=== PATIENT | male | born 1985 | race Caucasian/White ===

== ENCOUNTER 2024-02-10 14:07 | Inpatient (IN) | payer OTHER, SELFPAY ==
[2024-02-10 14:32] VITALS: PULSE 103; RESP 18; TEMP 37.3; O2SAT 96; BMI 35.8
[2024-02-10 14:34] VITALS: BP 134/85; PULSE 103; RESP 18; TEMP 37.3; O2SAT 96
--- NOTE | 2024-02-10 14:37 | ED_ITS ---
HPI - General Adult General Chief complaint: Psychiatric Symptoms Stated complaint: crisis Time Seen by Provider: 02/10/24 14:36 Source: patient Mode of arrival: ambulatory Limitations: no limitations History of Present Illness ED Provider: Linda Easley PA-C HPI narrative: Patient is a 38 year old assigned male at with no reported medical history presenting to the emergency department today with suicidal ideation. Patient states that he has been feeling more depressed lately but does not have a plan. Patient denies any dizziness, lightheadedness, abdominal pain, nausea, vomiting, fever, chills, blurry vision, double vision, loss of vision, chest pain, difficulty breathing, shortness of breath, back pain, night sweats, pain with urination, increased urinary frequency, increased urinary urgency, blood in his urine or stool, syncope or a near syncopal episode, recent trauma or falls, bowel incontinence, bladder incontinence, or any other complaints at this time. Relieving factors: none Exacerbating factors: none Associated symptoms: denies other symptoms Treatments prior to arrival: none Related Data Home Medications ?Medication ?Instructions ?Recorded ?Confirmed aripiprazole 400 mg suspension, 400 mg IM QMONTH 02/10/24 02/10/24 extended rel.intramuscular syringe (Christen Merida) Allergies Allergy/AdvReac Type Severity Reaction Status Date / Time No Known Allergies Allergy Unverified 02/10/24 14:34 Review of Systems 2 Constitutional: Constitutional: Reports no additional constitutional complaints, Denies chills, Denies fever(s) and Denies night sweats Eyes: Eyes: Reports no additional eye complaints, Denies blurry vision, Denies change in vision, Denies diplopia, Denies eye discharge, Denies loss of vision and Denies eye pain ENT: Denies dizziness Cardiovascular: Cardiovascular: Reports no additional cardiovascular complaints, Denies chest pain, Denies lightheadedness, Denies Loss of Consciousness and Denies dyspnea Respiratory: Respiratory: Reports no additional respiratory complaints and Denies dyspnea Gastrointestinal: Gastrointestinal: Reports no additional gastrointestinal complaints, Denies abdominal pain, Denies melena, Denies hematochezia, Denies change in bowel habits and Denies change in stool character Genitourinary: Genitourinary: Reports no additional male genitourinary complaints, Denies hematuria, Denies oliguria, Denies difficulty urinating, Denies dysuria, Denies urinary frequency, Denies urinary hesitancy, Denies urinary incontinence and Denies urinary urgency Musculoskeletal: Musculoskeletal: Reports no additional musculoskeletal complaints, Denies numbness and Denies tingling Neurologic: Denies dizziness, Denies loss of vision, Denies numbness and Denies tingling Psychiatric: Psychiatric: Denies homicidal ideation and Reports suicidal ideation Endocrine: Endocrine: Reports no additional endocrine complaints Hematologic/Lymphatic: Hematologic/Lymphatic: Reports no additional hematologic/lymphatic complaints Allergic/Immunologic: Allergic/Immunologic: Reports no additional allergic/immunologic complaints [facility] Past Medical History Attestation statement: The following information was validated with the patient. Source: old records reviewed and nursing notes reviewed Social History Social History Alcohol intake: current Alcohol intake frequency: holidays/special occasions only Smoked in Last 30 Days: No Use of substances other than those prescribed or required for medical reasons: No Advance Directives: No Advance Directives Information Provided: No Do you have a plan to hurt others: No Plan Physical Exam ED Vital Signs: Vital Signs - 24 hr 02/10/24 14:32 02/10/24 14:34 02/10/24 21:27 Temperature 99.1 F 99.1 F 98.4 F Pulse Rate 103 H 103 H 85 Respiratory Rate 18 18 17 Blood Pressure 134/85 126/91 H Pulse Oximetry 96 96 97 Oxygen Delivery Method Room Air Room Air Room Air 02/11/24 02:17 Temperature 97.9 F Pulse Rate 81 Respiratory Rate 16 Blood Pressure 117/86 Pulse Oximetry 96 Oxygen Delivery Method Room Air BMI result Body Mass Index 35.8 Const General: cooperative, no acute distress, alert and awake Nutritional Appearance: well nourished Orientation/consciousness: patient oriented x3 Limitations: no limitations HENMT Head: Yes normal to inspection and Yes atraumatic Ears: hearing grossly normal bilaterally and external ears normal General nose exam: Normal external nose present, no nasal discharge noted and no epistaxis Face and sinus: Yes normal facial exam, No abrasion and No laceration Mouth: Normal oral and palatal mucosa present, no drooling and no muffled voice Eyes General: appearance normal, both eyes and all related structures Periorbital: periorbital findings normal Eyelids: Yes eyelids normal Conjunctivae: conjunctivae normal Pupils: Equal, round and reactive pupils present EOM: EOMs intact bilaterally Neck Neck: Yes normal visual inspection, Yes full ROM and Yes no lymphadenopathy Chest Chest palpation & inspection: normal inspection of the chest Resp Effort & Inspection: normal respiratory effort and able to speak in complete sentences GI Inspection: Yes normal to inspection Neuro General: patient oriented x3 and moves all extremities Cranial nerves: Yes Equal, round and reactive pupils present Cognition (Neuro): normal cognition Extrem General: Yes normal to inspection, Yes full ROM and Yes capillary refill normal Psych Appearance: grossly normal Mental Status: mental status grossly normal Affect: Sad affect present Attitude: Guarded attititude/behavior present Thought content: Suicidality present Course Reevaluation(s) Reevaluation #1: Physician observation continued. Uneventful night. Vital signs stable. No complaints from nursing overnight. Med reconciliation reviewed and done. Pending disposition. Will continue to monitor. Time: 07:29 Medical Decision Making Medical Decision Making MDM Narrative: Patient is a 38 year old assigned male at with no reported medical history presenting to the emergency department today with suicidal ideation. Patient's physical exam was as noted in the physical exam portion of this note. Patient's blood work was unremarkable. Patient's urine showed no acute process. I explained my physical exam findings as well as all test results to the patient. I answered all questions asked by the patient. Patient's disposition is pending CARE team evaluation. Differential Diagnosis Differential Diagnoses: The differential diagnosis associated with the presentation includes Depression Suicidal ideation Admission/Observation Consideration of admission/observation: Escalation of care including admission/observation considered Patient's disposition will be determined after CARE team evaluation. Lab Data [facility] Lab Attestation statement: I reviewed the patient's lab results. My interpretation of these results are in the MDM Rationale portion of this note. 02/10/24 15:30 02/10/24 15:30 Labs: Lab Results 02/10/24 02/10/24 Range/Units 14:50 15:30 WBC 6.1 (4.8-10.8) X10*3/uL RBC 5.12 (4.60-5.80) X10*6/uL Hgb 14.6 (14.0-18.0) g/dl Hct 43.0 (42.0-52.0) % MCV 84.0 (80.0-98.0) fL MCH 28.5 (27.0-33.0) pg MCHC 34.0 (31.0-36.0) g/dl RDW 12.4 (11.0-16.0) % Plt Count 278 (160-400) X10*3/uL MPV 8.7 L (9.4-12.4) fL Immature Gran % (Auto) 0.5 H (0.0-0.4) % Neut % (Auto) 55.4 (45-73) % Lymph % (Auto) 33.9 (20-40) % [place] % (Auto) 7.2 (2-11) % Eos % (Auto) 2.5 (0-4) % Baso % (Auto) 0.5 (0-2) % Lymph # (Auto) 2.1 (1.2-4.9) X10*3/uL [place] # (Auto) 0.4 (0.1-1.2) X10*3/uL Eos # (Auto) 0.2 (0.0-0.4) X10*3/uL Baso # (Auto) 0.0 (0.0-0.2) X10*3/uL Abs Immat Gran (auto) 0.03 (0.00-0.03) X10*3/uL Absolute Neuts (auto) 3.4 (2.0-8.3) x10*3/uL Absolute Nucleated RBC 0.000 (0.0-0.012) X10*3/uL Nucleated RBC % (auto) 0.0 (0.0-0.2) /100WBC Sodium 141 (135-145) mmol/L Potassium 4.0 (3.3-5.1) mmol/L Chloride 107 (96-108) mmol/L Carbon Dioxide 27 (22-29) mmol/L Anion Gap 11 L (12-20) BUN 7 L (9-16) mg/dL Creatinine 1.10 (0.5-1.4) mg/dL Estim Creat Clear Calc 118.2 Estimated GFR > 60 Random Glucose 79 (60-115) mg/dL Calcium 10.1 (8.4-10.2) mg/dL Total Bilirubin 0.4 (0.0-1.0) mg/dL AST 33 (5-37) U/L ALT 45 H (0-40) U/L Alkaline Phosphatase 76 (39-117) U/L Total Protein 7.7 (6.5-8.0) g/dL Albumin 4.3 (3.5-5.0) g/dL Urine Color Yellow Urine Appearance Clear Urine pH 6.5 (5.0-9.0) Ur Specific [place] 1.010 (1.005-1.025) Urine Protein Negative (Neg-Trace) mg/dL Urine Glucose (UA) 100 H (Negative) mg/dL Urine Ketones Negative (Negative) mg/dL Urine Blood Negative (Negative) Urine Nitrite Negative (Negative) Ur Leukocyte Esterase Negative (Negative) Salicylates < 5.0 L (15-30) mg/dL Urine Opiates Screen Not Detected (Not Detect) Ur Buprenorphine Scrn Not Detected (Not Detect) ng/mL Ur Oxycodone Screen Not Detected (Not Detect) ng/mL Urine Methadone Screen Not Detected (Not Detect) ng/mL Urine Fentanyl Screen Not Detected (Not Detect) Acetaminophen < 3 (<30) mcg/mL Ur Barbiturates Screen Not Detected (Not Detect) Ur Phencyclidine Scrn Not Detected (Not Detect) Ur Amphetamines Screen Not Detected (Not Detect) U Benzodiazepines Scrn Not Detected (Not Detect) Urine Cocaine Screen Not Detected (Not Detect) U Marijuana (THC) Screen Not Detected (Not Detect) Ethyl Alcohol < 10 mg/dL Discharge Plan Discharge Clinical Impression: Suicidal ideation, Depression Patient Disposition: Still a Patient Prescriptions: No Action Abilify Maintena 400 mg suspension,extended rel syring 400 mg IM QMONTH Interventions: [place]-Suicide Risk Severity Scale Last Done: 02/10/24 14:34 Print Language: Latvian
[2024-02-10 14:58] LABS: Appearance Urine Clear; Color Urine Yellow; Glucose Urine UA 100 mg/dL (Negative); Leukocyte Esterase Urine Negative (Negative); Nitrite Urine Negative (Negative); PH 6.5 (5.0-9.0); Urine Blood Negative (Negative); Urine Ketones Negative (Negative); Urine Protein Negative (Neg-Trace)
[2024-02-10 15:08] LABS: Amphetamine Screen Urine Not Detected (Not Detect); Barbiturates, Urine Not Detected (Not Detect); Benzodiazepines Screen Urine Not Detected (Not Detect); Buprenorphine Scr Not Detected (Not Detect); Cannabinoid Screen Urine Not Detected (Not Detect); Cocaine Screen Urine Not Detected (Not Detect); Fentanyl, urine Not Detected (Not Detect); Methadone Screen, Urine Not Detected (Not Detect); Opiate Screen Urine Not Detected (Not Detect); Oxycodone Screen Urine Not Detected (Not Detect); Phencyclidine Screen Urine Not Detected (Not Detect)
[2024-02-10 15:45] LABS: MANUAL DIFF FLAG NO
[2024-02-10 15:46] LABS: Basophils Percent Auto 0.5 % (0-2); Eosinophils Absolute Auto 0.2 X10*3/uL (0.0-0.4); Eosinophils Percent Auto 2.5 % (0-4); Hemoglobin 14.6 g/dl (14.0-18.0); Imm Gran Abs Auto 0.03 X10*3/uL (0.00-0.03); Imm Gran Pct Auto 0.5 % (0.0-0.4); Lymphocytes Absolute Auto 2.1 X10*3/uL (1.2-4.9); Lymphocytes Percent Auto 33.9 % (20-40); Mean Corpuscular Hemoglobin 28.5 pg (27.0-33.0); Mean Platelet Volume 8.7 fL (9.4-12.4); Monocytes Absolute Auto 0.4 X10*3/uL (0.1-1.2); Monocytes Percent Auto 7.2 % (2-11); Neutrophils Absolute Auto 3.4 x10*3/uL (2.0-8.3); Neutrophils Percent Auto 55.4 % (45-73); Platelet Count 278 X10*3/uL (160-400); Red Blood Count 5.12 X10*6/uL (4.60-5.80); Red Cell Distribution Width 12.4 % (11.0-16.0); White Blood Count 6.1 X10*3/uL (4.8-10.8)
[2024-02-10 16:07] LABS: Alanine Aminotransferase 45 U/L (0-40); Albumin Level 4.3 g/dL (3.5-5.0); Alkaline Phosphatase 76 U/L (39-117); Anion Gap 11 (12-20); Aspartate Amino Transferase 33 U/L (5-37); Bilirubin Total 0.4 mg/dL (0.0-1.0); Blood Urea Nitrogen 7 mg/dL (9-16); Calcium 10.1 mg/dL (8.4-10.2); Carbon Dioxide 27 mmol/L (22-29); Chloride 107 mmol/L (96-108); Creatinine Clr Calc Pharmacy 118.2; Estimated Glomerular Filt Rate > 60; Ethanol < 10 mg/dL; Glucose Random 79 mg/dL (60-115); Sodium 141 mmol/L (135-145); Total Protein 7.7 g/dL (6.5-8.0)
[2024-02-10 16:13] LABS: Acetaminophen LAB < 3 mcg/mL (<30); Salicylate < 5.0 mg/dL (15-30)
--- NOTE | 2024-02-10 16:43 | MHC.CARE ---
Patient appears to have a hx of many admissions noted in [facility].
--- NOTE | 2024-02-10 17:01 | MHC.CARE ---
It appears the last time patient was assessed at this ED was 2017, by N, per old hospital records. T/w reached out to his father, Patrick to ascertain how patient has been doing the past few years. He reports patient is living alone on [address], [address], alone in an apartment, with the lights turned off and windows closed for fear someone will break in. The father has not been up to see Juan in the apartment and describes it as ' damp musty and stinky because he wont ever open the windows. There is reportedly trash inside th eapartment and patinet's hygiene in general has been poor. His father reports that he has been living there alone since 11/2023 and prior to this was living with his uncle on [address] in [place]. Patient has not worked since he was age 20. Patrick, who goes by Mo, reports that Juan won't share much info with him about his treatment. He reports that patient does not let people get close to him. Is often dismissive when given advice. No reported legal issues. Patrick reports that that patient had [facility] involvement and jail but likely does not get any care currently. Isolates. Patrick shares that Juan reported hearing voices in the dark. He has a sister, and two nieces, per his father. Not suspected to have legal issues. Father shares that he used to take patient out to eat at [address] and patient would order a lot of food and not eat any of it. Father reports patient has a hx of attempts.
--- NOTE | 2024-02-10 19:54 | PC.NURSE ---
patient appears to remain at rest at present respirations are even and unlabored patient appears in no distress.
[2024-02-10 21:27] VITALS: BP 126/91; PULSE 85; RESP 17; TEMP 36.9; O2SAT 97
[2024-02-11 02:17] VITALS: BP 117/86; PULSE 81; RESP 16; TEMP 36.6; O2SAT 96
--- NOTE | 2024-02-11 08:19 | HE.PHANOTE ---
RE: chacho Spoke to Jo who confirmed patient had his last injection first week of last month
[2024-02-11] MEDS: ARIPiprazole ER 400 MG SUSER.SYR IM (09:24)
--- NOTE | 2024-02-11 12:32 | PC.NURSE ---
Assumed care of this patient at 1100, patient resting quietly on hospital bed, patient admitted w/ bed assignment waiting for transfer.
[2024-02-11 13:18] VITALS: BP 138/88; PULSE 80; RESP 14; TEMP 36.8; O2SAT 96
--- NOTE | 2024-02-11 13:18 | PC.NURSE ---
RN to RN phone report given to Rebeka, requested new set of vitals, new vitals obtained at at time, Rebeka messaged via [employer] w/ new vitals & documented in chart.
[2024-02-11 13:40] VITALS: BP 130/80; PULSE 97; RESP 16; TEMP 37.2; O2SAT 94
[2024-02-11 17:09] VITALS: BMI 31.1
[2024-02-11 20:00] VITALS: BP 127/89; PULSE 86; RESP 16; TEMP 36.5; O2SAT 96
--- NOTE | 2024-02-11 20:36 | PC.NURSE ---
Patient declined flu shot tonight, wants in the a.m.
--- NOTE | 2024-02-11 21:31 | PC.ADMIT ---
Addendum entered by Juana Mayo RN 02/11/24 21:40: Per pt father through crisis eval, pt is a poor historian and is guarded and evasive at baseline. Tox screen negative, non-smoker, requests flu shot. Original Note: Pt arrived to the unit at 1337 from the [facility]. Skin check performed, vitals obtained and pt oriented to the unit. He was placed on 15min checks for safety. Juan self presented to the ED for complaints of SI and worsening depression for over a week. During admission assessment Juan was quiet, guarded, and exhibited poor eye contact. He denied si/hi but did endorse VH and stated, in a soft tone you know when you're talking to someone and they just disappear and you're like whoa, what happened? That . He state this VH has happened twice in the past week. He reports worsening depression the week before his ability injection is due and currently rates it 8/10. He received 400mg Abilify Maintena IM today in the POD (02/11/24).
[2024-02-12 08:00] VITALS: BP 129/63; PULSE 85; RESP 16; TEMP 36.4; O2SAT 98
--- NOTE | 2024-02-12 09:03 | P.PNPSI_ITS ---
Subjective Subjective Date of Service: 02/12/24 Reason For Visit: depressed/SI Interim History: Met With patient; discussed with team Diagnostics Vital Signs (24Hr): Vital Signs - 24 hr 02/11/24 13:18 02/11/24 13:40 02/11/24 20:00 Temperature 98.2 F 98.9 F 97.7 F Pulse Rate 80 97 86 Respiratory Rate 14 16 16 Blood Pressure 138/88 130/80 127/89 Pulse Oximetry 96 94 96 Oxygen Delivery Method Room Air Room Air Room Air 02/12/24 08:00 Temperature 97.5 F Pulse Rate 85 Respiratory Rate 16 Blood Pressure 129/63 Pulse Oximetry 98 Oxygen Delivery Method Room Air BMI result Body Mass Index 31.1 Labs 02/10/24 15:30 02/10/24 15:30 Labs: Laboratory Results - last 48 hr 02/10/24 02/10/24 14:50 15:30 WBC 6.1 RBC 5.12 Hgb 14.6 Hct 43.0 MCV 84.0 MCH 28.5 MCHC 34.0 RDW 12.4 Plt Count 278 MPV 8.7 L Immature Gran % (Auto) 0.5 H Neut % (Auto) 55.4 Lymph % (Auto) 33.9 [place] % (Auto) 7.2 Eos % (Auto) 2.5 Baso % (Auto) 0.5 Lymph # (Auto) 2.1 [place] # (Auto) 0.4 Eos # (Auto) 0.2 Baso # (Auto) 0.0 Abs Immat Gran (auto) 0.03 Absolute Neuts (auto) 3.4 Absolute Nucleated RBC 0.000 Nucleated RBC % (auto) 0.0 Sodium 141 Potassium 4.0 Chloride 107 Carbon Dioxide 27 Anion Gap 11 L BUN 7 L Creatinine 1.10 Estim Creat Clear Calc 118.2 Estimated GFR > 60 Random Glucose 79 Calcium 10.1 Total Bilirubin 0.4 AST 33 ALT 45 H Alkaline Phosphatase 76 Total Protein 7.7 Albumin 4.3 Urine Color Yellow Urine Appearance Clear Urine pH 6.5 Ur Specific [place] 1.010 Urine Protein Negative Urine Glucose (UA) 100 H Urine Ketones Negative Urine Blood Negative Urine Nitrite Negative Ur Leukocyte Esterase Negative Salicylates < 5.0 L Urine Opiates Screen Not Detected Ur Buprenorphine Scrn Not Detected Ur Oxycodone Screen Not Detected Urine Methadone Screen Not Detected Urine Fentanyl Screen Not Detected Acetaminophen < 3 Ur Barbiturates Screen Not Detected Ur Phencyclidine Scrn Not Detected Ur Amphetamines Screen Not Detected U Benzodiazepines Scrn Not Detected Urine Cocaine Screen Not Detected U Marijuana (THC) Screen Not Detected Ethyl Alcohol < 10 Medications Medications Current Medications Acetaminophen (Acetaminophen 325 Mg Tablet) 650 mg PO Q6H PRN PRN Reason: Headache/Pain Mild Scale (1-3) Al Hydroxide/Mg Hydroxide (Magnesium Hydrox/Alum Hydrox 30 Ml Oral.Susp) 30 ml PO Q6H PRN PRN Reason: Heartburn/Nausea Aripiprazole (Aripiprazole Er 400 Mg Suser.Syr) 400 mg IM Q28D SERGIO Last Admin: 02/11/24 09:24 Dose: 400 mg Hydroxyzine HCl (Hydroxyzine Hcl 25 Mg Tablet) 25 mg PO Q6H PRN PRN Reason: Anxiety Magnesium Hydroxide (Milk Of Magnesia 30 Ml Oral.Susp) 30 ml PO DAILY PRN PRN Reason: Constipation Nicotine (Nicotine 21 Mg Patch.Td24) 21 mg TRANSDERMA DAILY PRN PRN Reason: smoking cessation Nicotine Polacrilex (Nicotine Polacrilex 2 Mg Gum) 4 mg BUCCAL Q2H PRN PRN Reason: Nicotine Cravings Olanzapine (Olanzapine 5 Mg Tablet) 5 mg PO TID PRN PRN Reason: agitation Trazodone HCl (Trazodone Hcl 50 Mg Tablet) 50 mg PO BEDTIME MRX1 PRN PRN Reason: Insomnia Allergies Allergies Allergy/AdvReac Type Severity Reaction Status Date / Time No Known Allergies Allergy Unverified 02/10/24 14:34 Assessment & Plan Time Spent With Patient Time: Total time managing care of this patient today ____ minutes.
--- NOTE | 2024-02-12 09:29 | P.HPPS_ITS ---
HPI Date of Service: 02/12/24 Chief Complaint: depressed/SI Sources of Information: patient interviewed, chart reviewed and crisis/core team assessment reviewed HPI Subjective Notes: Kwon Warning, Conditional Voluntary and 3 Day Narrative: Patient is a 38-year-old male with history of schizoaffective disorder, bipolar type who presents for worsening depression, SI and both AH and VH in the face of waning of Abilify Maintena. Patient reports that he takes Abilify Maintena 400 mg monthly and for the 1st 3 weeks it works well, he feels calm and able to live his life. However by the end of the 3rd weekend into the 4th week patient reports he starts to get confused and says I can not think straight... He starts to have auditory hallucinations and sees images of people that look very real however they end up fading into the wall and into the shadows. This past week was such a week and patient started to get depressed, have AVH, feel confused and started feeling suicidal. He was with his counselor who got him to the hospital after patient said that his life is over and expressed SI. Patient got Abilify Maintena in the ED on and says he starting to feel better. Patient endorses what sounds like intermittent manic episodes which time he is hyperactive, talking fast and needs little sleep; denies any drug or alcohol abuse. patient seen on 02/10 and again on 02/11 around 11am Past Psychiatric History: Past hospitalizations Abilify Maintena 400 mg Q monthly which he said he has been on for years Medical Evaluation Reviewed: Yes [facility] Medical History (Updated 02/12/24 @ 16:07 by John Dye MD) Schizoaffective disorder, bipolar type Family History: Defer Social History: Lives on his own Substance History: Deny Trauma History: Defer Diagnostics Vital Signs (24Hr): Vital Signs - 24 hr 02/11/24 13:18 02/11/24 13:40 02/11/24 20:00 Temperature 98.2 F 98.9 F 97.7 F Pulse Rate 80 97 86 Respiratory Rate 14 16 16 Blood Pressure 138/88 130/80 127/89 Pulse Oximetry 96 94 96 Oxygen Delivery Method Room Air Room Air Room Air 02/12/24 08:00 Temperature 97.5 F Pulse Rate 85 Respiratory Rate 16 Blood Pressure 129/63 Pulse Oximetry 98 Oxygen Delivery Method Room Air BMI result Body Mass Index 31.1 Labs 02/10/24 15:30 02/10/24 15:30 Labs: Laboratory Results - last 48 hr 02/10/24 02/10/24 14:50 15:30 WBC 6.1 RBC 5.12 Hgb 14.6 Hct 43.0 MCV 84.0 MCH 28.5 MCHC 34.0 RDW 12.4 Plt Count 278 MPV 8.7 L Immature Gran % (Auto) 0.5 H Neut % (Auto) 55.4 Lymph % (Auto) 33.9 [place] % (Auto) 7.2 Eos % (Auto) 2.5 Baso % (Auto) 0.5 Lymph # (Auto) 2.1 [place] # (Auto) 0.4 Eos # (Auto) 0.2 Baso # (Auto) 0.0 Abs Immat Gran (auto) 0.03 Absolute Neuts (auto) 3.4 Absolute Nucleated RBC 0.000 Nucleated RBC % (auto) 0.0 Sodium 141 Potassium 4.0 Chloride 107 Carbon Dioxide 27 Anion Gap 11 L BUN 7 L Creatinine 1.10 Estim Creat Clear Calc 118.2 Estimated GFR > 60 Random Glucose 79 Calcium 10.1 Total Bilirubin 0.4 AST 33 ALT 45 H Alkaline Phosphatase 76 Total Protein 7.7 Albumin 4.3 Urine Color Yellow Urine Appearance Clear Urine pH 6.5 Ur Specific [place] 1.010 Urine Protein Negative Urine Glucose (UA) 100 H Urine Ketones Negative Urine Blood Negative Urine Nitrite Negative Ur Leukocyte Esterase Negative Salicylates < 5.0 L Urine Opiates Screen Not Detected Ur Buprenorphine Scrn Not Detected Ur Oxycodone Screen Not Detected Urine Methadone Screen Not Detected Urine Fentanyl Screen Not Detected Acetaminophen < 3 Ur Barbiturates Screen Not Detected Ur Phencyclidine Scrn Not Detected Ur Amphetamines Screen Not Detected U Benzodiazepines Scrn Not Detected Urine Cocaine Screen Not Detected U Marijuana (THC) Screen Not Detected Ethyl Alcohol < 10 Meds/Allergies Meds Home Medications ?Medication ?Instructions ?Recorded ?Confirmed ?Type aripiprazole 400 mg suspension, 400 mg IM QMONTH 02/10/24 02/11/24 History extended rel.intramuscular syringe (Lorenalishay Maintena) Allergies Allergies Allergy/AdvReac Type Severity Reaction Status Date / Time No Known Allergies Allergy Unverified 02/10/24 14:34 Mental Status Exam Mental Status Exam Narrative: Pt is alert and oriented; behavior is cooperative, friendly and calm; patient is not in distress; dressed in casual attire, bald, adequate hygiene; mood is described as good and affect blunted; eye contact appropriate; Speech is a little slow, a little soft but normal prosody; some psychomotor retardation present; thought process is organized and goal directed; Thought content is on dealing with AH and VH, tx; otherwise pertinent to relevant topics and without any delusional content, paranoid ideations or grandiosity; denies any SI/HI. AH/VH intermittently present Patients insight and judgment impaired but improving Assessment & Plan Assessment & Plan (1) Schizoaffective disorder, bipolar type: Status: Acute Code(s): F25.0 - Schizoaffective disorder, bipolar type Assessment and Plan: Current episode depressed Plan Patient is a 38-year-old male with history of schizoaffective disorder, bipolar type who presents for worsening depression, SI and both AH and VH in the face of waning of Abilify Maintena. Patient reports that he takes Abilify Maintena 400 mg monthly and for the 1st 3 weeks it works well, he feels calm and able to live his life. However by the end of the 3rd weekend into the 4th week patient reports he starts to get confused and says I can not think straight... He starts to have auditory hallucinations and sees images of people that look very real however they end up fading into the wall and into the shadows. This past week was such a week and patient started to get depressed, have AVH, feel confused and started feeling suicidal. He was with his counselor who got him to the hospital after patient said that his life is over and expressed SI. Patient got Abilify Maintena in the ED on 02/10 and says he starting to feel better, with SI resolved, though he still is having intermittent AVH. Patient endorses what sounds like intermittent manic episodes which time he is hyperactive, talking fast and needs little sleep; denies any drug or alcohol abuse. Formulation/clinical reasoning: History of schizoaffective disorder moderately stable on Abilify Maintena weeks 1 through 3. Discussed plan and patient agrees to take home Abilify p.o. tablets that he can use daily while waiting for next shot Plan: CV; later signed 3 day notice Q 15 minutes Continue Abilify Maintena 400 mg Q 28 days, last received 02/10 Will discharge with Abilify 10 mg p.o. tablets for week 4, before he gets next Maintena dose Patient educated on: diagnosis and medication risk/benefits Informed Consent: understands Reason for continued inpatient stay Substantial Risk for: rapid decompensation Statement Statement: I have reviewed the history and physical and performed a pertinent examination on my patient. No changes have occurred unless specified. If the History and Physical was not performed prior to admission, the Hospitalist's service will be consulted for completing the admission physical. Time Spent With Patient Time: Total time managing care of this patient today ____ minutes.
[2024-02-12 20:00] VITALS: BP 161/83; PULSE 96; RESP 16; TEMP 36.5; O2SAT 97
--- NOTE | 2024-02-13 | ECG_ITS ---
Test Reason : CHEST PAIN Blood Pressure : / mmHG Vent. Rate : 081 BPM Atrial Rate : 081 BPM P-R Int : 160 ms QRS Dur : 090 ms QT Int : 362 ms P-R-T Axes : 044 028 032 degrees QTc Int : 420 ms Normal sinus rhythm Normal ECG When compared with ECG of 11-MAR-2016 02:54, No significant change was found Referred By: John Dye Electronically Signed By:JILLIAN PAK
[2024-02-13 07:38] VITALS: BP 133/77; PULSE 75; RESP 16; TEMP 36.4; O2SAT 96
--- NOTE | 2024-02-13 10:08 | HO.PSYCHPN ---
Subjective Subjective Date of Service: 02/13/24 Reason For Visit: depressed/SI Interim History: Met with patient; discussed with team Earlier today complain of chest pain however he then said he thinks it was just anxiety and it went away; EKG unremarkable Patient says that he is feeling better. Denies any AH and says mostly VH is gone; denies any SI. Would like to discuss possible discharge next week Mental Status Exam Mental Status Exam Narrative: Pt is alert and oriented; behavior is cooperative, friendly and calm; patient is not in distress; dressed in casual attire, bald, adequate hygiene; mood is described as good and affect blunted; eye contact appropriate; Speech is a little slow, a little soft but normal prosody; some psychomotor retardation present; thought process is organized and goal directed; Thought content is on feeling better; otherwise pertinent to relevant topics and without any delusional content, paranoid ideations or grandiosity; denies any SI/HI. Significantly diminished AH/VH Patients insight and judgment impaired but improving and possibly getting close to baseline Diagnostics Vital Signs (24Hr): Vital Signs - 24 hr 02/12/24 20:00 02/13/24 07:38 Temperature 97.7 F 97.6 F Pulse Rate 96 75 Respiratory Rate 16 16 Blood Pressure 161/83 H 133/77 Pulse Oximetry 97 96 Oxygen Delivery Method Room Air Room Air BMI result Body Mass Index 31.1 Labs 02/10/24 15:30 02/10/24 15:30 Medications Medications Current Medications Acetaminophen (Acetaminophen 325 Mg Tablet) 650 mg PO Q6H PRN PRN Reason: Headache/Pain Mild Scale (1-3) Al Hydroxide/Mg Hydroxide (Magnesium Hydrox/Alum Hydrox 30 Ml Oral.Susp) 30 ml PO Q6H PRN PRN Reason: Heartburn/Nausea Aripiprazole (Aripiprazole Er 400 Mg Suser.Syr) 400 mg IM Q28D SERGIO Last Admin: 02/11/24 09:24 Dose: 400 mg Hydroxyzine HCl (Hydroxyzine Hcl 25 Mg Tablet) 25 mg PO Q6H PRN PRN Reason: Anxiety Magnesium Hydroxide (Milk Of Magnesia 30 Ml Oral.Susp) 30 ml PO DAILY PRN PRN Reason: Constipation Nicotine (Nicotine 21 Mg Patch.Td24) 21 mg TRANSDERMA DAILY PRN PRN Reason: smoking cessation Nicotine Polacrilex (Nicotine Polacrilex 2 Mg Gum) 4 mg BUCCAL Q2H PRN PRN Reason: Nicotine Cravings Olanzapine (Olanzapine 5 Mg Tablet) 5 mg PO TID PRN PRN Reason: agitation Trazodone HCl (Trazodone Hcl 50 Mg Tablet) 50 mg PO BEDTIME MRX1 PRN PRN Reason: Insomnia Allergies Allergies Allergy/AdvReac Type Severity Reaction Status Date / Time No Known Allergies Allergy Unverified 02/10/24 14:34 Assessment & Plan Assessment & Plan (1) Schizoaffective disorder, bipolar type: Status: Acute Code(s): F25.0 - Schizoaffective disorder, bipolar type Assessment and Plan: Current episode depressed Plan Patient is a 38-year-old male with history of schizoaffective disorder, bipolar type who presents for worsening depression, SI and both AH and VH in the face of waning of Abilify Maintena. Patient reports that he takes Abilify Maintena 400 mg monthly and for the 1st 3 weeks it works well, he feels calm and able to live his life. However by the end of the 3rd weekend into the 4th week patient reports he starts to get confused and says I can not think straight... He starts to have auditory hallucinations and sees images of people that look very real however they end up fading into the wall and into the shadows. This past week was such a week and patient started to get depressed, have AVH, feel confused and started feeling suicidal. He was with his counselor who got him to the hospital after patient said that his life is over and expressed SI. Patient got Abilify Maintena in the ED on 02/10 and says he starting to feel better, with SI resolved, though he still is having intermittent AVH. Patient endorses what sounds like intermittent manic episodes which time he is hyperactive, talking fast and needs little sleep; denies any drug or alcohol abuse. Formulation/clinical reasoning: History of schizoaffective disorder moderately stable on Abilify Maintena weeks 1 through 3. Discussed plan and patient agrees to take home Abilify p.o. tablets that he can use daily while waiting for next shot Hospital course: 02/12 patient reports that he is feeling better; no AH and only little VH; no SI. Wants to discuss discharge next week Plan: 3 day notice Q 15 minutes Continue Abilify Maintena 400 mg Q 28 days, last received 02/10 Will discharge with Abilify 10 mg p.o. tablets for week 4, before he gets next Maintena dose Patient educated on: diagnosis and medication risk/benefits Informed Consent: understands Reason for continued inpatient stay Substantial Risk for: stable for discharge and rapid decompensation Time Spent With Patient Time: Total time managing care of this patient today ____ minutes.
[2024-02-13] MEDS: hydrOXYzine HCL 25 MG TABLET PO (12:24)
[2024-02-13 20:00] VITALS: BP 130/74; PULSE 95; TEMP 36.3; O2SAT 98
[2024-02-14 08:00] VITALS: BP 110/53; PULSE 67; RESP 16; TEMP 36.4; O2SAT 96
--- NOTE | 2024-02-14 09:44 | HO.PSYCHPN ---
Subjective Subjective Date of Service: 02/14/24 Reason For Visit: depressed/SI Interim History: Met with patient; discussed with team Patient reports that he is feeling better, and that his mood is all right and he would like to discuss discharge. He says he is feeling pretty much back to his regular self and denies any SI. Patient continues to have intermittent AH and VH and reports that last night he heard a swoosh and saw a luminescent floating figure go by that went into the shadows. On inquiry patient wondered if it is because of food ism, or that he was hungry. He consider that perhaps his mind was playing tricks on him in that it was a hallucination but said it seems to happen more often when he is feeling hungry. Patient was little anxious about in turn the lights on before he went back to sleep. Patient's father was visiting and patient said was okay to talk to him. His father meets with him regularly and goes on outings. He feels patient needs much more day structure as he spends a lot of time in his house, alone in the dark; describes what sounds like hoarding and that patient won't throw out trash. Diagnostics Vital Signs (24Hr): Vital Signs - 24 hr 02/13/24 20:00 02/14/24 08:00 Temperature 97.4 F 97.6 F Pulse Rate 95 67 Respiratory Rate 16 Blood Pressure 130/74 110/53 L Pulse Oximetry 98 96 Oxygen Delivery Method Room Air Room Air BMI result Body Mass Index 31.1 Labs 02/10/24 15:30 02/10/24 15:30 Medications Medications Current Medications Acetaminophen (Acetaminophen 325 Mg Tablet) 650 mg PO Q6H PRN PRN Reason: Headache/Pain Mild Scale (1-3) Al Hydroxide/Mg Hydroxide (Magnesium Hydrox/Alum Hydrox 30 Ml Oral.Susp) 30 ml PO Q6H PRN PRN Reason: Heartburn/Nausea Aripiprazole (Aripiprazole Er 400 Mg Suser.Syr) 400 mg IM Q28D SERGIO Last Admin: 02/11/24 09:24 Dose: 400 mg Hydroxyzine HCl (Hydroxyzine Hcl 25 Mg Tablet) 25 mg PO Q6H PRN PRN Reason: Anxiety Last Admin: 02/13/24 12:24 Dose: 25 mg Magnesium Hydroxide (Milk Of Magnesia 30 Ml Oral.Susp) 30 ml PO DAILY PRN PRN Reason: Constipation Nicotine (Nicotine 21 Mg Patch.Td24) 21 mg TRANSDERMA DAILY PRN PRN Reason: smoking cessation Nicotine Polacrilex (Nicotine Polacrilex 2 Mg Gum) 4 mg BUCCAL Q2H PRN PRN Reason: Nicotine Cravings Olanzapine (Olanzapine 5 Mg Tablet) 5 mg PO TID PRN PRN Reason: agitation Trazodone HCl (Trazodone Hcl 50 Mg Tablet) 50 mg PO BEDTIME MRX1 PRN PRN Reason: Insomnia Allergies Allergies Allergy/AdvReac Type Severity Reaction Status Date / Time No Known Allergies Allergy Unverified 02/10/24 14:34 Assessment & Plan Assessment & Plan (1) Schizoaffective disorder, bipolar type: Status: Acute Code(s): F25.0 - Schizoaffective disorder, bipolar type Assessment and Plan: Current episode depressed Plan Patient is a 38-year-old male with history of schizoaffective disorder, bipolar type who presents for worsening depression, SI and both AH and VH in the face of waning of Abilify Maintena. Patient reports that he takes Abilify Maintena 400 mg monthly and for the 1st 3 weeks it works well, he feels calm and able to live his life. However by the end of the 3rd weekend into the 4th week patient reports he starts to get confused and says I can not think straight... He starts to have auditory hallucinations and sees images of people that look very real however they end up fading into the wall and into the shadows. This past week was such a week and patient started to get depressed, have AVH, feel confused and started feeling suicidal. He was with his counselor who got him to the hospital after patient said that his life is over and expressed SI. Patient got Abilify Maintena in the ED on 02/10 and says he starting to feel better, with SI resolved, though he still is having intermittent AVH. Patient endorses what sounds like intermittent manic episodes which time he is hyperactive, talking fast and needs little sleep; denies any drug or alcohol abuse. Formulation/clinical reasoning: History of schizoaffective disorder moderately stable on Abilify Maintena weeks 1 through 3. Discussed plan and patient agrees to take home Abilify p.o. tablets that he can use daily while waiting for next shot Hospital course: 02/12 patient reports that he is feeling better; no AH and only little VH; no SI. Wants to discuss discharge next week 02/13 Patient reports that he is feeling better, and that his mood is all right and he would like to discuss discharge. He says he is feeling pretty much back to his regular self and denies any SI. Patient continues to have intermittent AH and VH and reports that last night he heard a swoosh and saw a luminescent floating figure go by that went into the shadows. On inquiry patient wondered if it is because of food ism, or that he was hungry. He consider that perhaps his mind was playing tricks on him in that it was a hallucination but said it seems to happen more often when he is feeling hungry. Patient was little anxious about in turn the lights on before he went back to sleep. Patient's father was visiting and patient said was okay to talk to him. His father meets with him regularly and goes on outings. He feels patient needs much more day structure as he spends a lot of time in his house, alone in the dark; describes what sounds like hoarding and that patient won't throw out trash. Also says patient is afraid of going to the dentist or to primary care doctor. Plan: 3 day notice Q 15 minutes Continue Abilify Maintena 400 mg Q 28 days, last received 02/10 Will discharge with Abilify 10 mg p.o. tablets for week 4, before he gets next Maintena dose Patient educated on: diagnosis and medication risk/benefits Informed Consent: understands, does not understand and further education needed Reason for continued inpatient stay Substantial Risk for: stable for discharge and rapid decompensation Time Spent With Patient Time: Total time managing care of this patient today ____ minutes.
[2024-02-14 20:00] VITALS: BP 151/80; PULSE 88; TEMP 36.6; O2SAT 97
[2024-02-15 09:07] VITALS: BP 113/72; PULSE 81; RESP 16; TEMP 36.7; O2SAT 96
--- NOTE | 2024-02-15 09:31 | P.PNPSI_ITS ---
Subjective Subjective Date of Service: 02/15/24 Reason For Visit: depressed/SI Interim History: Met with patient; discussed with team Patient feels ready to discharge and reports that his mood is better. However he does say I wish I would stop seeing stuff.. [employer] discussed medication management for this and patient wanted to try something, though not Haldol; discussed risks/side effects of Vraylar and he said he would try it. [employer] discussed patient's concern about going to the dentist and patient shared that his concern was that the dentist would find cavities and want to drill on. He says he wishes he could go to a day program any has in the past but that anxiety has made it hard for him. [employer]ic shared that perhaps Vraylar could help with this as well Mental Status Exam Mental Status Exam Narrative: Pt is alert and oriented; behavior is cooperative, friendly and calm; patient is not in distress; dressed in casual attire, bald, adequate hygiene; mood is described as good and affect blunted; eye contact appropriate; Speech is a little slow, a little soft but normal prosody; some psychomotor retardation present; thought process is organized and goal directed; Thought content is on feeling better; otherwise pertinent to relevant topics and without any delusional content, paranoid ideations or grandiosity; denies any SI/HI. Intermittent VH Patients insight and judgment impaired but improved, at baseline and adequate. Diagnostics Vital Signs (24Hr): Vital Signs - 24 hr 02/14/24 20:00 02/15/24 09:07 Temperature 97.8 F 98.0 F Pulse Rate 88 81 Respiratory Rate 16 Blood Pressure 151/80 H 113/72 Pulse Oximetry 97 96 Oxygen Delivery Method Room Air Room Air BMI result Body Mass Index 31.1 Labs 02/10/24 15:30 02/10/24 15:30 Medications Medications Current Medications Acetaminophen (Acetaminophen 325 Mg Tablet) 650 mg PO Q6H PRN PRN Reason: Headache/Pain Mild Scale (1-3) Al Hydroxide/Mg Hydroxide (Magnesium Hydrox/Alum Hydrox 30 Ml Oral.Susp) 30 ml PO Q6H PRN PRN Reason: Heartburn/Nausea Aripiprazole (Aripiprazole Er 400 Mg Suser.Syr) 400 mg IM Q28D SERGIO Last Admin: 02/11/24 09:24 Dose: 400 mg Hydroxyzine HCl (Hydroxyzine Hcl 25 Mg Tablet) 25 mg PO Q6H PRN PRN Reason: Anxiety Last Admin: 02/13/24 12:24 Dose: 25 mg Magnesium Hydroxide (Milk Of Magnesia 30 Ml Oral.Susp) 30 ml PO DAILY PRN PRN Reason: Constipation Nicotine (Nicotine 21 Mg Patch.Td24) 21 mg TRANSDERMA DAILY PRN PRN Reason: smoking cessation Nicotine Polacrilex (Nicotine Polacrilex 2 Mg Gum) 4 mg BUCCAL Q2H PRN PRN Reason: Nicotine Cravings Olanzapine (Olanzapine 5 Mg Tablet) 5 mg PO TID PRN PRN Reason: agitation Trazodone HCl (Trazodone Hcl 50 Mg Tablet) 50 mg PO BEDTIME MRX1 PRN PRN Reason: Insomnia Allergies Allergies Allergy/AdvReac Type Severity Reaction Status Date / Time No Known Allergies Allergy Unverified 02/10/24 14:34 Assessment & Plan Assessment & Plan (1) Schizoaffective disorder, bipolar type: Status: Acute Code(s): F25.0 - Schizoaffective disorder, bipolar type Assessment and Plan: Current episode depressed Plan Patient is a 38-year-old male with history of schizoaffective disorder, bipolar type who presents for worsening depression, SI and both AH and VH in the face of waning of Abilify Maintena. Patient reports that he takes Abilify Maintena 400 mg monthly and for the 1st 3 weeks it works well, he feels calm and able to live his life. However by the end of the 3rd weekend into the 4th week patient reports he starts to get confused and says I can not think straight... He starts to have auditory hallucinations and sees images of people that look very real however they end up fading into the wall and into the shadows. This past week was such a week and patient started to get depressed, have AVH, feel confused and started feeling suicidal. He was with his counselor who got him to the hospital after patient said that his life is over and expressed SI. Patient got Abilify Maintena in the ED on 02/10 and says he starting to feel better, with SI resolved, though he still is having intermittent AVH. Patient endorses what sounds like intermittent manic episodes which time he is hyperactive, talking fast and needs little sleep; denies any drug or alcohol abuse. Formulation/clinical reasoning: History of schizoaffective disorder moderately stable on Abilify Maintena weeks 1 through 3. Discussed plan and patient agrees to take home Abilify p.o. tablets that he can use daily while waiting for next shot Hospital course: 02/12 patient reports that he is feeling better; no AH and only little VH; no SI. Wants to discuss discharge next week 02/13 Patient reports that he is feeling better, and that his mood is all right and he would like to discuss discharge. He says he is feeling pretty much back to his regular self and denies any SI. Patient continues to have intermittent AH and VH and reports that last night he heard a swoosh and saw a luminescent floating figure go by that went into the shadows. On inquiry patient wondered if it is because of food ism, or that he was hungry. He consider that perhaps his mind was playing tricks on him in that it was a hallucination but said it seems to happen more often when he is feeling hungry. Patient was little anxious about in turn the lights on before he went back to sleep. Patient's father was visiting and patient said was okay to talk to him. His father meets with him regularly and goes on outings. He feels patient needs much more day structure as he spends a lot of time in his house, alone in the dark; describes what sounds like hoarding and that patient won't throw out trash. Also says patient is afraid of going to the dentist or to primary care doctor. 02/15 something, though not Haldol; discussed risks/side effects of Vraylar and he said he would try it. [employer] discussed patient's concern about going to the dentist and patient shared that his concern was that the dentist would find cavities and want to drill on. He says he wishes he could go to a day program any has in the past but that anxiety has made it hard for him. [employer]ic shared that perhaps Vraylar could help with this as well Plan: 3 day notice Q 15 minutes Start Vraylar 1.5 mg 1 time dose and then daily Continue Abilify Maintena 400 mg Q 28 days, last received 02/10 Will discharge with Abilify 10 mg p.o. tablets for week 4, before he gets next Maintena dose Patient educated on: diagnosis, medication risk/benefits and therapeutic strategies Informed Consent: understands and further education needed Reason for continued inpatient stay Substantial Risk for: stable for discharge Time Spent With Patient Time: Total time managing care of this patient today ____ minutes.
[2024-02-15 10:48] LABS: Cholesterol 168 mg/dL (<200); HDL Cholesterol 50 mg/dL (>40); LDL Cholesterol Calculated 78 mg/dL (<100); Triglycerides 204 mg/dL (<150)
[2024-02-15 10:49] LABS: Estimated Average Glucose 100 mg/dL; Hemoglobin A1C 129.0731 umol/L; Hemoglobin A1c % 5.1 % (<6.0); Total Hemoglobin (HGBA1C) 3984.2176 umol/L
[2024-02-15 11:04] LABS: TSH reflex Free T4 1.26 uIU/mL (0.32-4.0)
[2024-02-15] MEDS: Cariprazine HCl 1.5 MG CAPSULE PO (11:39)
[2024-02-15 20:00] VITALS: BP 122/77; PULSE 93; RESP 16; TEMP 36.4; O2SAT 98
[2024-02-16 08:00] VITALS: BP 126/77; PULSE 66; RESP 16; TEMP 36.4; O2SAT 98
--- NOTE | 2024-02-16 08:37 | PM.PSYDC ---
DS: Providers Provider Date of Service: 02/16/24 Date of admission: 02/11/24 11:32 Date of discharge: 02/16/24 Primary care physician: None Physician Attending physician on admission: John Dye Attending physician on discharge: John Dye DS: Diagnosis Discharge Diagnosis (1) Schizoaffective disorder, bipolar type: Status: Acute DS: Medications Discharge Medications Home Medications: Previous Rx's ?Medication ?Instructions ?Recorded aripiprazole 10 mg tablet (Abilify) 10 mg PO DAILY PRN breakthrough 02/16/24 symptoms 7 days #7 tabs aripiprazole 400 mg suspension, 400 mg IM Q28D 24 days #1 ea 02/16/24 extended rel.intramuscular syringe (Abilify Maintena) cariprazine 1.5 mg capsule 1.5 mg PO DAILY 30 days #30 caps 02/16/24 (Vraylar) Mental Status Exam Mental Status Exam Narrative: Pt is alert and oriented; behavior is cooperative, friendly and calm; patient is not in distress; dressed in casual attire, bald, adequate hygiene; mood is described as good and affect blunted; eye contact appropriate; Speech is a little slow, a little soft but normal prosody; some psychomotor retardation present; thought process is organized and goal directed; Thought content is on feeling better; otherwise pertinent to relevant topics and without any delusional content, paranoid ideations or grandiosity; denies any SI/HI. Intermittent VH Patients insight and judgment impaired but improved, at baseline and adequate. Data Data Completed and Pending Completed studies during hospitalization [Text1]: 02/10/24 02/10/24 02/15/24 14:50 15:30 09:50 WBC 6.1 RBC 5.12 Hgb 14.6 Hct 43.0 MCV 84.0 MCH 28.5 MCHC 34.0 RDW 12.4 Plt Count 278 MPV 8.7 L Immature Gran % (Auto) 0.5 H Neut % (Auto) 55.4 Lymph % (Auto) 33.9 [place] % (Auto) 7.2 Eos % (Auto) 2.5 Baso % (Auto) 0.5 Lymph # (Auto) 2.1 [place] # (Auto) 0.4 Eos # (Auto) 0.2 Baso # (Auto) 0.0 Abs Immat Gran (auto) 0.03 Absolute Neuts (auto) 3.4 Absolute Nucleated RBC 0.000 Nucleated RBC % (auto) 0.0 Sodium 141 Potassium 4.0 Chloride 107 Carbon Dioxide 27 Anion Gap 11 L BUN 7 L Creatinine 1.10 Estim Creat Clear Calc 118.2 Estimated GFR > 60 Random Glucose 79 Estimat Average Glucose 100 Hemoglobin A1c % 5.1 Calcium 10.1 Total Bilirubin 0.4 AST 33 ALT 45 H Alkaline Phosphatase 76 Total Protein 7.7 Albumin 4.3 Triglycerides 204 H Cholesterol 168 LDL Cholesterol, Calc 78 HDL Cholesterol 50 TSH 1.26 Urine Color Yellow Urine Appearance Clear Urine pH 6.5 Ur Specific [place] 1.010 Urine Protein Negative Urine Glucose (UA) 100 H Urine Ketones Negative Urine Blood Negative Urine Nitrite Negative Ur Leukocyte Esterase Negative Salicylates < 5.0 L Urine Opiates Screen Not Detected Ur Buprenorphine Scrn Not Detected Ur Oxycodone Screen Not Detected Urine Methadone Screen Not Detected Urine Fentanyl Screen Not Detected Acetaminophen < 3 Ur Barbiturates Screen Not Detected Ur Phencyclidine Scrn Not Detected Ur Amphetamines Screen Not Detected U Benzodiazepines Scrn Not Detected Urine Cocaine Screen Not Detected U Marijuana (THC) Screen Not Detected Ethyl Alcohol < 10 DS: Summary Hospital Course Hospital Course: Patient is a 38-year-old male with history of schizoaffective disorder, bipolar type who presents for worsening depression, SI and both AH and VH in the face of waning of Abilify Maintena. Patient reports that he takes Abilify Maintena 400 mg monthly and for the 1st 3 weeks it works well, he feels calm and able to live his life. However by the end of the 3rd weekend into the 4th week patient reports he starts to get confused and says I can not think straight... He starts to have auditory hallucinations and sees images of people that look very real however they end up fading into the wall and into the shadows. This past week was such a week and patient started to get depressed, have AVH, feel confused and started feeling suicidal. He was with his counselor who got him to the hospital after patient said that his life is over and expressed SI. Patient got Abilify Maintena in the ED on 02/10 and says he starting to feel better, with SI resolved, though he still is having intermittent AVH. Patient endorses what sounds like intermittent manic episodes which time he is hyperactive, talking fast and needs little sleep; denies any drug or alcohol abuse. Formulation/clinical reasoning: History of schizoaffective disorder moderately stable on Abilify Maintena weeks 1 through 3. Discussed plan and patient agrees to take home Abilify p.o. tablets that he can use daily while waiting for next shot Hospital course: 02/12 patient reports that he is feeling better; no AH and only little VH; no SI. Wants to discuss discharge next week 02/13 Patient reports that he is feeling better, and that his mood is all right and he would like to discuss discharge. He says he is feeling pretty much back to his regular self and denies any SI. Patient continues to have intermittent AH and VH and reports that last night he heard a swoosh and saw a luminescent floating figure go by that went into the shadows. On inquiry patient wondered if it is because of food ism, or that he was hungry. He consider that perhaps his mind was playing tricks on him in that it was a hallucination but said it seems to happen more often when he is feeling hungry. Patient was little anxious about in turn the lights on before he went back to sleep. Patient's father was visiting and patient said was okay to talk to him. His father meets with him regularly and goes on outings. He feels patient needs much more day structure as he spends a lot of time in his house, alone in the dark; describes what sounds like hoarding and that patient won't throw out trash. Also says patient is afraid of going to the dentist or to primary care doctor. 02/15 patient plans to discharge tomorrow overall says he is feeling better. However he adds I wish I would stop seeing stuff.. Vehicle Insurance Agent discussed medication management for this and patient wanted to try something, though not Haldol; discussed risks/side effects of Vraylar and he said he would try it as it may also help him with anxiety that has made it difficult for him to interact with others. -patient did try Vraylar however felt it caused him nausea and did not want to continue with it. On day of discharge, patient remained stable and said that his mood was good. SI remained fully resolved. Although he did not want to continue with Vraylar, Patient agreed to getting Abilify Maintena a little sooner and the cycle, every 24-25 days and would use Abilify tablets is p.r.n. for breakthrough symptoms. He has remained in good behavioral and impulse control throughout his time in the unit and though mostly keeping to himself, been appropriate with peers and staff. Patient is at baseline and his 3 day notice is due. Patient is not in imminent risk for harm to self and request for discharge honored. Time spent discussing smoking cessation with patient: 3 to 10 minutes Status at Discharge Functional status at discharge: independent ambulation Overall status at discharge: patient is back to baseline Time Spent with Patient Time attestation: Total time managing care of this patient today _40___ minutes. Time spent: Greater than 30 minutes Specific discharge activities: Met With patient; discussed with team; sent prescriptions, charting Discharge Plan Discharge Anticipated Discharge Date/Time: 02/16/24 11:00 Patient Disposition: Home, Self-Care Discharge Diagnosis: schizoaffective disorder, bipolar type Referrals: [facility] [employer] ([facility]): Karol James [Other] - 03/20/24 11:00 am (Hospital Discharge Appointment Appointment is in person at [facility]) Physician,None [Primary Care Provider] - 1 Week (Pt refused to sign release for PCP. Pt will follow up with PCP and schedule appointment after discharge. ) Discharge Medications: New aripiprazole [Abilify] 10 mg tablet 10 mg PO DAILY PRN (Reason: breakthrough symptoms) 7 Days Qty: 7 0RF Rx Instructions: take 1 tab daily as needed during week prior to getting KAPOOR Maintenna Changed Abilify Maintena 400 mg suspension,extended rel syring 400 mg IM Q28D 24 Days Qty: 1 0RF Rx Instructions: last received 02/11/24 Discharge Orders: Discharge Order (Routine); Ordered 02/16/24 Ordered By: John Dye Diet: Regular diet Activity on Discharge: As tolerated Stand Alone Forms: Patient Portal Discharge page, Community Support Print Language: Amharic Care Plan Goals: Maintain mood and safe behaviors Take medications as prescribed Practice coping skills Continue with outpatient providers and reach out to them as needed Health Concerns: Mood stability and behaviors Plan of Treatment: Follow up with your PCP, psychiatric provider and other outpatient providers regarding above concerns Take medications as prescribed Assessment: Risk assessment at time of discharge:? Patient was interviewed prior to discharge and found to be fully oriented and without any SI or HI. Patient has improved insight and judgment and wants to continue treatment. Patient is not in imminent risk of harm to self or others and has a safety plan that includes presenting to the closest ER or calling 911 if feeling unsafe.? Patient has been observed closely by nursing and unit staff throughout admission; patient has not engaged in any behaviors that suggest dangerousness to self or others and has demonstrated appropriate behaviors and impulse control Discharge Date/Time: 02/16/24 10:55
--- NOTE | 2024-02-18 08:02 | MHC.CARE ---
T/W spoke with Mario from [facility] who reported that she was in the community in the streets of [place] assessing Pt. Pt is reporting he was discharhed from [facility] at [facility] 2 days ago and is endorsing SI with no plan, A/V/H and does not feel safe going back into his own home. [facility] reported that her disposition was [facility] and she would be sending the assessment over once it is typed. Pt will be transporting to the [facility] ED via ambulance and will not be coming on a Section 12a.
== END 2024-02-16 10:55 | disposition home or self-care (01) | DRG 885 ==
LOC: HO.ED 16:56 → HO.PM5 02-11 12:02
PROVIDERS: Admitting Provider Psychiatry & Neurology Psychiatry; Emergency Provider Student in an Organized Health Care Education/Training Program; Visit Provider Psychiatry & Neurology Psychiatry
DX: F25.0 Schizoaffective disorder, bipolar type (principal); R45.851 Suicidal ideations; Z79.899 Other long term (current) drug therapy
CPT/HCPCS: 36415; 80053; 80061; 80143; 80179; 80307; 81003; 83036; 84443; 85025; 93005; 99285; J0401; S9485

== ENCOUNTER → 2024-02-11 11:32 | Outpatient (BNV) | payer OTHER, SELFPAY | PROVIDERS: Admitting Provider Psychiatry & Neurology Psychiatry; Emergency Provider Student in an Organized Health Care Education/Training Program; Visit Provider Psychiatry & Neurology Psychiatry | DX: F25.0 Schizoaffective disorder, bipolar type (principal) | CPT/HCPCS: 90792; 99232; 99239 ==

== ENCOUNTER 2024-02-18 08:28 | Emergency (ER) | payer OTHER, SELFPAY ==
--- NOTE | 2024-02-18 | ECG_ITS ---
Test Reason : psych patient Blood Pressure : / mmHG Vent. Rate : 062 BPM Atrial Rate : 062 BPM P-R Int : 174 ms QRS Dur : 094 ms QT Int : 416 ms P-R-T Axes : 008 019 022 degrees QTc Int : 422 ms Normal sinus rhythm Early repolarization Normal ECG When compared with ECG of 13-FEB-2024 12:48, No significant change was found Referred By: Marie Mckeon Electronically Signed By:OUSMANE DOTSON MD
--- NOTE | 2024-02-18 08:33 | ED.GENADULT ---
HPI - General Adult General Chief complaint: Psychiatric Symptoms Stated complaint: SI Source: patient Mode of arrival: ambulatory Limitations: no limitations History of Present Illness ED Provider: Willy HOWARD HPI narrative: 30-year-old male with pertinent history of schizoaffective disorder, bipolar type, depression, suicidal ideation with hopes of suicide, his plan is to jump off a bridge. He was seen in the community by [facility] who determined he would be an inpatient level of care. He reports he has no medical complaints today. Denies drugs, alcohol, tobacco. No visual, auditory or tactile hallucinations. Was recently admitted to this facility. Related Data Previous Rx's ?Medication ?Instructions ?Recorded aripiprazole 10 mg tablet (Abilify) 10 mg PO DAILY PRN breakthrough 02/16/24 symptoms 7 days #7 tabs aripiprazole 400 mg suspension, 400 mg IM Q28D 24 days #1 ea 02/16/24 extended rel.intramuscular syringe (Abilify Maintena) Allergies Allergy/AdvReac Type Severity Reaction Status Date / Time No Known Allergies Allergy Unverified 02/18/24 08:50 Review of Systems Review of Systems: Yes all other systems are reviewed and are negative [facility] Past Medical History Attestation statement: The following information was validated with the patient. Source: old records reviewed and nursing notes reviewed Medical History Schizoaffective disorder, bipolar type Social History Social History Household Members: None Housing: Apartment Do you presently have visiting nurse or other home services: No Alcohol intake: former Patient Tobacco Use Status: Never used Tobacco Smoked in Last 30 Days: No Use of substances other than those prescribed or required for medical reasons: No Advance Directives: No Advance Directives Information Provided: No service: No Sexual orientation: Don't Know Physical Exam ED Vital Signs: Vital Signs - 24 hr 02/18/24 08:49 Temperature 98 F Pulse Rate 74 Respiratory Rate 18 Blood Pressure 117/73 Pulse Oximetry 95 Oxygen Delivery Method Room Air BMI result Body Mass Index 32.3 vss Appearance: Alert.? Oriented X3.? No acute distress.? Head: Normocephalic, atraumatic, no step-offs or deformities Eyes: Pupils equal, round and reactive to light.? ENT: Pharynx normal.? Neck: Normal inspection.? Neck supple.? CVS: Normal heart rate and rhythm.? Pulses normal.? Respiratory: No respiratory distress.? Breath sounds normal.? Abdomen: Soft and nontender.? Skin: Skin warm and dry.? Normal skin color.? Normal skin turgor.? Extremities: No lower extremity edema.? No calf ttp. 5/5 strength to bilateral upper and lower extremities Neuro: Oriented X 3.? No motor deficit.? No sensory deficit. CN 2-12 intact Course Reevaluation(s) Reevaluation #1: CBC unremarkable. Chemistry no acute findings needing intervention. UA unremarkable. Urine toxicology negative. Ethanol negative. At this time patient to be placed into observation to allow more time to be evaluated by behavioral health team. Likely inpatient admission. Time: 11:15 Reevaluation #2: end of physician observation at this time as patient is being admitted to [place] for psychiatric admission, at this time the patient is calm Time: 16:24 Medications Administered Discontinued Medications Generic Name Dose Route Start Last Admin Trade Name Freq PRN Reason Stop Dose Admin Non-Formulary Medication 400 mg 02/18/24 11:15 02/18/24 11:24 Aripiprazole [Abilifmeryl Maintena] IM Not Given Q28D [facility] Medical Decision Making Medical Decision Making [facility] Narrative: 30-year-old male presents with suicidal ideation with plan to jump off bridge. Physical exam benign History and physical exam concerning for schizoaffective disorder, bipolar type, suicidal ideation. Unlikely metabolic derangements. Plan evaluation by care team and medical clearance. Differential Diagnosis Differential Diagnoses: The differential diagnosis associated with the presentation includes (History and physical exam concerning for schizoaffective disorder, bipolar type, suicidal ideation. Unlikely metabolic derangements.) Admission/Observation Consideration of admission/observation: Escalation of care including admission/observation considered Consult Healthcare Provider Management of the patient was discussed with: Behavioral Health Provider Lab Data [facility] Lab Attestation statement: I reviewed the patient's lab results. 02/18/24 09:14 02/18/24 09:14 Labs: Lab Results 02/18/24 Range/Units 09:14 WBC 7.1 (4.8-10.8) X10*3/uL RBC 5.19 (4.60-5.80) X10*6/uL Hgb 14.8 (14.0-18.0) g/dl Hct 44.1 (42.0-52.0) % MCV 85.0 (80.0-98.0) fL MCH 28.5 (27.0-33.0) pg MCHC 33.6 (31.0-36.0) g/dl RDW 13.1 (11.0-16.0) % Plt Count 251 (160-400) X10*3/uL MPV 8.6 L (9.4-12.4) fL Immature Gran % (Auto) 0.1 (0.0-0.4) % Neut % (Auto) 65.6 (45-73) % Lymph % (Auto) 24.6 (20-40) % [place] % (Auto) 7.9 (2-11) % Eos % (Auto) 1.4 (0-4) % Baso % (Auto) 0.4 (0-2) % Lymph # (Auto) 1.8 (1.2-4.9) X10*3/uL [place] # (Auto) 0.6 (0.1-1.2) X10*3/uL Eos # (Auto) 0.1 (0.0-0.4) X10*3/uL Baso # (Auto) 0.0 (0.0-0.2) X10*3/uL Abs Immat Gran (auto) 0.01 (0.00-0.03) X10*3/uL Absolute Neuts (auto) 4.7 (2.0-8.3) x10*3/uL Absolute Nucleated RBC 0.000 (0.0-0.012) X10*3/uL Nucleated RBC % (auto) 0.0 (0.0-0.2) /100WBC Sodium 141 (135-145) mmol/L Potassium 4.0 (3.3-5.1) mmol/L Chloride 106 (96-108) mmol/L Carbon Dioxide 26 (22-29) mmol/L Anion Gap 13 (12-20) BUN 13 (9-16) mg/dL Creatinine 1.19 (0.5-1.4) mg/dL Estim Creat Clear Calc 103.8 Estimated GFR > 60 Random Glucose 98 (60-115) mg/dL Calcium 9.5 (8.4-10.2) mg/dL Magnesium 2.2 (1.6-2.6) mg/dL Total Bilirubin 0.9 (0.0-1.0) mg/dL AST 32 (5-37) U/L ALT 61 H (0-40) U/L Alkaline Phosphatase 78 (39-117) U/L Total Protein 7.3 (6.5-8.0) g/dL Albumin 4.2 (3.5-5.0) g/dL Urine Color Dark Yellow Urine Appearance Clear Urine pH 5.5 (5.0-9.0) Ur Specific [place] >= 1.030 H (1.005-1.025) Urine Protein 30 (1+) H (Neg-Trace) mg/dL Urine Glucose (UA) Negative (Negative) mg/dL Urine Ketones Trace (Negative) mg/dL Urine Blood Negative (Negative) Urine Nitrite Negative (Negative) Ur Leukocyte Esterase Trace H (Negative) Urine RBC 0-2 (0-2) /HPF Urine WBC 0-5 (0-5) /HPF Ur Squamous Epith Cells 0-2 (0-2) /HPF Urine Bacteria None Seen (None Seen) Hyaline Casts 0-2 (0-2) /LPF Urine Opiates Screen Not Detected (Not Detect) Ur Buprenorphine Scrn Not Detected (Not Detect) ng/mL Ur Oxycodone Screen Not Detected (Not Detect) ng/mL Urine Methadone Screen Not Detected (Not Detect) ng/mL Urine Fentanyl Screen Not Detected (Not Detect) Ur Barbiturates Screen Not Detected (Not Detect) Ur Phencyclidine Scrn Not Detected (Not Detect) Ur Amphetamines Screen Not Detected (Not Detect) U Benzodiazepines Scrn Not Detected (Not Detect) Urine Cocaine Screen Not Detected (Not Detect) U Marijuana (THC) Screen Not Detected (Not Detect) Ethyl Alcohol < 10 mg/dL External Record Review External record reviewed: Inpatient record, Office record, Outpatient record, Prior outpatient labs, Prior outpatient radiology, Primary care record and Outside ED record Critical Care Time Critical Care Time Critical Care Time: No Discharge Plan Discharge Clinical Impression: Schizoaffective disorder, bipolar type, Suicidal ideation Patient Disposition: Still a Patient Prescriptions: No Action aripiprazole [Abilify] 10 mg tablet 10 mg PO DAILY PRN (Reason: breakthrough symptoms) 7 Days Qty: 7 0RF Rx Instructions: take 1 tab daily as needed during week prior to getting KAPOOR Maintenna Abilify Maintena 400 mg suspension,extended rel syring 400 mg IM Q28D 24 Days Qty: 1 0RF Rx Instructions: last received 02/11/24 Interventions: [place]-Suicide Risk Severity Scale Last Done: 02/18/24 09:05 Print Language: Mohawk
[2024-02-18 08:39] VITALS: BP 120/86; PULSE 83; O2SAT 96
[2024-02-18 08:49] VITALS: BP 117/73; PULSE 74; RESP 18; TEMP 36.6; O2SAT 95; BMI 32.3
--- NOTE | 2024-02-18 09:03 | PC.NURSE ---
changed over by emma- belongings placed in C7
[2024-02-18 09:20] LABS: MANUAL DIFF FLAG NO
[2024-02-18 09:22] LABS: Basophils Percent Auto 0.4 % (0-2); Eosinophils Absolute Auto 0.1 X10*3/uL (0.0-0.4); Eosinophils Percent Auto 1.4 % (0-4); Hematocrit 44.1 % (42.0-52.0); Hemoglobin 14.8 g/dl (14.0-18.0); Imm Gran Abs Auto 0.01 X10*3/uL (0.00-0.03); Imm Gran Pct Auto 0.1 % (0.0-0.4); Lymphocytes Absolute Auto 1.8 X10*3/uL (1.2-4.9); Lymphocytes Percent Auto 24.6 % (20-40); Mean Corpuscular HGB Conc 33.6 g/dl (31.0-36.0); Mean Corpuscular Hemoglobin 28.5 pg (27.0-33.0); Mean Platelet Volume 8.6 fL (9.4-12.4); Monocytes Absolute Auto 0.6 X10*3/uL (0.1-1.2); Monocytes Percent Auto 7.9 % (2-11); Neutrophils Absolute Auto 4.7 x10*3/uL (2.0-8.3); Neutrophils Percent Auto 65.6 % (45-73); Platelet Count 251 X10*3/uL (160-400); Red Blood Count 5.19 X10*6/uL (4.60-5.80); Red Cell Distribution Width 13.1 % (11.0-16.0); White Blood Count 7.1 X10*3/uL (4.8-10.8)
[2024-02-18 09:24] LABS: Appearance Urine Clear; Color Urine Dark Yellow; Glucose Urine UA Negative (Negative); Leukocyte Esterase Urine Trace (Negative); Nitrite Urine Negative (Negative); PH 5.5 (5.0-9.0); Specific Gravity - Urine >= 1.030 (1.005-1.025); UMIC TRIGGER UACC YES; Urine Blood Negative (Negative); Urine Ketones Trace mg/dL (Negative); Urine Protein 30 (1+) mg/dL (Neg-Trace)
[2024-02-18 09:29] LABS: Bacteria Urine None Seen (None Seen); Hyaline Casts Urine 0-2 /LPF (0-2); RBC Urine 0-2 /HPF (0-2); Squamous Epithelial Cell Urine 0-2 /HPF (0-2); WBC Urine 0-5 /HPF (0-5)
[2024-02-18 09:36] LABS: Amphetamine Screen Urine Not Detected (Not Detect); Barbiturates, Urine Not Detected (Not Detect); Benzodiazepines Screen Urine Not Detected (Not Detect); Buprenorphine Scr Not Detected (Not Detect); Cannabinoid Screen Urine Not Detected (Not Detect); Cocaine Screen Urine Not Detected (Not Detect); Fentanyl, urine Not Detected (Not Detect); Methadone Screen, Urine Not Detected (Not Detect); Opiate Screen Urine Not Detected (Not Detect); Oxycodone Screen Urine Not Detected (Not Detect); Phencyclidine Screen Urine Not Detected (Not Detect)
[2024-02-18 09:45] LABS: Alanine Aminotransferase 61 U/L (0-40); Albumin Level 4.2 g/dL (3.5-5.0); Alkaline Phosphatase 78 U/L (39-117); Anion Gap 13 (12-20); Aspartate Amino Transferase 32 U/L (5-37); Bilirubin Total 0.9 mg/dL (0.0-1.0); Blood Urea Nitrogen 13 mg/dL (9-16); Calcium 9.5 mg/dL (8.4-10.2); Carbon Dioxide 26 mmol/L (22-29); Chloride 106 mmol/L (96-108); Creatinine Clr Calc Pharmacy 103.8; Estimated Glomerular Filt Rate > 60; Ethanol < 10 mg/dL; Glucose Random 98 mg/dL (60-115); Magnesium 2.2 mg/dL (1.6-2.6); Sodium 141 mmol/L (135-145); Total Protein 7.3 g/dL (6.5-8.0)
--- NOTE | 2024-02-18 11:24 | PC.NURSE ---
IM abilify given last 02/11/24
--- NOTE | 2024-02-18 11:59 | PHA.MEDREC ---
Pharmacy Consult ? Medication Reconciliation Pharmacy reviewed med rec done by nursing. Claims matched what nurse had on Med Rec only thing I noticed was Vraylar 1.5mg caps were filled 02/16/24 1 tab daily for 30 days was left off of it. I messaged the nurse who confirmed it and she stated He told me he only took two meds but I?ll ask him again now and then stated He said he took one dose here but didn?t like it and it was stopped . Leaving off Med Rec.
--- NOTE | 2024-02-18 13:39 | MHC.CARE ---
Patient accepted to [address] [place] [address] ETA 330pm. Accepting doc is Jovany Wooten, CARE Team and RN aware, transport is being booked now.
--- NOTE | 2024-02-18 14:31 | PC.NURSE ---
RN to RN with Antoni at [place].
[2024-02-18 17:17] VITALS: BP 112/80; PULSE 82; RESP 16; TEMP 36.7; O2SAT 96
== END 2024-02-18 17:20 ==
PROVIDERS: Physician Assistant; Emergency Provider Emergency Medicine
DX: F25.0 Schizoaffective disorder, bipolar type (principal); R45.851 Suicidal ideations; Z79.899 Other long term (current) drug therapy
CPT/HCPCS: 36415; 80053; 80307; 81001; 83735; 85025; 93005; 99285

== ENCOUNTER → 2024-02-18 10:24 | Outpatient (BNV) | payer OTHER, SELFPAY | PROVIDERS: Emergency Provider Emergency Medicine; Visit Provider Internal Medicine Cardiovascular Disease | DX: Z51.81 Encounter for therapeutic drug level monitoring (principal) | CPT/HCPCS: 93010 ==

== ENCOUNTER 2024-08-11 10:52 | Inpatient (IN) | payer OTHER, SELFPAY ==
--- NOTE | 2024-08-11 11:00 | ED_ITS ---
HPI - General Adult General Chief complaint: Psychiatric Symptoms Stated complaint: Crisis Time Seen by Provider: 08/11/24 11:20 Source: patient Mode of arrival: ambulatory Limitations: no limitations History of Present Illness ED Provider: Linda Easley PA-C HPI narrative: Patient is a 39 year old assigned male at with a history of schizoaffective disorder and depression presenting to the emergency department today with suicidal ideation. Patient states that he was hoping to speak with the doctor who helps with committing suicide . Patient states that he no longer wants to live and if this hospital doesn't have a doctor to help him kill himself he'd like to go somewhere that does. Patient denies any dizziness, lightheadedness, abdominal pain, nausea, vomiting, fever, chills, blurry vision, double vision, loss of vision, chest pain, difficulty breathing, shortness of breath, back pain, night sweats, pain with urination, increased urinary frequency, increased urinary urgency, blood in his urine or stool, syncope or a near syncopal episode, recent trauma or falls, bowel incontinence, bladder incontinence, or any other complaints at this time. Relieving factors: none Exacerbating factors: none Associated symptoms: denies other symptoms Treatments prior to arrival: none Related Data Previous Rx's ?Medication ?Instructions ?Recorded aripiprazole 10 mg tablet (Abilify) 10 mg PO DAILY PRN breakthrough 02/16/24 symptoms 7 days #7 tabs aripiprazole 400 mg suspension, 400 mg IM Q28D 24 days #1 ea 02/16/24 extended rel.intramuscular syringe (Abilify Maintena) Allergies Allergy/AdvReac Type Severity Reaction Status Date / Time No Known Allergies Allergy Verified 08/11/24 11:04 Review of Systems 2 Constitutional: Constitutional: Reports no additional constitutional complaints, Denies chills, Denies fever(s) and Denies night sweats Eyes: Eyes: Reports no additional eye complaints, Denies blurry vision, Denies change in vision, Denies diplopia, Denies eye discharge, Denies loss of vision and Denies eye pain ENT: Denies dizziness Cardiovascular: Cardiovascular: Reports no additional cardiovascular complaints, Denies chest pain, Denies lightheadedness, Denies Loss of Consciousness and Denies dyspnea Respiratory: Respiratory: Reports no additional respiratory complaints and Denies dyspnea Gastrointestinal: Gastrointestinal: Reports no additional gastrointestinal complaints, Denies abdominal pain, Denies melena, Denies hematochezia, Denies change in bowel habits and Denies change in stool character Genitourinary: Genitourinary: Reports no additional male genitourinary complaints, Denies hematuria, Denies oliguria, Denies difficulty urinating, Denies dysuria, Denies urinary frequency, Denies urinary hesitancy, Denies urinary incontinence and Denies urinary urgency Musculoskeletal: Musculoskeletal: Reports no additional musculoskeletal complaints, Denies numbness and Denies tingling Neurologic: Denies dizziness, Denies loss of vision, Denies numbness and Denies tingling Psychiatric: Psychiatric: Denies homicidal ideation and Reports suicidal ideation Endocrine: Endocrine: Reports no additional endocrine complaints Hematologic/Lymphatic: Hematologic/Lymphatic: Reports no additional hematologic/lymphatic complaints Allergic/Immunologic: Allergic/Immunologic: Reports no additional allergic/immunologic complaints PMFSH Past Medical History Attestation statement: The following information was validated with the patient. Source: old records reviewed and nursing notes reviewed Medical History Schizoaffective disorder, bipolar type Social History Social History Household Members: None Housing: Apartment Do you presently have visiting nurse or other home services: No Alcohol intake: former Patient Tobacco Use Status: Never used Tobacco Use of substances other than those prescribed or required for medical reasons: No Advance Directives: No Advance Directives Information Provided: Yes Nutrition Risks: No Nutritional Risk service: No Sexual orientation: Don't Know Physical Exam ED Vital Signs: Vital Signs - 24 hr 08/11/24 11:02 Temperature 98.1 F Pulse Rate 102 H Respiratory Rate 18 Blood Pressure 136/91 H Pulse Oximetry 95 Oxygen Delivery Method Room Air BMI result Body Mass Index 34.0 Const General: cooperative, no acute distress, alert and awake Nutritional Appearance: well nourished Orientation/consciousness: patient oriented x3 Limitations: no limitations HENMT Head: Yes normal to inspection and Yes atraumatic Ears: hearing grossly normal bilaterally and external ears normal General nose exam: Normal external nose present, no nasal discharge noted and no epistaxis Face and sinus: Yes normal facial exam, No abrasion and No laceration Mouth: Normal oral and palatal mucosa present, no drooling and no muffled voice Eyes General: appearance normal, both eyes and all related structures Periorbital: periorbital findings normal Eyelids: Yes eyelids normal Conjunctivae: conjunctivae normal Pupils: Equal, round and reactive pupils present EOM: EOMs intact bilaterally Neck Neck: Yes normal visual inspection, Yes full ROM and Yes no lymphadenopathy Chest Chest palpation & inspection: normal inspection of the chest Resp Effort & Inspection: normal respiratory effort and able to speak in complete sentences GI Inspection: Yes normal to inspection Neuro General: patient oriented x3, moves all extremities and CN's II-XI intact bilaterally Cranial nerves: Yes Equal, round and reactive pupils present Cognition (Neuro): normal cognition Extrem General: Yes normal to inspection, Yes full ROM and Yes capillary refill normal Psych Appearance: grossly normal Mental Status: mental status grossly normal Affect: Sad affect present Attitude: Guarded attititude/behavior present Thought process: Illogical thought process present Thought content: Suicidality present Insight: Poor insight present (Psych) Course Course Course Narrative: RME performed by Linda Easley PA-C. Patient is a 39 year old assigned male at presenting to the emergency department with thoughts of hurting himself. Patient is requesting to see a doctor for assisted suicide. Detailed physical exam and review of systems are deferred to the coremaker apprentice. Labs ordered. porcelain enamel repairer aware. Patient brought back. Medical Decision Making Medical Decision Making MDM Narrative: Patient is a 39 year old assigned male at with a history of schizoaffective disorder and depression presenting to the emergency department today with suicidal ideation. Patient's physical exam was as noted in the physical exam portion of this note. Patient's blood work was unremarkable. Patient's urine showed no acute process. Patient's EKG was unremarkable. Patient was seen by the CARE team who recommended inpatient level of psychiatric care. I explained my physical exam findings as well as all test results to the patient. I answered all questions asked by the patient. Patient admitted to the psychiatric inpatient service. Differential Diagnosis Differential Diagnoses: The differential diagnosis associated with the presentation includes Suicidal ideation Depression Admission/Observation Consideration of admission/observation: Escalation of care including admission/observation considered Admitted to the psychiatric service. Consult Healthcare Provider Management of the patient was discussed with: Behavioral Health Provider (spoke with the CARE team as noted in the MDM Rationale portion of this note.) Lab Data [facility] Lab Attestation statement: I reviewed the patient's lab results. My interpretation of these results are in the MDM Rationale portion of this note. 08/11/24 12:01 08/11/24 12:01 Labs: Lab Results 08/11/24 Range/Units 12:01 WBC 7.8 (4.8-10.8) X10*3/uL RBC 5.36 (4.60-5.80) X10*6/uL Hgb 15.6 (14.0-18.0) g/dl Hct 45.1 (42.0-52.0) % MCV 84.1 (80.0-98.0) fL MCH 29.1 (27.0-33.0) pg MCHC 34.6 (31.0-36.0) g/dl RDW 12.4 (11.0-16.0) % Plt Count 312 (160-400) X10*3/uL MPV 8.4 L (9.4-12.4) fL Immature Gran % (Auto) 0.1 (0.0-0.4) % Neut % (Auto) 64.8 (45-73) % Lymph % (Auto) 26.3 (20-40) % [place] % (Auto) 6.8 (2-11) % Eos % (Auto) 1.5 (0-4) % Baso % (Auto) 0.5 (0-2) % Lymph # (Auto) 2.1 (1.2-4.9) X10*3/uL [place] # (Auto) 0.5 (0.1-1.2) X10*3/uL Eos # (Auto) 0.1 (0.0-0.4) X10*3/uL Baso # (Auto) 0.0 (0.0-0.2) X10*3/uL Abs Immat Gran (auto) 0.01 (0.00-0.03) X10*3/uL Absolute Neuts (auto) 5.1 (2.0-8.3) x10*3/uL Absolute Nucleated RBC 0.000 (0.0-0.012) X10*3/uL Nucleated RBC % (auto) 0.0 (0.0-0.2) /100WBC Sodium 139 (135-145) mmol/L Potassium 3.9 (3.3-5.1) mmol/L Chloride 104 (96-108) mmol/L Carbon Dioxide 25 (22-29) mmol/L Anion Gap 14 (12-20) BUN 14 (9-16) mg/dL Creatinine 1.08 (0.5-1.4) mg/dL Estim Creat Clear Calc 112.6 Estimated GFR > 60 Random Glucose 95 (60-115) mg/dL Calcium 9.7 (8.4-10.2) mg/dL Total Bilirubin 0.4 (0.0-1.0) mg/dL AST 44 H (5-37) U/L ALT 61 H (0-40) U/L Alkaline Phosphatase 79 (39-117) U/L Total Protein 7.7 (6.5-8.0) g/dL Albumin 4.5 (3.5-5.0) g/dL Urine Color Yellow Urine Appearance Clear Urine pH 8.0 (5.0-9.0) Ur Specific [place] 1.020 (1.005-1.025) Urine Protein 30 (1+) H (Neg-Trace) mg/dL Urine Glucose (UA) Negative (Negative) mg/dL Urine Ketones Negative (Negative) mg/dL Urine Blood Negative (Negative) Urine Nitrite Negative (Negative) Ur Leukocyte Esterase Negative (Negative) Urine RBC 0-2 (0-2) /HPF Urine WBC 0-5 (0-5) /HPF Ur Squamous Epith Cells 0-2 (0-2) /HPF Urine Bacteria None Seen (None Seen) Hyaline Casts 0-2 (0-2) /LPF Salicylates < 5.0 L (15-30) mg/dL Urine Opiates Screen Not Detected (Not Detect) Ur Buprenorphine Scrn Not Detected (Not Detect) ng/mL Ur Oxycodone Screen Not Detected (Not Detect) ng/mL Urine Methadone Screen Not Detected (Not Detect) ng/mL Urine Fentanyl Screen Not Detected (Not Detect) Acetaminophen < 3 (<30) mcg/mL Ur Barbiturates Screen Not Detected (Not Detect) Ur Phencyclidine Scrn Not Detected (Not Detect) Ur Amphetamines Screen Not Detected (Not Detect) U Benzodiazepines Scrn Not Detected (Not Detect) Urine Cocaine Screen Not Detected (Not Detect) U Marijuana (THC) Screen Not Detected (Not Detect) Ethyl Alcohol < 10 mg/dL COVID-19 (MARIMAR) Negative (Negative) COVID-19 Clin Com See Note Independent Interpretation I performed an independent interpretation of an: EKG Interpretation: I independently interpreted this EKG and am in agreement with the below findings: Vent. Rate: 108 BPM Atrial Rate: 108 BPM P-R Int: 158 ms QRS Dur: 96 ms QT Int: 332 ms P-R-T Axes: 39 19 36 degrees QTcB Int: 444 ms Sinus tachycardia When compared with ECG of 18-Feb-2024 10:24, Vent. rate has increased by 46 bpm DD/ 1500 Critical Care Time Critical Care Time Critical Care Time: Yes Total Critical Care Time: 32 Attestation: I spent 32 minutes of Critical Care Time with this patient. This does not include time spent on separately reported billable procedures. Discharge Plan Discharge Clinical Impression: Suicidal ideation Patient Disposition: Admitted As Inpatient Interventions: [place]-Suicide Risk Severity Scale Last Done: 08/11/24 11:05 Admission Worksheet (ED) Last Done: 08/11/24 16:17 Discharge Date/Time: 08/11/24 16:18
[2024-08-11 11:02] VITALS: BP 136/91; PULSE 102; RESP 18; TEMP 36.7; O2SAT 95; BMI 34.0
--- NOTE | 2024-08-11 11:13 | PC.NURSE ---
walked to family room for changeover.
--- NOTE | 2024-08-11 11:33 | MHC.EDTECH ---
Patient changed over following new procedures with foreign exchange dealer team . Belongings list provided to this tech by MICHAEL electroencephalographic technician. This tech entered items into system and printed record. Large amount of fuentes written down on list $398 - per tech money counted with security present and all items located in [facility] port shelf 1
[2024-08-11 12:30] LABS: MANUAL DIFF FLAG NO
[2024-08-11 12:32] LABS: Basophils Percent Auto 0.5 % (0-2); Eosinophils Absolute Auto 0.1 X10*3/uL (0.0-0.4); Eosinophils Percent Auto 1.5 % (0-4); Hematocrit 45.1 % (42.0-52.0); Hemoglobin 15.6 g/dl (14.0-18.0); Imm Gran Abs Auto 0.01 X10*3/uL (0.00-0.03); Imm Gran Pct Auto 0.1 % (0.0-0.4); Lymphocytes Absolute Auto 2.1 X10*3/uL (1.2-4.9); Lymphocytes Percent Auto 26.3 % (20-40); Mean Corpuscular HGB Conc 34.6 g/dl (31.0-36.0); Mean Corpuscular Hemoglobin 29.1 pg (27.0-33.0); Mean Corpuscular Volume 84.1 fL (80.0-98.0); Mean Platelet Volume 8.4 fL (9.4-12.4); Monocytes Absolute Auto 0.5 X10*3/uL (0.1-1.2); Monocytes Percent Auto 6.8 % (2-11); Neutrophils Absolute Auto 5.1 x10*3/uL (2.0-8.3); Neutrophils Percent Auto 64.8 % (45-73); Platelet Count 312 X10*3/uL (160-400); Red Blood Count 5.36 X10*6/uL (4.60-5.80); Red Cell Distribution Width 12.4 % (11.0-16.0); White Blood Count 7.8 X10*3/uL (4.8-10.8)
--- NOTE | 2024-08-11 12:46 | PC.NURSE ---
Pt arrived from triage for SI- requesting physician assisted suicide. A/ox3, calm/cooperative with staff, follows commands/directions appropriately, respirations even and unlabored, no increased wob/sob noted. Pt up pacing in room- steady gait. Offered beverages/snacks. Denies HI/AH/VH. Care team at bedside for assessment. All needs met at this time.
[2024-08-11 12:48] LABS: COVID-19 Test Negative (Negative); IDNOW Serial# 58CA691E
[2024-08-11 12:55] LABS: Acetaminophen LAB < 3 mcg/mL (<30); Alanine Aminotransferase 61 U/L (0-40); Albumin Level 4.5 g/dL (3.5-5.0); Alkaline Phosphatase 79 U/L (39-117); Amphetamine Screen Urine Not Detected (Not Detect); Anion Gap 14 (12-20); Aspartate Amino Transferase 44 U/L (5-37); Barbiturates, Urine Not Detected (Not Detect); Benzodiazepines Screen Urine Not Detected (Not Detect); Bilirubin Total 0.4 mg/dL (0.0-1.0); Blood Urea Nitrogen 14 mg/dL (9-16); Buprenorphine Scr Not Detected (Not Detect); Calcium 9.7 mg/dL (8.4-10.2); Cannabinoid Screen Urine Not Detected (Not Detect); Carbon Dioxide 25 mmol/L (22-29); Chloride 104 mmol/L (96-108); Cocaine Screen Urine Not Detected (Not Detect); Creatinine Clr Calc Pharmacy 112.6; Estimated Glomerular Filt Rate > 60; Ethanol < 10 mg/dL; Fentanyl, urine Not Detected (Not Detect); Glucose Random 95 mg/dL (60-115); Methadone Screen, Urine Not Detected (Not Detect); Opiate Screen Urine Not Detected (Not Detect); Oxycodone Screen Urine Not Detected (Not Detect); Phencyclidine Screen Urine Not Detected (Not Detect); Potassium 3.9 mmol/L (3.3-5.1); Salicylate < 5.0 mg/dL (15-30); Sodium 139 mmol/L (135-145); Total Protein 7.7 g/dL (6.5-8.0)
--- NOTE | 2024-08-11 13:50 | ECG_ITS ---
Test Reason : r/o prolonge qt Blood Pressure : */* mmHG Vent. Rate : 108 BPM Atrial Rate : 108 BPM P-R Int : 158 ms QRS Dur : 96 ms QT Int : 332 ms P-R-T Axes : 39 19 36 degrees QTcB Int : 444 ms Sinus tachycardia Otherwise normal ECG When compared with ECG of 18-Feb-2024 10:24, Vent. rate has increased by 46 bpm Referred By: Linda Easley Electronically Signed By: AILEEN PAREDES
[2024-08-11 14:02] LABS: Appearance Urine Clear; Color Urine Yellow; Glucose Urine UA Negative (Negative); Leukocyte Esterase Urine Negative (Negative); Nitrite Urine Negative (Negative); UMIC TRIGGER UA YES; Urine Blood Negative (Negative); Urine Ketones Negative (Negative); Urine Protein 30 (1+) mg/dL (Neg-Trace)
[2024-08-11 14:09] LABS: Bacteria Urine None Seen (None Seen); Hyaline Casts Urine 0-2 /LPF (0-2); RBC Urine 0-2 /HPF (0-2); Squamous Epithelial Cell Urine 0-2 /HPF (0-2); WBC Urine 0-5 /HPF (0-5)
[2024-08-11 16:15] VITALS: BP 133/88; PULSE 95; RESP 16; TEMP 36.9; O2SAT 98
[2024-08-11 17:09] VITALS: BMI 33.4
--- NOTE | 2024-08-11 17:17 | PC.ADMIT ---
Juan arrived to the unit at 1615 via wheelchair. Pt has a signed and accepted CV and then entered a 3-day notice. VSS obtained and wnl, pt oriented to the unit and all paperwork completed. Pt was cooperative with admission process. Pts affect is flat, guarded, with poor eye contact. Pt kept asking when he would see the suicide doctor . Crisis eval reports pt self presented to the ED requesting assisted suicide at the hospital . When pt was picked up from the POD he asked, Do I see the suicide doctor now ? Pt states boredom is the reason for requesting physician assisted suicide and was surprised that this was not an option and replied, but I saw it on the news . Pt would answer questions but difficult to engage. Tox screen negetive, non-smoker, and declined flu shot. Pt is on 15min checks for safety.
[2024-08-11 20:00] VITALS: BP 125/74; PULSE 123; RESP 16; TEMP 36.8; O2SAT 97
[2024-08-11 20:21] LABS: Alanine Aminotransferase 58 U/L (0-40); Albumin Level 4.5 g/dL (3.5-5.0); Alkaline Phosphatase 80 U/L (39-117); Anion Gap 13 (12-20); Aspartate Amino Transferase 44 U/L (5-37); Bilirubin Total 0.4 mg/dL (0.0-1.0); Blood Urea Nitrogen 15 mg/dL (9-16); Calcium 9.6 mg/dL (8.4-10.2); Carbon Dioxide 24 mmol/L (22-29); Chloride 104 mmol/L (96-108); Estimated Glomerular Filt Rate > 60; Glucose Random 125 mg/dL (60-115); Potassium 3.8 mmol/L (3.3-5.1); Sodium 137 mmol/L (135-145); Total Protein 7.5 g/dL (6.5-8.0)
[2024-08-12 07:53] VITALS: BP 132/79; PULSE 103; RESP 18; TEMP 36.4; O2SAT 96
--- NOTE | 2024-08-12 11:50 | HO.PSYADMNOT ---
HPI Date of Service: 08/12/24 Chief Complaint: depression/SI Sources of Information: patient interviewed, chart reviewed and crisis/core team assessment reviewed HPI Subjective Notes: Kwon Warning, Conditional Voluntary and 3 Day Narrative: Patient is a 39-year-old male with history of schizoaffective disorder bipolar type, who presents for depressive episode and suicidal thinking. Patient reports that who was overall doing okay since last winter but at some point started getting depressed. Initially he said it was just for a few days but then said it has been for a few weeks; he has no idea why or what the trigger was and has remained on his medication, getting Abilify Maintenna 400mg on 07/25/24. Patient says that over the last week he started having suicidal thoughts and wanted to come to the hospital to participate in physician assisted suicide. He told this to his out patient bilingual patient support caseworker who took him to the hospital. Patient said he was a little surprised that he came to the unit thinking that he would be already via physician assisted suicide and is currently disappointed about this. He says he would never actually go out and hurt himself however. Patient is amenable to trying Wellbutrin which he said he was on in the past though his memory of its affect seems cloudy. Also discussed lithium however he is not interested in that right now. Patient denies any recent manic episodes or manic type behaviors; his report of insomnia for the past week seems due to depression. Patient denies any AVH; denies any drug or alcohol use. pt seen at 1:30pm on 08/12/24 Past Psychiatric History: Past hospitalizations; last admission February 2024 Abilify Maintena 400 mg Q monthly which he said he has been on for years one near attempt at 18yo, planning to jump off bridge Med trials: lithium; a long time ago, helped mood wellbutrin: maybe helpful, maybe a numbing effect? Vraylar: nausea? ECT in past Medical Evaluation Reviewed: Yes [facility] Medical History Schizoaffective disorder, bipolar type Family History: Defer Social History: Lives on his own Substance History: Denies Trauma History: Defer Diagnostics Vital Signs (24Hr): Vital Signs - 24 hr 08/11/24 16:15 08/11/24 20:00 08/12/24 07:53 Temperature 98.5 F 98.2 F 97.5 F Pulse Rate 95 123 H 103 H Respiratory Rate 16 16 18 Blood Pressure 133/88 125/74 132/79 Pulse Oximetry 98 97 96 Oxygen Delivery Method Room Air Room Air Room Air BMI result Body Mass Index 33.4 Labs 08/11/24 12:01 08/11/24 19:52 Labs: Laboratory Results - last 48 hr 08/11/24 08/11/24 12:01 19:52 WBC 7.8 RBC 5.36 Hgb 15.6 Hct 45.1 MCV 84.1 MCH 29.1 MCHC 34.6 RDW 12.4 Plt Count 312 MPV 8.4 L Immature Gran % (Auto) 0.1 Neut % (Auto) 64.8 Lymph % (Auto) 26.3 [place] % (Auto) 6.8 Eos % (Auto) 1.5 Baso % (Auto) 0.5 Lymph # (Auto) 2.1 [place] # (Auto) 0.5 Eos # (Auto) 0.1 Baso # (Auto) 0.0 Abs Immat Gran (auto) 0.01 Absolute Neuts (auto) 5.1 Absolute Nucleated RBC 0.000 Nucleated RBC % (auto) 0.0 Sodium 139 137 Potassium 3.9 3.8 Chloride 104 104 Carbon Dioxide 25 24 Anion Gap 14 13 BUN 14 15 Creatinine 1.08 1.16 Estim Creat Clear Calc 112.6 104.0 Estimated GFR > 60 > 60 Random Glucose 95 125 H Calcium 9.7 9.6 Total Bilirubin 0.4 0.4 AST 44 H 44 H ALT 61 H 58 H Alkaline Phosphatase 79 80 Total Protein 7.7 7.5 Albumin 4.5 4.5 Urine Color Yellow Urine Appearance Clear Urine pH 8.0 Ur Specific [place] 1.020 Urine Protein 30 (1+) H Urine Glucose (UA) Negative Urine Ketones Negative Urine Blood Negative Urine Nitrite Negative Ur Leukocyte Esterase Negative Urine RBC 0-2 Urine WBC 0-5 Ur Squamous Epith Cells 0-2 Urine Bacteria None Seen Hyaline Casts 0-2 Salicylates < 5.0 L Urine Opiates Screen Not Detected Ur Buprenorphine Scrn Not Detected Ur Oxycodone Screen Not Detected Urine Methadone Screen Not Detected Urine Fentanyl Screen Not Detected Acetaminophen < 3 Ur Barbiturates Screen Not Detected Ur Phencyclidine Scrn Not Detected Ur Amphetamines Screen Not Detected U Benzodiazepines Scrn Not Detected Urine Cocaine Screen Not Detected U Marijuana (THC) Screen Not Detected Ethyl Alcohol < 10 COVID-19 (MARIMAR) Negative COVID-19 Clin Com See Note Meds/Allergies Allergies Allergies Allergy/AdvReac Type Severity Reaction Status Date / Time No Known Allergies Allergy Verified 08/11/24 11:04 Mental Status Exam Mental Status Exam Narrative: Pt is alert and oriented; behavior is cooperative, isolative, quiet; patient is not in distress; dressed in casual attire, balding, glasses, adequate hygiene; mood is described as depressed and affect congruent, quite downcast; eye contact avoidant; Speech is slowed and soft; significant psychomotor retardation present; thought process is goal directed but also distracted and incomplete; Thought content is on physician assisted suicide; otherwise pertinent to relevant topics; no delusional content expressed; wants physician assisted suicide; no HI; Denies AVH; patient is internally preoccupied though this could be from depression. Patients insight and judgment impaired Assessment & Plan Assessment & Plan (1) Schizoaffective disorder, bipolar type: Status: Acute Code(s): F25.0 - Schizoaffective disorder, bipolar type Plan Patient is a 39-year-old male with history of schizoaffective disorder bipolar type, who presents for depressive episode and suicidal thinking. Patient reports that who was overall doing okay since last winter but at some point started getting depressed. Initially he said it was just for a few days but then said it has been for a few weeks; he has no idea why or what the trigger was and has remained on his medication, getting Abilify Maintenna 400mg on 07/25/24. Patient says that over the last week he started having suicidal thoughts and wanted to come to the hospital to participate in physician assisted suicide. He told this to his out patient bilingual patient support caseworker who took him to the hospital. Patient said he was a little surprised that he came to the unit thinking that he would be already via physician assisted suicide and is currently disappointed about this. He says he would never actually go out and hurt himself however. Patient is amenable to trying Wellbutrin which he said he was on in the past though his memory of its affect seems cloudy. Also discussed lithium however he is not interested in that right now. Patient denies any recent manic episodes or manic type behaviors; his report of insomnia for the past week seems due to depression. Patient denies any AVH; denies any drug or alcohol use. Formulation/clinical reasoning: Patient presents with significant depressive episode and wanting physician assisted suicide. He denies he would ever attempt suicide himself and has had only 1 near attempt over 20 years ago. Discussed medications including Wellbutrin, lithium as well as ECT; patient willing to try Wellbutrin Plan: CV; patient later signed 3 day notice Patient received Abilify Maintena 400 mg on 07/25/24 Start Wellbutrin XL 150 mg Gather collateral Patient educated on: diagnosis and medication risk/benefits Informed Consent: understands, does not understand and further education needed Reason for continued inpatient stay Substantial Risk for: inability to function and rapid decompensation Statement Statement: I have reviewed the history and physical and performed a pertinent examination on my patient. No changes have occurred unless specified. If the History and Physical was not performed prior to admission, the Hospitalist's service will be consulted for completing the admission physical. Time Spent With Patient Time: Total time managing care of this patient today ____ minutes.
[2024-08-12] MEDS: buPROPion HCl XL 150 MG TAB.ER.24H PO (14:02)
[2024-08-12 20:00] VITALS: RESP 16; TEMP 36.9; O2SAT 98
[2024-08-13 07:58] VITALS: BP 122/79; PULSE 84; RESP 18; TEMP 37.1; O2SAT 96
[2024-08-13] MEDS: buPROPion HCl XL 150 MG TAB.ER.24H PO (08:03)
--- NOTE | 2024-08-13 13:24 | HO.PSYCHPN ---
Subjective Subjective Date of Service: 08/13/24 Reason For Visit: depression/SI Interim History: Met with patient; discussed with team Though he remains quite downcast, he is out in the milieu. Patient says he remains depressed but is feeling a little better. SI remains however he says it is not as much and right now he is not thinking of physician inventory control assistant suicide. Patient tolerating Wellbutrin and agrees to increase dose Mental Status Exam Mental Status Exam Narrative: Pt is alert and oriented; behavior is cooperative, isolative, quiet; patient is not in distress; dressed in casual attire, balding, glasses, adequate hygiene; mood is described as little better though affect remains downcast; eye contact avoidant; Speech remains slowed and soft; psychomotor retardation present; thought process is goal directed; more linear; Thought content is still with depression; still with SI but less; otherwise pertinent to relevant topics; no delusional content expressed; still with SI but less; no HI; Denies AVH; patient is internally preoccupied though this could be from depression. Patients insight and judgment impaired Diagnostics Vital Signs (24Hr): Vital Signs - 24 hr 08/12/24 20:00 08/13/24 07:58 Temperature 98.4 F 98.7 F Pulse Rate 84 Respiratory Rate 16 18 Blood Pressure 122/79 Pulse Oximetry 98 96 Oxygen Delivery Method Room Air Room Air BMI result Body Mass Index 33.4 Labs 08/11/24 12:01 08/11/24 19:52 Labs: Laboratory Results - last 48 hr 08/11/24 08/11/24 12:01 19:52 Sodium 137 Potassium 3.8 Chloride 104 Carbon Dioxide 24 Anion Gap 13 BUN 15 Creatinine 1.16 Estim Creat Clear Calc 104.0 Estimated GFR > 60 Random Glucose 125 H Calcium 9.6 Total Bilirubin 0.4 AST 44 H ALT 58 H Alkaline Phosphatase 80 Total Protein 7.5 Albumin 4.5 Urine Color Yellow Urine Appearance Clear Urine pH 8.0 Ur Specific [place] 1.020 Urine Protein 30 (1+) H Urine Glucose (UA) Negative Urine Ketones Negative Urine Blood Negative Urine Nitrite Negative Ur Leukocyte Esterase Negative Urine RBC 0-2 Urine WBC 0-5 Ur Squamous Epith Cells 0-2 Urine Bacteria None Seen Hyaline Casts 0-2 Medications Medications Current Medications Acetaminophen (Acetaminophen 325 Mg Tablet) 650 mg PO Q6H PRN PRN Reason: Headache/Pain, Scale 1-10 Al Hydroxide/Mg Hydroxide (Magnesium Hydrox/Alum Hydrox 30 Ml Oral.Susp) 30 ml PO Q6H PRN PRN Reason: Heartburn/Nausea Aripiprazole (Aripiprazole 10 Mg Tablet) 10 mg PO DAILY PRN PRN Reason: breakthrough symptoms Aripiprazole (Aripiprazole Er 400 Mg Suser.Syr) 400 mg IM Q28D [facility] Last Admin: 08/11/24 20:49 Dose: Not Given Bupropion HCl (Bupropion Hcl Xl 300 Mg Tab.Er.24h) 300 mg PO DAILY [facility] Hydroxyzine HCl (Hydroxyzine Hcl 25 Mg Tablet) 25 mg PO Q6H PRN PRN Reason: mild anxiety Magnesium Hydroxide (Milk Of Magnesia 30 Ml Oral.Susp) 30 ml PO DAILY PRN PRN Reason: Constipation Nicotine (Nicotine 21 Mg Patch.Td24) 21 mg TRANSDERMA DAILY PRN PRN Reason: smoking cessation Nicotine Polacrilex (Nicotine Polacrilex 2 Mg Gum) 4 mg BUCCAL Q2H PRN PRN Reason: Nicotine Cravings Trazodone HCl (Trazodone Hcl 50 Mg Tablet) 50 mg PO BEDTIME MRX1 PRN PRN Reason: Insomnia Allergies Allergies Allergy/AdvReac Type Severity Reaction Status Date / Time No Known Allergies Allergy Verified 08/11/24 11:04 Assessment & Plan Assessment & Plan (1) Schizoaffective disorder, bipolar type: Status: Acute Code(s): F25.0 - Schizoaffective disorder, bipolar type Plan Patient is a 39-year-old male with history of schizoaffective disorder bipolar type, who presents for depressive episode and suicidal thinking. Patient reports that who was overall doing okay since last winter but at some point started getting depressed. Initially he said it was just for a few days but then said it has been for a few weeks; he has no idea why or what the trigger was and has remained on his medication, getting Abilify Maintenna 400mg on 07/25/24. Patient says that over the last week he started having suicidal thoughts and wanted to come to the hospital to participate in physician assisted suicide. He told this to his out patient human services case manager who took him to the hospital. Patient said he was a little surprised that he came to the unit thinking that he would be already via physician assisted suicide and is currently disappointed about this. He says he would never actually go out and hurt himself however. Patient is amenable to trying Wellbutrin which he said he was on in the past though his memory of its affect seems cloudy. Also discussed lithium however he is not interested in that right now. Patient denies any recent manic episodes or manic type behaviors; his report of insomnia for the past week seems due to depression. Patient denies any AVH; denies any drug or alcohol use. Formulation/clinical reasoning: Patient presents with significant depressive episode and wanting physician assisted suicide. He denies he would ever attempt suicide himself and has had only 1 near attempt over 20 years ago. Discussed medications including Wellbutrin, lithium as well as ECT; patient willing to try Wellbutrin Hospital course: 08/13 Though he remains quite downcast, he is out in the milieu. Patient says he remains depressed but is feeling a little better. SI remains however he says it is not as much and right now he is not thinking of physician inventory control assistant suicide. Patient tolerating Wellbutrin and agrees to increase dose Plan: CV; patient later signed 3 day notice Patient received Abilify Maintena 400 mg on 07/25/24 Increase to Wellbutrin XL 300 mg Gather collateral Patient educated on: diagnosis and medication risk/benefits Informed Consent: understands and further education needed Reason for continued inpatient stay Substantial Risk for: rapid decompensation Time Spent With Patient Time: Total time managing care of this patient today ____ minutes.
[2024-08-13 19:49] VITALS: BP 151/87; PULSE 101; RESP 15; TEMP 36.6; O2SAT 96
[2024-08-14 07:53] VITALS: BP 135/61; PULSE 81; RESP 18; TEMP 36.9; O2SAT 96
[2024-08-14] MEDS: buPROPion HCl XL 300 MG TAB.ER.24H PO (08:12)
--- NOTE | 2024-08-14 12:04 | HO.PSYCHPN ---
Subjective Subjective Date of Service: 08/14/24 Reason For Visit: depression/SI Interim History: Met with patient; discussed with team Patient reports he is feeling a little better, at least better than yesterday and says depression seems to be lessening; no SI. Patient tolerated Wellbutrin.. Patient denies any AVH as well. Given that this improvement is still very new, he is willing to and did retract his 3 day notice to make sure continues to progress. Mental Status Exam Mental Status Exam Narrative: Pt is alert and oriented; behavior is cooperative, isolative, quiet; patient is not in distress; dressed in casual attire, balding, glasses, adequate hygiene; mood is described as better than yesterday affect remains downcast but less so; eye contact avoidant; Speech still somewhat slowed and soft but less; less psychomotor retardation; thought process is goal directed; more linear; Thought content is still with depression but more hopeful; otherwise pertinent to relevant topics; no delusional content expressed; no SI; no HI; Denies AVH; does not seem particularly internally preoccupied. Patients insight and judgment impaired but improving Diagnostics Vital Signs (24Hr): Vital Signs - 24 hr 08/13/24 19:49 08/14/24 07:53 Temperature 98 F 98.4 F Pulse Rate 101 H 81 Respiratory Rate 15 18 Blood Pressure 151/87 H 135/61 Pulse Oximetry 96 96 Oxygen Delivery Method Room Air BMI result Body Mass Index 33.4 Labs 08/11/24 12:01 08/11/24 19:52 Medications Medications Current Medications Acetaminophen (Acetaminophen 325 Mg Tablet) 650 mg PO Q6H PRN PRN Reason: Headache/Pain, Scale 1-10 Al Hydroxide/Mg Hydroxide (Magnesium Hydrox/Alum Hydrox 30 Ml Oral.Susp) 30 ml PO Q6H PRN PRN Reason: Heartburn/Nausea Aripiprazole (Aripiprazole 10 Mg Tablet) 10 mg PO DAILY PRN PRN Reason: breakthrough symptoms Aripiprazole (Aripiprazole Er 400 Mg Suser.Syr) 400 mg IM Q28D [facility] Last Admin: 08/11/24 20:49 Dose: Not Given Bupropion HCl (Bupropion Hcl Xl 300 Mg Tab.Er.24h) 300 mg PO DAILY [facility] Last Admin: 08/14/24 08:12 Dose: 300 mg Hydroxyzine HCl (Hydroxyzine Hcl 25 Mg Tablet) 25 mg PO Q6H PRN PRN Reason: mild anxiety Magnesium Hydroxide (Milk Of Magnesia 30 Ml Oral.Susp) 30 ml PO DAILY PRN PRN Reason: Constipation Nicotine (Nicotine 21 Mg Patch.Td24) 21 mg TRANSDERMA DAILY PRN PRN Reason: smoking cessation Nicotine Polacrilex (Nicotine Polacrilex 2 Mg Gum) 4 mg BUCCAL Q2H PRN PRN Reason: Nicotine Cravings Trazodone HCl (Trazodone Hcl 50 Mg Tablet) 50 mg PO BEDTIME MRX1 PRN PRN Reason: Insomnia Allergies Allergies Allergy/AdvReac Type Severity Reaction Status Date / Time No Known Allergies Allergy Verified 08/11/24 11:04 Assessment & Plan Assessment & Plan (1) Schizoaffective disorder, bipolar type: Status: Acute Code(s): F25.0 - Schizoaffective disorder, bipolar type Plan HPI Patient is a 39-year-old male with history of schizoaffective disorder bipolar type, who presents for depressive episode and suicidal thinking. Patient reports that who was overall doing okay since last winter but at some point started getting depressed. Initially he said it was just for a few days but then said it has been for a few weeks; he has no idea why or what the trigger was and has remained on his medication, getting Abilify Maintenna 400mg on 07/25/24. Patient says that over the last week he started having suicidal thoughts and wanted to come to the hospital to participate in physician assisted suicide. He told this to his out patient window caser who took him to the hospital. Patient said he was a little surprised that he came to the unit thinking that he would be already via physician assisted suicide and is currently disappointed about this. He says he would never actually go out and hurt himself however. Patient is amenable to trying Wellbutrin which he said he was on in the past though his memory of its affect seems cloudy. Also discussed lithium however he is not interested in that right now. Patient denies any recent manic episodes or manic type behaviors; his report of insomnia for the past week seems due to depression. Patient denies any AVH; denies any drug or alcohol use. Formulation/clinical reasoning: Patient presents with significant depressive episode and wanting physician assisted suicide. He denies he would ever attempt suicide himself and has had only 1 near attempt over 20 years ago. Discussed medications including Wellbutrin, lithium as well as ECT; patient willing to try Wellbutrin Hospital course: 08/13 Though he remains quite downcast, he is out in the milieu. Patient says he remains depressed but is feeling a little better. SI remains however he says it is not as much and right now he is not thinking of physician sales service assistant suicide. Patient tolerating Wellbutrin and agrees to increase dose 08/14 Patient reports he is feeling a little better, at least better than yesterday and says depression seems to be lessening; no SI. Patient tolerated Wellbutrin.. Patient denies any AVH as well. Given that this improvement is still very new, he is willing to and did retract his 3 day notice to make sure continues to progress. -social work talked with patient's father who recommended a assisted; will discuss with patient further Plan: CV; patient later signed 3 day notice Patient received Abilify Maintena 400 mg on 07/25/24 Continue Wellbutrin XL 300 mg Gather collateral Patient educated on: diagnosis and medication risk/benefits Informed Consent: understands and further education needed Reason for continued inpatient stay Substantial Risk for: rapid decompensation Time Spent With Patient Time: Total time managing care of this patient today ____ minutes.
[2024-08-14] MEDS: hydrOXYzine HCL 25 MG TABLET PO ×2 (12:34→19:58)
[2024-08-14 20:00] VITALS: BP 130/86; PULSE 92; TEMP 36.4; O2SAT 96
[2024-08-15 08:00] VITALS: BP 124/73; PULSE 90; RESP 16; TEMP 36.4; O2SAT 96
[2024-08-15] MEDS: buPROPion HCl XL 300 MG TAB.ER.24H PO (08:05)
--- NOTE | 2024-08-15 09:36 | HO.PSYCHPN ---
Subjective Subjective Date of Service: 08/15/24 Reason For Visit: depression/SI Interim History: met with patient; discussed with team Patient reports that he remains better and denies any SI at all. However he still has downcast affect and mostly keeps to himself. Need more collateral regarding baseline and social work reaching out to outpatient team Mental Status Exam Mental Status Exam Narrative: Pt is alert and oriented; behavior is cooperative, isolative, quiet; patient is not in distress; dressed in casual attire, balding, glasses, adequate hygiene; mood is described as better affect remains downcast; eye contact avoidant; Speech still somewhat slowed and soft but less; less psychomotor retardation; thought process is goal directed; more linear; Thought content is still with depression but more hopeful; otherwise pertinent to relevant topics; no delusional content expressed; no SI; no HI; Denies AVH; does not seem particularly internally preoccupied. Patients insight and judgment impaired but improved; baseline? Diagnostics Vital Signs (24Hr): Vital Signs - 24 hr 08/14/24 20:00 08/15/24 08:00 Temperature 97.6 F 97.5 F Pulse Rate 92 90 Respiratory Rate 16 Blood Pressure 130/86 124/73 Pulse Oximetry 96 96 Oxygen Delivery Method Room Air Room Air BMI result Body Mass Index 33.4 Labs 08/11/24 12:01 08/11/24 19:52 Medications Medications Current Medications Acetaminophen (Acetaminophen 325 Mg Tablet) 650 mg PO Q6H PRN PRN Reason: Headache/Pain, Scale 1-10 Al Hydroxide/Mg Hydroxide (Magnesium Hydrox/Alum Hydrox 30 Ml Oral.Susp) 30 ml PO Q6H PRN PRN Reason: Heartburn/Nausea Aripiprazole (Aripiprazole 10 Mg Tablet) 10 mg PO DAILY PRN PRN Reason: breakthrough symptoms Aripiprazole (Aripiprazole Er 400 Mg Suser.Syr) 400 mg IM Q28D [facility] Last Admin: 08/11/24 20:49 Dose: Not Given Bupropion HCl (Bupropion Hcl Xl 300 Mg Tab.Er.24h) 300 mg PO DAILY [facility] Last Admin: 08/15/24 08:05 Dose: 300 mg Hydroxyzine HCl (Hydroxyzine Hcl 25 Mg Tablet) 25 mg PO Q6H PRN PRN Reason: mild anxiety Last Admin: 08/14/24 19:58 Dose: 25 mg Magnesium Hydroxide (Milk Of Magnesia 30 Ml Oral.Susp) 30 ml PO DAILY PRN PRN Reason: Constipation Nicotine (Nicotine 21 Mg Patch.Td24) 21 mg TRANSDERMA DAILY PRN PRN Reason: smoking cessation Nicotine Polacrilex (Nicotine Polacrilex 2 Mg Gum) 4 mg BUCCAL Q2H PRN PRN Reason: Nicotine Cravings Trazodone HCl (Trazodone Hcl 50 Mg Tablet) 50 mg PO BEDTIME MRX1 PRN PRN Reason: Insomnia Allergies Allergies Allergy/AdvReac Type Severity Reaction Status Date / Time No Known Allergies Allergy Verified 08/11/24 11:04 Assessment & Plan Assessment & Plan (1) Schizoaffective disorder, bipolar type: Status: Acute Code(s): F25.0 - Schizoaffective disorder, bipolar type Plan HPI Patient is a 39-year-old male with history of schizoaffective disorder bipolar type, who presents for depressive episode and suicidal thinking. Patient reports that who was overall doing okay since last winter but at some point started getting depressed. Initially he said it was just for a few days but then said it has been for a few weeks; he has no idea why or what the trigger was and has remained on his medication, getting Abilify Maintenna 400mg on 07/25/24. Patient says that over the last week he started having suicidal thoughts and wanted to come to the hospital to participate in physician assisted suicide. He told this to his out patient telephonic nurse case manager who took him to the hospital. Patient said he was a little surprised that he came to the unit thinking that he would be already via physician assisted suicide and is currently disappointed about this. He says he would never actually go out and hurt himself however. Patient is amenable to trying Wellbutrin which he said he was on in the past though his memory of its affect seems cloudy. Also discussed lithium however he is not interested in that right now. Patient denies any recent manic episodes or manic type behaviors; his report of insomnia for the past week seems due to depression. Patient denies any AVH; denies any drug or alcohol use. Formulation/clinical reasoning: Patient presents with significant depressive episode and wanting physician assisted suicide. He denies he would ever attempt suicide himself and has had only 1 near attempt over 20 years ago. Discussed medications including Wellbutrin, lithium as well as ECT; patient willing to try Wellbutrin Hospital course: 08/13 Though he remains quite downcast, he is out in the milieu. Patient says he remains depressed but is feeling a little better. SI remains however he says it is not as much and right now he is not thinking of physician assistant men's lacrosse coach suicide. Patient tolerating Wellbutrin and agrees to increase dose 08/14 Patient reports he is feeling a little better, at least better than yesterday and says depression seems to be lessening; no SI. Patient tolerated Wellbutrin.. Patient denies any AVH as well. Given that this improvement is still very new, he is willing to and did retract his 3 day notice to make sure continues to progress. -social work talked with patient's father who recommended a usp; will discuss with patient further 08/15 Patient reports that he remains better and denies any SI at all. However he still has downcast affect and mostly keeps to himself. [employer] asked about patient isolating, keeping to himself and he said he has been out and about earlier in the day which is true. Need more collateral regarding baseline and social work reaching out to outpatient team -also, patient's presentation has ASD features which can be further explored Plan: CV; e Patient received Abilify Maintena 400 mg on 07/25/24 (next due 08/22/24) Continue Wellbutrin XL 300 mg Gather collateral Patient educated on: diagnosis, medication risk/benefits and therapeutic strategies Informed Consent: understands and further education needed Reason for continued inpatient stay Substantial Risk for: rapid decompensation Time Spent With Patient Time: Total time managing care of this patient today ____ minutes.
[2024-08-15 20:00] VITALS: BP 140/90; PULSE 86; TEMP 37.1; O2SAT 98
[2024-08-16] MEDS: buPROPion HCl XL 300 MG TAB.ER.24H PO (08:29)
[2024-08-16 09:09] VITALS: BP 146/85; PULSE 85; RESP 16; TEMP 36.4; O2SAT 96
[2024-08-16] MEDS: hydrOXYzine HCL 25 MG TABLET PO ×2 (12:55→20:51)
--- NOTE | 2024-08-16 14:40 | P.PNPSI_ITS ---
Subjective Subjective Date of Service: 08/16/24 Reason For Visit: depression/SI Interim History: met with patient; discussed with team says mood remains better and he feels calmer; feels Hydrozyzine helps with hs anxiety trouble sleeping and agrees to adding scheduled trazodone discussed outpt plans and pt agrees would benefit from day program Mental Status Exam Mental Status Exam Narrative: Pt is alert and oriented; behavior is cooperative, isolative, quiet; patient is not in distress; dressed in casual attire, balding, glasses, adequate hygiene; mood is described as good affect remains downcast; eye contact avoidant; Speech still somewhat slowed and soft but less; some psychomotor retardation (but may be baseline); thought process is goal directed; more linear; Thought content is on aftercare plans, bills ; otherwise pertinent to relevant topics; no delusional content expressed; no SI; no HI; Denies AVH; does not seem particularly internally preoccupied. Patients insight and judgment impaired but improved and adequate. Diagnostics Vital Signs (24Hr): Vital Signs - 24 hr 08/15/24 20:00 08/16/24 09:09 Temperature 98.7 F 97.5 F Pulse Rate 86 85 Respiratory Rate 16 Blood Pressure 140/90 H 146/85 H Pulse Oximetry 98 96 Oxygen Delivery Method Room Air Room Air BMI result Body Mass Index 33.4 Labs 08/11/24 12:01 08/11/24 19:52 Medications Medications Current Medications Acetaminophen (Acetaminophen 325 Mg Tablet) 650 mg PO Q6H PRN PRN Reason: Headache/Pain, Scale 1-10 Al Hydroxide/Mg Hydroxide (Magnesium Hydrox/Alum Hydrox 30 Ml Oral.Susp) 30 ml PO Q6H PRN PRN Reason: Heartburn/Nausea Aripiprazole (Aripiprazole 10 Mg Tablet) 10 mg PO DAILY PRN PRN Reason: breakthrough symptoms Aripiprazole (Aripiprazole Er 400 Mg Suser.Syr) 400 mg IM Q28D [facility] Last Admin: 08/11/24 20:49 Dose: Not Given Bupropion HCl (Bupropion Hcl Xl 300 Mg Tab.Er.24h) 300 mg PO DAILY [facility] Last Admin: 08/16/24 08:29 Dose: 300 mg Hydroxyzine HCl (Hydroxyzine Hcl 25 Mg Tablet) 25 mg PO Q6H PRN PRN Reason: mild anxiety Last Admin: 08/16/24 12:55 Dose: 25 mg Magnesium Hydroxide (Milk Of Magnesia 30 Ml Oral.Susp) 30 ml PO DAILY PRN PRN Reason: Constipation Nicotine (Nicotine 21 Mg Patch.Td24) 21 mg TRANSDERMA DAILY PRN PRN Reason: smoking cessation Nicotine Polacrilex (Nicotine Polacrilex 2 Mg Gum) 4 mg BUCCAL Q2H PRN PRN Reason: Nicotine Cravings Trazodone HCl (Trazodone Hcl 50 Mg Tablet) 50 mg PO BEDTIME MRX1 PRN PRN Reason: Insomnia Allergies Allergies Allergy/AdvReac Type Severity Reaction Status Date / Time No Known Allergies Allergy Verified 08/11/24 11:04 Assessment & Plan Assessment & Plan (1) Schizoaffective disorder, bipolar type: Status: Acute Code(s): F25.0 - Schizoaffective disorder, bipolar type Plan HPI Patient is a 39-year-old male with history of schizoaffective disorder bipolar type, who presents for depressive episode and suicidal thinking. Patient reports that who was overall doing okay since last winter but at some point started getting depressed. Initially he said it was just for a few days but then said it has been for a few weeks; he has no idea why or what the trigger was and has remained on his medication, getting Abilify Maintenna 400mg on 07/25/24. Patient says that over the last week he started having suicidal thoughts and wanted to come to the hospital to participate in physician assisted suicide. He told this to his out patient case briefer who took him to the hospital. Patient said he was a little surprised that he came to the unit thinking that he would be already via physician assisted suicide and is currently disappointed about this. He says he would never actually go out and hurt himself however. Patient is amenable to trying Wellbutrin which he said he was on in the past though his memory of its affect seems cloudy. Also discussed lithium however he is not interested in that right now. Patient denies any recent manic episodes or manic type behaviors; his report of insomnia for the past week seems due to depression. Patient denies any AVH; denies any drug or alcohol use. Formulation/clinical reasoning: Patient presents with significant depressive episode and wanting physician assisted suicide. He denies he would ever attempt suicide himself and has had only 1 near attempt over 20 years ago. Discussed medications including Wellbutrin, lithium as well as ECT; patient willing to try Wellbutrin Hospital course: 08/13 Though he remains quite downcast, he is out in the milieu. Patient says he remains depressed but is feeling a little better. SI remains however he says it is not as much and right now he is not thinking of physician publisher assistant suicide. Patient tolerating Wellbutrin and agrees to increase dose 08/14 Patient reports he is feeling a little better, at least better than yesterday and says depression seems to be lessening; no SI. Patient tolerated Wellbutrin.. Patient denies any AVH as well. Given that this improvement is still very new, he is willing to and did retract his 3 day notice to make sure continues to progress. -social work talked with patient's father who recommended a usp; will discuss with patient further 08/15 Patient reports that he remains better and denies any SI at all. However he still has downcast affect and mostly keeps to himself. Entrance Guard asked about patient isolating, keeping to himself and he said he has been out and about earlier in the day which is true. Need more collateral regarding baseline and social work reaching out to outpatient team -also, patient's presentation has ASD features which can be further explored 08/16 stable Plan: CV; e Patient received Abilify Maintena 400 mg on 07/25/24 (next due 08/22/24) Continue Wellbutrin XL 300 mg Gather collateral Patient educated on: diagnosis, medication risk/benefits and therapeutic strategies Informed Consent: understands Reason for continued inpatient stay Substantial Risk for: stable for discharge Time Spent With Patient Time: Total time managing care of this patient today ____ minutes.
[2024-08-16 19:34] VITALS: BP 130/78; PULSE 108; RESP 18; TEMP 36.9; O2SAT 96
[2024-08-16] MEDS: traZODone HCL 50 MG TABLET PO (20:51)
[2024-08-17 07:00] VITALS: BMI 33.6
[2024-08-17 07:46] VITALS: BP 126/84; PULSE 82; TEMP 36.7; O2SAT 97
[2024-08-17] MEDS: buPROPion HCl XL 300 MG TAB.ER.24H PO (08:12)
--- NOTE | 2024-08-17 09:31 | P.PNPSI_ITS ---
Subjective Subjective Date of Service: 08/17/24 Reason For Visit: depression/SI Interim History: met with patient; discussed with team pt did not sleep much last night; he's not sure why. Otherwise, he continues to say he's better and no SI. Due to lack of sleep, typewriter ribbon winder discussed and pt agreed with starting PO Abilify until he gets his next Abilify Maintenna next wednesday. SW discussed case with outpt worker who will come see him today; they agree pt needs daytime structure Mental Status Exam Mental Status Exam Narrative: Pt is alert and oriented; behavior is cooperative, isolative, quiet; patient is not in distress; dressed in casual attire, balding, glasses, adequate hygiene; mood is described as better affect remains downcast; eye contact avoidant; Speech still somewhat slowed and soft but less; some psychomotor retardation (but may be baseline); thought process is goal directed; more linear; Thought content is on aftercare plan; otherwise pertinent to relevant topics; no delusional content expressed; no SI; no HI; Denies AVH; does not seem particularly internally preoccupied. Patients insight and judgment impaired but improved and adequate. Diagnostics Vital Signs (24Hr): Vital Signs - 24 hr 08/16/24 19:34 08/17/24 07:46 Temperature 98.4 F 98.0 F Pulse Rate 108 H 82 Respiratory Rate 18 Blood Pressure 130/78 126/84 Pulse Oximetry 96 97 Oxygen Delivery Method Room Air Room Air BMI result Body Mass Index 33.4 Labs 08/11/24 12:01 08/11/24 19:52 Medications Medications Current Medications Acetaminophen (Acetaminophen 325 Mg Tablet) 650 mg PO Q6H PRN PRN Reason: Headache/Pain, Scale 1-10 Al Hydroxide/Mg Hydroxide (Magnesium Hydrox/Alum Hydrox 30 Ml Oral.Susp) 30 ml PO Q6H PRN PRN Reason: Heartburn/Nausea Aripiprazole (Aripiprazole 10 Mg Tablet) 10 mg PO DAILY PRN PRN Reason: breakthrough symptoms Aripiprazole (Aripiprazole Er 400 Mg Suser.Syr) 400 mg IM Q28D [facility] Last Admin: 08/11/24 20:49 Dose: Not Given Bupropion HCl (Bupropion Hcl Xl 300 Mg Tab.Er.24h) 300 mg PO DAILY [facility] Last Admin: 08/17/24 08:12 Dose: 300 mg Hydroxyzine HCl (Hydroxyzine Hcl 25 Mg Tablet) 25 mg PO Q6H PRN PRN Reason: mild anxiety Last Admin: 08/16/24 20:51 Dose: 25 mg Magnesium Hydroxide (Milk Of Magnesia 30 Ml Oral.Susp) 30 ml PO DAILY PRN PRN Reason: Constipation Nicotine (Nicotine 21 Mg Patch.Td24) 21 mg TRANSDERMA DAILY PRN PRN Reason: smoking cessation Nicotine Polacrilex (Nicotine Polacrilex 2 Mg Gum) 4 mg BUCCAL Q2H PRN PRN Reason: Nicotine Cravings Trazodone HCl (Trazodone Hcl 50 Mg Tablet) 50 mg PO BEDTIME MRX1 PRN PRN Reason: Insomnia Trazodone HCl (Trazodone Hcl 50 Mg Tablet) 50 mg PO BEDTIME SERGIO Last Admin: 08/16/24 20:51 Dose: 50 mg Allergies Allergies Allergy/AdvReac Type Severity Reaction Status Date / Time No Known Allergies Allergy Verified 08/11/24 11:04 Assessment & Plan Assessment & Plan (1) Schizoaffective disorder, bipolar type: Status: Acute Code(s): F25.0 - Schizoaffective disorder, bipolar type Plan HPI Patient is a 39-year-old male with history of schizoaffective disorder bipolar type, who presents for depressive episode and suicidal thinking. Patient reports that who was overall doing okay since last winter but at some point started getting depressed. Initially he said it was just for a few days but then said it has been for a few weeks; he has no idea why or what the trigger was and has remained on his medication, getting Abilify Maintenna 400mg on 07/25/24. Patient says that over the last week he started having suicidal thoughts and wanted to come to the hospital to participate in physician assisted suicide. He told this to his out patient director of casework department who took him to the hospital. Patient said he was a little surprised that he came to the unit thinking that he would be already via physician assisted suicide and is currently disappointed about this. He says he would never actually go out and hurt himself however. Patient is amenable to trying Wellbutrin which he said he was on in the past though his memory of its affect seems cloudy. Also discussed lithium however he is not interested in that right now. Patient denies any recent manic episodes or manic type behaviors; his report of insomnia for the past week seems due to depression. Patient denies any AVH; denies any drug or alcohol use. Formulation/clinical reasoning: Patient presents with significant depressive episode and wanting physician assisted suicide. He denies he would ever attempt suicide himself and has had only 1 near attempt over 20 years ago. Discussed medications including Wellbutrin, lithium as well as ECT; patient willing to try Wellbutrin Hospital course: 08/13 Though he remains quite downcast, he is out in the milieu. Patient says he remains depressed but is feeling a little better. SI remains however he says it is not as much and right now he is not thinking of physician assistant bookkeeper suicide. Patient tolerating Wellbutrin and agrees to increase dose 08/14 Patient reports he is feeling a little better, at least better than yesterday and says depression seems to be lessening; no SI. Patient tolerated Wellbutrin.. Patient denies any AVH as well. Given that this improvement is still very new, he is willing to and did retract his 3 day notice to make sure continues to progress. -social work talked with patient's father who recommended a snf; will discuss with patient further 08/15 Patient reports that he remains better and denies any SI at all. However he still has downcast affect and mostly keeps to himself. Operator [employer] asked about patient isolating, keeping to himself and he said he has been out and about earlier in the day which is true. Need more collateral regarding baseline and social work reaching out to outpatient team -also, patient's presentation has ASD features which can be further explored 08/17 pt did not sleep much last night; he's not sure why. Otherwise, he continues to say he's better and no SI. Due to lack of sleep, typewriter ribbon winder discussed and pt agreed with starting PO Abilify until he gets his next Abilify Maintenna next wednesday. SW discussed case with outpt worker who will come see him today; they agree pt needs daytime structure Plan: CV; START abilfy 10 PO for 5 days until gets Next Abilfy maintenna (hx of it wearing out too soon) Patient received Abilify Maintena 400 mg on 07/25/24 (next due 08/22/24) Continue Wellbutrin XL 300 mg trazodone 100mg qhs Gather collateral Patient educated on: diagnosis and medication risk/benefits Informed Consent: understands Reason for continued inpatient stay Substantial Risk for: stable for discharge, rapid decompensation and med/psych decompensation Time Spent With Patient Time: Total time managing care of this patient today ____ minutes.
[2024-08-17] MEDS: ARIPiprazole 5 MG TABLET PO (10:58)
[2024-08-17 20:00] VITALS: BP 131/87; PULSE 116; RESP 18; TEMP 36.8; O2SAT 98
[2024-08-17] MEDS: traZODone HCL 100 MG TABLET PO (20:48)
[2024-08-17] MEDS: hydrOXYzine HCL 25 MG TABLET PO (20:49)
[2024-08-18 08:00] VITALS: BP 120/76; PULSE 83; TEMP 36.3; O2SAT 97
--- NOTE | 2024-08-18 08:06 | P.DS_ITS ---
DS: Providers Provider Date of Service: 08/18/24 Date of admission: 08/11/24 15:13 Date of discharge: 08/18/24 Primary care physician: Unknown Physician Attending physician on admission: John Dye Attending physician on discharge: John Dye DS: Diagnosis Discharge Diagnosis (1) Schizoaffective disorder, bipolar type: Status: Acute DS: Medications Discharge Medications Home Medications: Previous Rx's ?Medication ?Instructions ?Recorded aripiprazole 400 mg suspension, 400 mg IM Q28D 24 days #1 ea 02/16/24 extended rel.intramuscular syringe (Abilify Maintena) aripiprazole 10 mg tablet (Abilify) 10 mg PO DAILY 7 days #7 tabs 08/17/24 bupropion HCl 300 mg 24 hr tablet, 300 mg PO DAILY 30 days #30 tabs 08/17/24 extended release trazodone 100 mg tablet 100 mg PO BEDTIME 30 days #30 tabs 08/18/24 Mental Status Exam Mental Status Exam Narrative: Pt is alert and oriented; behavior is cooperative, isolative, quiet; patient is not in distress; dressed in casual attire, balding, glasses, adequate hygiene; mood is baseline improved; affect remains downcast; eye contact avoidant; Speech still somewhat slowed and soft but less; some psychomotor retardation (but may be baseline); thought process is goal directed; more linear; Thought content is on aftercare plan; otherwise pertinent to relevant topics; no delusional content expressed; no SI; no HI; Denies AVH; does not seem particularly internally preoccupied. Patients insight and judgment fair, at baseline and adequate. Data Data Completed and Pending Completed studies during hospitalization [Text1]: 08/11/24 08/11/24 12:01 19:52 WBC 7.8 RBC 5.36 Hgb 15.6 Hct 45.1 MCV 84.1 MCH 29.1 MCHC 34.6 RDW 12.4 Plt Count 312 MPV 8.4 L Immature Gran % (Auto) 0.1 Neut % (Auto) 64.8 Lymph % (Auto) 26.3 Pierce % (Auto) 6.8 Eos % (Auto) 1.5 Baso % (Auto) 0.5 Lymph # (Auto) 2.1 Pierce # (Auto) 0.5 Eos # (Auto) 0.1 Baso # (Auto) 0.0 Abs Immat Gran (auto) 0.01 Absolute Neuts (auto) 5.1 Absolute Nucleated RBC 0.000 Nucleated RBC % (auto) 0.0 Sodium 139 137 Potassium 3.9 3.8 Chloride 104 104 Carbon Dioxide 25 24 Anion Gap 14 13 BUN 14 15 Creatinine 1.08 1.16 Estim Creat Clear Calc 112.6 104.0 Estimated GFR > 60 > 60 Random Glucose 95 125 H Calcium 9.7 9.6 Total Bilirubin 0.4 0.4 AST 44 H 44 H ALT 61 H 58 H Alkaline Phosphatase 79 80 Total Protein 7.7 7.5 Albumin 4.5 4.5 Urine Color Yellow Urine Appearance Clear Urine pH 8.0 Ur Specific Calvin 1.020 Urine Protein 30 (1+) H Urine Glucose (UA) Negative Urine Ketones Negative Urine Blood Negative Urine Nitrite Negative Ur Leukocyte Esterase Negative Urine RBC 0-2 Urine WBC 0-5 Ur Squamous Epith Cells 0-2 Urine Bacteria None Seen Hyaline Casts 0-2 Salicylates < 5.0 L Urine Opiates Screen Not Detected Ur Buprenorphine Scrn Not Detected Ur Oxycodone Screen Not Detected Urine Methadone Screen Not Detected Urine Fentanyl Screen Not Detected Acetaminophen < 3 Ur Barbiturates Screen Not Detected Ur Phencyclidine Scrn Not Detected Ur Amphetamines Screen Not Detected U Benzodiazepines Scrn Not Detected Urine Cocaine Screen Not Detected U Marijuana (THC) Screen Not Detected Ethyl Alcohol < 10 COVID-19 (MARIMAR) Negative COVID-19 Clin Com See Note DS: Summary Hospital Course Hospital Course: HPI Patient is a 39-year-old male with history of schizoaffective disorder bipolar type, who presents for depressive episode and suicidal thinking. Patient reports that who was overall doing okay since last winter but at some point started getting depressed. Initially he said it was just for a few days but then said it has been for a few weeks; he has no idea why or what the trigger was and has remained on his medication, getting Abilify Maintenna 400mg on 07/25/24. Patient says that over the last week he started having suicidal thoughts and wanted to come to the hospital to participate in physician assisted suicide. He told this to his out patient supervisor case loading who took him to the hospital. Patient said he was a little surprised that he came to the unit thinking that he would be already via physician assisted suicide and is currently disappointed about this. He says he would never actually go out and hurt himself however. Patient is amenable to trying Wellbutrin which he said he was on in the past though his memory of its affect seems cloudy. Also discussed lithium however he is not interested in that right now. Patient denies any recent manic episodes or manic type behaviors; his report of insomnia for the past week seems due to depression. Patient denies any AVH; denies any drug or alcohol use. Formulation/clinical reasoning: Patient presents with significant depressive episode and wanting physician assisted suicide. He denies he would ever attempt suicide himself and has had only 1 near attempt over 20 years ago. Discussed medications and patient agreed to Wellbutrin. Sheldon or ECT remain considerations. Hospital course: Depressed, affect downcast and with SI on admission. Pt was started on Wellbutrin which was well tolerated and partially helpful. SI resolved and over next several days pt continued to say he was better, that depression was mostly resolved and he was feeling back to his regular self. Pt had a sleepless night and so Abilify 10 mg PO was started for a week to bridge time until he gets next KAPOOR (as pt has hx of finding that Maintenna wears off too soon). Pt felt ready for discharge home. Although reporting he felt better, he remained with somewhat of a downcast and blunted affect. During the admission patient alluded to being chronically lonely; this was discussed with his outpt's teams who concurs but says he's been this way for years and despite their efforts, he resists changing his routine. Patient agreed but remained ambivalent about making changes, though said he's more open to it. Patients outpt team visited and agreed he was at his baseline. Pt remained reporting he was feeling better and w/out any SI at all. Pt remained in good behavioral and impulse control. He continues to have community support. He is not in imminent risk of harm to self or others and appropriate to return to the community for treatment. Medications: Continue Abilify Maintenna 400mg IM Continue Abilfy 10 PO for 7 days as overlap as Abilfy Maintenna wears out too soon Started Wellbutrin XL 300 mg Started trazodone 100mg qhs Sheldon or ECT remain considerations Time Spent with Patient Time attestation: Total time managing care of this patient today ____ minutes. Discharge Plan Discharge Anticipated Discharge Date/Time: 08/18/24 11:00 Patient Disposition: Home, Self-Care Discharge Diagnosis: schizoaffective disorder, bipolar type Referrals: Physician,Unknown J [Primary Care Provider] - 1 Week Discharge Medications: New bupropion HCl 300 mg Tablet Extended Release 24 Hr 300 mg PO DAILY 30 Days Qty: 30 0RF trazodone 100 mg Tablet 100 mg PO BEDTIME 30 Days Qty: 30 0RF Continued Abilify Maintena 400 mg suspension,extended rel syring 400 mg IM Q28D 24 Days Qty: 1 0RF Rx Instructions: last received 02/11/24 Changed aripiprazole [Abilify] 10 mg tablet 10 mg PO DAILY 7 Days Qty: 7 0RF Rx Instructions: take 1 tab daily during week prior to getting KAPOOR Maintenna Discharge Orders: Discharge Order (Routine); Ordered 08/18/24 Ordered By: John Dye Diet: Regular diet Activity on Discharge: As tolerated Stand Alone Forms: Patient Portal Discharge page Print Language: Yakut Care Plan Goals: Maintain mood and safe behaviors Take medications as prescribed Practice coping skills Continue with outpatient providers and reach out to them as needed Health Concerns: Mood stability and behaviors Plan of Treatment: Follow up with your PCP, psychiatric provider and other outpatient providers regarding above concerns Take medications as prescribed Assessment: Risk assessment at time of discharge:? Patient was interviewed prior to discharge and found to be fully oriented and without any SI or HI. Patient has improved insight and judgment and wants to continue treatment. Patient is not in imminent risk of harm to self or others and has a safety plan that includes presenting to the closest ER or calling 911 if feeling unsafe.? Patient has been observed closely by nursing and unit staff throughout admission; patient has not engaged in any behaviors that suggest dangerousness to self or others and has demonstrated appropriate behaviors and impulse control
[2024-08-18] MEDS: buPROPion HCl XL 300 MG TAB.ER.24H PO (08:26)
[2024-08-18] MEDS: ARIPiprazole 10 MG TABLET PO (08:27)
== END 2024-08-18 11:40 | disposition home or self-care (01) | DRG 885 ==
LOC: HO.ED 16:17 → HO.PM5 16:20
PROVIDERS: Physician Assistant Medical; Admitting Provider Psychiatry & Neurology Psychiatry; Emergency Provider Emergency Medicine; Visit Provider Psychiatry & Neurology Psychiatry
DX: F25.0 Schizoaffective disorder, bipolar type (principal); R45.851 Suicidal ideations; Z20.822 Contact with and (suspected) exposure to COVID-19; Z79.899 Other long term (current) drug therapy
CPT/HCPCS: 36415; 80053; 80143; 80179; 80307; 81001; 85025; 87635; 93005; 99285; S9485

== ENCOUNTER → 2024-08-11 13:50 | Outpatient (BNV) | payer OTHER, SELFPAY | PROVIDERS: Admitting Provider Psychiatry & Neurology Psychiatry; Emergency Provider Emergency Medicine; Visit Provider Internal Medicine | DX: R00.0 Tachycardia, unspecified (principal) | CPT/HCPCS: 93010 ==

== ENCOUNTER → 2024-08-11 15:13 | Outpatient (BNV) | payer OTHER, SELFPAY | PROVIDERS: Admitting Provider Psychiatry & Neurology Psychiatry; Emergency Provider Emergency Medicine; Visit Provider Psychiatry & Neurology Psychiatry | DX: F25.0 Schizoaffective disorder, bipolar type (principal) | CPT/HCPCS: 90792; 99231; 99232; 99238 ==

== ENCOUNTER 2025-01-03 14:48 | Inpatient (IN) | payer OTHER, SELFPAY ==
--- NOTE | ~2025-01-03 | CT_ITS ---
EXAMINATION: CT SOFT TISSUE NECK WITH CONTRAST CLINICAL INFORMATION: Left mandibular tooth pain, rule out odontogenic abscess. COMPARISON: None available. TECHNIQUE: Following the intravenous administration of 60 mL of Omnipaque 350 intravenous contrast, helical imaging was performed in the axial plane with generation of coronal and sagittal reformatted images. This CT examination was performed using dose optimization techniques as appropriate, variously including the following: *Automated exposure control *Adjustment of mA and/or kV according to patient size (this includes techniques or standardized protocols for targeted exams where dose is matched to indication/reason for exam; i.e. extremities or head) *Use of iterative reconstruction technique DLP: mGy-cm FINDINGS: Alveolus: -There are both mandibular and maxillary carious lesions bilaterally. There are no periapical lucencies or regions of cortical erosion. There is no evidence of periosteal abscess or significant soft tissue swelling. Lymph Nodes: -Normal. No abnormal lymphadenopathy present. Carotid Sheath Structures: -Normal. Salivary Glands: -Normal. Tongue Base/Floor of Mouth: -Normal Mucosal Space: -Normal. -Normal aryepiglottic folds and epiglottis. Visceral Space: -Thyroid gland: Normal. -The larynx is normal. -Subglottic trachea is normal. -Cervical esophagus is normal. Retropharangeal Space: - Normal. Parapharyngeal Fat Planes: -Normal. [employer] Processing Equipment Mechanic Spaces: -Normal. Anterior Cervical Space: -Normal. Imaged Intracranial Contents: -No mass effect, edema, or abnormal enhancement. Cortical and dural venous sinuses are patent. The skull base is normal. Globes and Orbits: -Normal. Paranasal Sinuses/Mastoids/Tympanic Spaces: -Mucous retention cysts present in the left maxillary antrum. Otherwise Normally aerated bilaterally. Lung Apices and Superior Mediastinal Structures: -Imaged lung apices are clear and superior mediastinal structures are normal. Bony Structures: -No suspicious bone lesions. No fractures. -Normal TM joints. CT/CT soft tissue neck w IV con IMPRESSION: 1. Maxillary and mandibular carious lesions without periapical lucencies. There are no cortical erosions. There is no evidence of odontogenic abscess or soft tissue swelling. 2. Remainder of the neck is normal in appearance. There is no mass or lymphadenopathy present. Electronically signed by: Shane Connolly MD 01/12/2025 09:38 AM EDT RP
--- NOTE | 2025-01-03 14:58 | ED_ITS ---
HPI - Psych General Chief Complaint: Psychiatric Symptoms Stated Complaint: SI WITH JAW PAIN Time Seen by Provider: 01/03/25 14:53 Source: patient and EMS Mode of arrival: EMS Limitations: no limitations History of Present Illness ED Provider: HPI Narrative: 39-year-old male history of schizoaffective disorder and depression presenting to the emergency department today with suicidal ideation we would like to slit his neck, he is also having right dental pain for the past few days, no fevers or chills reported. Has not taken any antibiotics or medications for that. Related Data Previous Rx's ?Medication ?Instructions ?Recorded aripiprazole 400 mg suspension, 400 mg IM Q28D 24 days #1 ea 02/16/24 extended rel.intramuscular syringe (Abilify Maintena) aripiprazole 10 mg tablet (Abilify) 10 mg PO DAILY 7 d ays #7 tabs 08/17/24 bupropion HCl 300 mg 24 hr tablet, 300 mg PO DAILY 30 days #30 tabs 08/17/24 extended release trazodone 100 mg tablet 100 mg PO BEDTIME 30 days #3 0 tabs 08/18/24 Allergies Allergy/AdvReac Type Severity Reaction Status Date / Time No Known Allergies Allergy Verified 01/03/25 15:02 Review of Systems Constitutional: Constitutional: Reports as per HPI [facility] Past Medical History Medical History Schizoaffective disorder, bipolar type Social History Social History Household Members: None Housing: Apartment Do you presently have visiting nurse or other home services: No Alcohol intake: former Patient Tobacco Use Status: Never used Tobacco e-Cigarette/Vaping Use: Never Used service: No Sexual orientation: Straight/Heterosexual Physical Exam Vital Signs: Vital Signs: Last Vital Signs Temp 98.3 F 01/03/25 14:59 Pulse 100 01/03/25 14:59 Resp 16 01/03/25 14:59 BP 140/9 H 01/03/25 14:59 Pulse Ox 99 01/03/25 14:59 O2 Del Method Room Air 01/03/25 14:59 BMI result Body Mass Index 31.6 Const: Other: * Gen: ?Overall well-appearing patient * HEENT: Tender over right premolar, there is a filling in that tooth, uvula midline, no trismus, slight right facial swelling * Neck: Supple, no LAD * CV: RRR, no obvious murmurs appreciated * Resp: ?No wheezing rales rhonchi no stridor moving air well * Abd: ?Bowel sounds are present, no tenderness no rebound no rigidity * MSK: FROM, strength 5/5 all extremities * Skin: Warm, dry, intact, * Neuro: ?Alert and oriented x3, moving upper and lower extremities symmetrically, no obvious facial asymmetry noted Medical Decision Making Medical Decision Making [facility] Narrative: Presenting with a suicidal plan in the setting of schizoaffective disorder, also likely periapical abscess right lower premolar, no evidence for deep space infection, we will start her on antibiotics we will continue for the next 5 days Differential Diagnosis Differential Diagnoses: The differential diagnosis associated with the presentation includes (Dental abscess, TMJ, mandible fracture, SI, overdose, deep space infection of the oropharynx) Lab Data [facility] Lab Attestation statement: I reviewed the patient's lab results. Discharge Plan Discharge Clinical Impression: Suicidal ideation, Schizoaffective disorder, bipolar type, Pain, dental Prescriptions: No Action Abilify Maintena 400 mg suspension,extended rel syring 400 mg IM Q28D 24 Days Qty: 1 0RF Rx Instructions: last received 02/11/24 bupropion HCl 300 mg Tablet Extended Release 24 Hr 300 mg PO DAILY 30 Days Qty: 30 0RF aripiprazole [Abilify] 10 mg tablet 10 mg PO DAILY 7 Days Qty: 7 0RF Rx Instructions: take 1 tab daily during week prior to getting KAPOOR Maintenna trazodone 100 mg Tablet 100 mg PO BEDTIME 30 Days Qty: 30 0RF Print Language: Nicaraguan
[2025-01-03 14:59] VITALS: BP 140/9; BP 158/82; PULSE 100; PULSE 74; RESP 16; TEMP 36.8; O2SAT 99; BMI 31.6
[2025-01-03 15:35] LABS: MANUAL DIFF FLAG NO
[2025-01-03 15:36] LABS: Hematocrit 43.6 % (42.0-52.0); Hemoglobin 14.7 g/dl (14.0-18.0); Imm Gran Abs Auto 0.03 X10*3/uL (0.00-0.03); Imm Gran Pct Auto 0.4 % (0.0-0.4); Lymphocytes Absolute Auto 2.1 X10*3/uL (1.2-4.9); Mean Corpuscular HGB Conc 33.7 g/dl (31.0-36.0); Mean Corpuscular Hemoglobin 28.8 pg (27.0-33.0); Mean Corpuscular Volume 85.3 fL (80.0-98.0); NRBC Abs Auto 0.000 X10*3/uL (0.0-0.012); NRBC Pct Auto 0.0 /100WBC (0.0-0.2); Platelet Count 279 X10*3/uL (160-400); Red Blood Count 5.11 X10*6/uL (4.60-5.80); White Blood Count 8.2 X10*3/uL (4.8-10.8)
[2025-01-03 15:55] LABS: Acetaminophen LAB < 3 mcg/mL (<30); Salicylate < 5.0 mg/dL (15-30)
[2025-01-03 15:56] LABS: Alanine Aminotransferase 70 U/L (0-40); Albumin Level 4.2 g/dL (3.5-5.0); Alkaline Phosphatase 71 U/L (39-117); Anion Gap 10 (12-20); Aspartate Amino Transferase 37 U/L (5-37); Blood Urea Nitrogen 12 mg/dL (9-16); Calcium 9.0 mg/dL (8.4-10.2); Carbon Dioxide 28 mmol/L (22-29); Chloride 104 mmol/L (96-108); Creatinine Clr Calc Pharmacy 108.7; Estimated Glomerular Filt Rate > 60; Potassium 4.1 mmol/L (3.3-5.1); Sodium 138 mmol/L (135-145); Total Protein 6.9 g/dL (6.5-8.0)
--- NOTE | 2025-01-03 17:30 | MHC.CARE ---
Pt will be adult IPLOC. Section 12a in chart for safety.
[2025-01-03 19:18] VITALS: RESP 16
--- NOTE | 2025-01-03 19:21 | PC.NURSE ---
Assumed care of patient at 1845, patient is calm and cooperative at this time, respirations are even and unlabored, pt is resting in bed at this time. Continue plan of care for IPLOC
[2025-01-03 19:56] LABS: Appearance Urine Clear; Glucose Urine UA Negative (Negative); PH 6.0 (5.0-9.0); Specific Gravity - Urine 1.015 (1.005-1.025)
[2025-01-03 20:05] LABS: Cannabinoid Screen Urine Not Detected (Not Detect)
--- NOTE | 2025-01-04 03:16 | PC.NURSE ---
Resumed care of pt at 0300, he is currently sleeping at this time, pt remains on Q15 minute checks, IPLOC at this time.
[2025-01-04 03:57] VITALS: BP 137/74; PULSE 86; RESP 18; TEMP 37; O2SAT 97
--- NOTE | 2025-01-04 05:37 | PC.NURSE ---
Pt found to be wondering in room and standing by door, this RN went and talked with patient. This RN asked if he was doing okay, pt replied yes I just want to watch the TV pt noted to be watching the common area TV, this RN offered to turn on pts TV so he could watch TV in his room but he declined. This RN assessed if he was having any hallucinations at this time but he denied. Pt reporting pain in his jaw, PRN APAP given at this time, along with PO intake of gingerale and pudding. Pt returned to room at this time and is currently sitting on the edge of his bed.
--- NOTE | 2025-01-04 07:57 | ECG_ITS ---
Test Reason : check qtc interval Blood Pressure : */* mmHG Vent. Rate : 84 BPM Atrial Rate : 84 BPM P-R Int : 168 ms QRS Dur : 98 ms QT Int : 382 ms P-R-T Axes : 43 24 38 degrees QTcB Int : 451 ms Normal sinus rhythm Normal ECG When compared with ECG of 11-Aug-2024 15:00, No significant change was found Referred By: Kayden Sumner Electronically Signed By: AILEEN PAREDES
[2025-01-04 14:24] VITALS: BP 122/86; PULSE 84; RESP 16; TEMP 36.7; O2SAT 97; BMI 32.7
--- NOTE | 2025-01-04 16:26 | PC.ADMIT ---
Juan is a 39y/o japanese speaking male admitted from the [facility] pod on a CV with a dx of Schizoaffective d/o with SI. Pt was in the community and reported he wanted to ?slit his throat.? Pt reports, ?my toothache got so bad I couldn?t take it anymore and just wanted to end it.? Pt has community support through [facility] and [facility]. Mood is depressed with a flat affect. Pt reported depression 5/10. Pt says he is safe now and the tooth pain has decreased. Pt reports occasional AH (hissing and growling) and VH of ? tall shadow figure with red eyes). Pt did not appear to be responding during assessment. Thoughts were linear and focused. Pt reports a recent weight loss of ?about 20lbs ?over the past couple of months. Pt reports sleep disturbances and only sleeping a couple of hours at a time. Pt relates this to nightmares. Pts tox screen was negative for all substances and he denies any substance use. Pts only medical concern is an infected tooth in the upper right molars. Pts tooth is being treated with antibiotics, Clindamycin ( stop date 01/08). Pt was on Abilify Maintena, last injection 02/2024. Pt currently taking Abilify po and reports compliance with medications.Pt is placed on 15 minute safety checks.
[2025-01-04 19:26] VITALS: BP 148/80; PULSE 99; RESP 16; TEMP 37.4; O2SAT 96
[2025-01-05 07:20] VITALS: BP 123/76; PULSE 95; RESP 16; TEMP 36.2; O2SAT 95
[2025-01-05 08:07] LABS: Alanine Aminotransferase 70 U/L (0-40); Albumin Level 4.2 g/dL (3.5-5.0); Alkaline Phosphatase 71 U/L (39-117); Anion Gap 14 (12-20); Aspartate Amino Transferase 41 U/L (5-37); Blood Urea Nitrogen 11 mg/dL (9-16); Calcium 9.1 mg/dL (8.4-10.2); Carbon Dioxide 23 mmol/L (22-29); Chloride 104 mmol/L (96-108); Cholesterol 176 mg/dL (<200); Creatinine Clr Calc Pharmacy 100.3; Estimated Glomerular Filt Rate > 60; HDL Cholesterol 43 mg/dL (>40); Potassium 4.0 mmol/L (3.3-5.1); Sodium 137 mmol/L (135-145); Total Protein 7.1 g/dL (6.5-8.0); Triglycerides 159 mg/dL (<150)
[2025-01-05 08:14] LABS: Hemoglobin A1C 135.8654 umol/L; Total Hemoglobin (HGBA1C) 4002.2404 umol/L
[2025-01-05] MEDS: buPROPion HCl XL 300 MG TAB.ER.24H PO (08:25)
--- NOTE | 2025-01-05 08:47 | HO.PSYADMNOT ---
HPI Date of Service: 01/05/25 Chief Complaint: SI Sources of Information: patient interviewed, chart reviewed and crisis/core team assessment reviewed HPI Subjective Notes: Kwon Warning and Conditional Voluntary Narrative: Patient is a 39-year-old male with history of schizoaffective disorder who presented to ER via ambulance due to suicide ideation with a plan to slit his throat secondary to increased dental pain. Per crisis report, patient reported this has been going on for the past several days. Patient reported worsening depression, hopelessness and suicidal ideation with plan. Patient reported the dental pain is what has reportedly caused these emotions. Patient's ax survey worker reported patient has been responding to internal stimuli and reported it increases when patient is unwell. Patient reported increased depression due to jaw pain; patient was given medication and does not have pain currently. Patient reported experiencing auditory and visual hallucinations between the hours of 10pm and 2am . He denies HI. He reports poor sleep and appetite. Did not appear to be responding to internal stimuli during assessment. During admission assessment, patient presents alert and oriented x3. Calm and cooperative. Patient reports feeling okay today; patient stated, the tooth ache made me suicidal. The pain is still there but it's a 1 or 2 now, before it was a 10. The antibiotic and Tylenol are helping . Patient reports being medication compliant at home; He reports having a VNA who visits him daily. Patient denies SI/HI/VH/AH. Patient reports he wants to be in the hospital so he can learn how to cope with pain . Patient reports his sleep and appetite are decent. Patient reports having a prescriber through [facility] but he does not have a therapist and states that he is interested in having one. Past Psychiatric History: History of multiple inpatient psychiatric hospitalization. Outpatient prescriber: Kirsten Shankar ([facility]) Does not have outpatient therapist at this time. Abilify Maintena 400 mg Q monthly which he said he has been on for years SA: one near attempt at 18yo, planning to jump off bridge Denies history of SIB. Med trials: lithium; a long time ago, helped mood wellbutrin: maybe helpful, maybe a numbing effect? Vraylar: nausea? ECT in past Medical Evaluation Reviewed: Yes [facility] Medical History Schizoaffective disorder, bipolar type Family History: Denies Social History: Lives on his own. Single. No kids. Disability. Some college. Substance History: Denies Trauma History: Denies Diagnostics Vital Signs (24Hr): Vital Signs - 24 hr 01/04/25 14:24 01/04/25 19:26 01/05/25 07:20 Temperature 98.0 F 99.4 F 97.2 F Pulse Rate 84 99 95 Respiratory Rate 16 16 16 Blood Pressure 122/86 148/80 H 123/76 Pulse Oximetry 97 96 95 Oxygen Delivery Method Room Air Room Air Room Air BMI result Body Mass Index 32.7 Labs 01/03/25 15:32 01/05/25 07:43 Labs: Laboratory Results - last 48 hr 01/03/25 01/03/25 01/05/25 15:32 19:37 07:43 WBC 8.2 RBC 5.11 Hgb 14.7 Hct 43.6 MCV 85.3 MCH 28.8 MCHC 33.7 RDW 12.9 Plt Count 279 MPV 8.3 L Immature Gran % (Auto) 0.4 Neut % (Auto) 63.7 Lymph % (Auto) 25.5 [place] % (Auto) 8.4 Eos % (Auto) 1.8 Baso % (Auto) 0.2 Lymph # (Auto) 2.1 [place] # (Auto) 0.7 Eos # (Auto) 0.2 Baso # (Auto) 0.0 Abs Immat Gran (auto) 0.03 Absolute Neuts (auto) 5.2 Absolute Nucleated RBC 0.000 Nucleated RBC % (auto) 0.0 Sodium 138 137 Potassium 4.1 4.0 Chloride 104 104 Carbon Dioxide 28 23 Anion Gap 10 L 14 BUN 12 11 Creatinine 1.08 1.19 Estim Creat Clear Calc 108.7 100.3 Estimated GFR > 60 > 60 Random Glucose 87 130 H Estimat Average Glucose 105 Hemoglobin A1c % 5.3 Calcium 9.0 D 9.1 Total Bilirubin 0.3 0.5 AST 37 41 H ALT 70 H 70 H Alkaline Phosphatase 71 71 Total Protein 6.9 7.1 Albumin 4.2 4.2 Triglycerides 159 H Cholesterol 176 LDL Cholesterol, Calc 102 H HDL Cholesterol 43 Urine Color Yellow Urine Appearance Clear Urine pH 6.0 Ur Specific [place] 1.015 Urine Protein Negative Urine Glucose (UA) Negative Urine Ketones Negative Urine Blood Negative Urine Nitrite Negative Ur Leukocyte Esterase Negative Salicylates < 5.0 L Urine Opiates Screen Not Detected Ur Buprenorphine Scrn Not Detected Ur Oxycodone Screen Not Detected Urine Methadone Screen Not Detected Urine Fentanyl Screen Not Detected Acetaminophen < 3 Ur Barbiturates Screen Not Detected Ur Phencyclidine Scrn Not Detected Ur Amphetamines Screen Not Detected U Benzodiazepines Scrn Not Detected Urine Cocaine Screen Not Detected U Marijuana (THC) Screen Not Detected Ethyl Alcohol < 10 Meds/Allergies Allergies Allergies Allergy/AdvReac Type Severity Reaction Status Date / Time No Known Allergies Allergy Verified 01/03/25 15:02 Mental Status Exam Mental Status Exam Narrative: Pt is alert and oriented; behavior is cooperative and calm; dressed in casual attire; mood is described as fine ; eye contact appropriate; Speech is normal rate, volume and not pressured; thought process is organized; Thought content is on tx; denies SI/HI/VH/AH. Assessment & Plan Assessment & Plan (1) Schizoaffective disorder, bipolar type: Status: Acute Code(s): F25.0 - Schizoaffective disorder, bipolar type Plan Patient is a 39-year-old male with history of schizoaffective disorder who presented to ER via ambulance due to suicide ideation with a plan to slit his throat secondary to increased dental pain. Plan: CV 15 minute safety checks obtain collateral Started on antibiotic in ER continue home medications Add: Ibuprophen and Anbesol oral gel encourage groups discharge planning Patient educated on: diagnosis, medication risk/benefits and therapeutic strategies Reason for continued inpatient stay Substantial Risk for: med/psych decompensation Statement Statement: I have reviewed the history and physical and performed a pertinent examination on my patient. No changes have occurred unless specified. If the History and Physical was not performed prior to admission, the Hospitalist's service will be consulted for completing the admission physical. Time Spent With Patient Time: Total time managing care of this patient today _60___ minutes.
[2025-01-05] MEDS: Benzocaine 20 % Oral Gel 9 GM TUBE 1 APPL MUCOUS MEM ×2 (15:13→21:20)
[2025-01-05 19:53] VITALS: BP 115/66; PULSE 91; RESP 18; TEMP 36.7; O2SAT 95
[2025-01-06 07:42] VITALS: BP 117/64; PULSE 87; RESP 16; TEMP 36.9; O2SAT 95
[2025-01-06] MEDS: buPROPion HCl XL 300 MG TAB.ER.24H PO (08:28)
[2025-01-06] MEDS: Benzocaine 20 % Oral Gel 9 GM TUBE 1 APPL MUCOUS MEM ×2 (08:30→16:22)
--- NOTE | 2025-01-06 14:24 | HO.PSYCHPN ---
Subjective Subjective Date of Service: 01/06/25 Reason For Visit: SI Subjective Notes: Conditional Voluntary Interim History: Active on unit, keeping to self. medication compliant. patient reports feeling better today; pt stated, I'm not in much pain today from my tooth . He reports sleeping well last night. denies SI/HI/VH/AH. Continue current tx plan. Medication Compliance: Yes Side effects from medications: No Attending Groups: Yes Mental Status Exam Mental Status Exam Narrative: Pt is alert and oriented; behavior is cooperative and calm; dressed in casual attire; mood is described as better ; eye contact appropriate; Speech is normal rate, volume and not pressured; thought process is organized; Thought content is on tx; denies SI/HI/VH/AH. Diagnostics Vital Signs (24Hr): Vital Signs - 24 hr 01/05/25 19:53 01/06/25 07:42 Temperature 98.0 F 98.4 F Pulse Rate 91 87 Respiratory Rate 18 16 Blood Pressure 115/66 117/64 Pulse Oximetry 95 95 Oxygen Delivery Method Room Air Room Air BMI result Body Mass Index 32.7 Labs 01/03/25 15:32 01/05/25 07:43 Labs: Laboratory Results - last 48 hr 01/05/25 07:43 Sodium 137 Potassium 4.0 Chloride 104 Carbon Dioxide 23 Anion Gap 14 BUN 11 Creatinine 1.19 Estim Creat Clear Calc 100.3 Estimated GFR > 60 Random Glucose 130 H Estimat Average Glucose 105 Hemoglobin A1c % 5.3 Calcium 9.1 Total Bilirubin 0.5 AST 41 H ALT 70 H Alkaline Phosphatase 71 Total Protein 7.1 Albumin 4.2 Triglycerides 159 H Cholesterol 176 LDL Cholesterol, Calc 102 H HDL Cholesterol 43 Medications Medications Current Medications Acetaminophen (Acetaminophen 325 Mg Tablet) 650 mg PO Q6H PRN PRN Reason: Headache/Pain, Scale 1-10 Last Admin: 01/06/25 08:30 Dose: 650 mg Al Hydroxide/Mg Hydroxide (Magnesium Hydrox/Alum Hydrox 30 Ml Oral.Susp) 30 ml PO Q6H PRN PRN Reason: Heartburn/Nausea Aripiprazole (Aripiprazole 10 Mg Tablet) 10 mg PO DAILY [facility] Last Admin: 01/06/25 08:28 Dose: 10 mg Aripiprazole (Aripiprazole Er 400 Mg Suser.Syr) 400 mg IM Q30D [facility] Benzocaine (Benzocaine 20 % Oral Gel 9 Gm Tube) 1 appl MUCOUS MEM QID PRN; Protocol PRN Reason: tooth pain Last Admin: 01/06/25 08:30 Dose: 1 appl Bupropion HCl (Bupropion Hcl Xl 300 Mg Tab.Er.24h) 300 mg PO DAILY [facility] Last Admin: 01/06/25 08:28 Dose: 300 mg Clindamycin HCl (Clindamycin Hcl 150 Mg Capsule) 450 mg PO TID [facility] Stop: 01/08/25 15:01 Last Admin: 01/06/25 14:00 Dose: 450 mg Hydroxyzine HCl (Hydroxyzine Hcl 25 Mg Tablet) 25 mg PO Q6H PRN PRN Reason: mild anxiety Ibuprofen (Ibuprofen 800 Mg Tablet) 800 mg PO Q8H PRN PRN Reason: Pain, Severe (Pain Scale 7-10) Last Admin: 01/06/25 11:27 Dose: 800 mg Magnesium Hydroxide (Milk Of Magnesia 30 Ml Oral.Susp) 30 ml PO DAILY PRN PRN Reason: Constipation Nicotine Polacrilex (Nicotine Polacrilex 2 Mg Gum) 4 mg BUCCAL Q2H PRN PRN Reason: Nicotine Cravings Trazodone HCl (Trazodone Hcl 100 Mg Tablet) 100 mg PO BEDTIME [facility] Last Admin: 01/05/25 21:16 Dose: 100 mg Allergies Allergies Allergy/AdvReac Type Severity Reaction Status Date / Time No Known Allergies Allergy Verified 01/03/25 15:02 Assessment & Plan Assessment & Plan (1) Schizoaffective disorder, bipolar type: Status: Acute Code(s): F25.0 - Schizoaffective disorder, bipolar type Plan Patient is a 39-year-old male with history of schizoaffective disorder who presented to ER via ambulance due to suicide ideation with a plan to slit his throat secondary to increased dental pain. Plan: CV 15 minute safety checks obtain collateral Started on antibiotic in ER continue home medications Add: Ibuprophen and Anbesol oral gel encourage groups discharge planning 01/06: Active on unit, keeping to self. medication compliant. patient reports feeling better today; pt stated, I'm not in much pain today from my tooth . He reports sleeping well last night. denies SI/HI/VH/AH. Continue current tx plan. Patient educated on: diagnosis, medication risk/benefits and therapeutic strategies Reason for continued inpatient stay Substantial Risk for: med/psych decompensation Time Spent With Patient Time: Total time managing care of this patient today 20____ minutes.
[2025-01-06] MEDS: Milk of Magnesia 30 ML ORAL.SUSP PO (15:08)
[2025-01-06 19:25] VITALS: BP 120/73; PULSE 99; RESP 16; TEMP 37.2; O2SAT 99
[2025-01-07] MEDS: Benzocaine 20 % Oral Gel 9 GM TUBE 1 APPL MUCOUS MEM ×4 (03:06→17:58)
[2025-01-07 07:37] VITALS: BP 108/62; PULSE 77; RESP 16; TEMP 36.7; O2SAT 97
[2025-01-07] MEDS: buPROPion HCl XL 300 MG TAB.ER.24H PO (08:23)
--- NOTE | 2025-01-07 08:29 | HO.PSYCHPN ---
Subjective Subjective Date of Service: 01/07/25 Reason For Visit: SI Subjective Notes: Conditional Voluntary Interim History: Active on unit, keeping to self. attending groups. patient reports feeling better ; he reports some anxiety, plans on going to dentist after discharge. denies SI/HI/VH/AH. per nursing, slept 7 hours. Continue current tx plan. Medication Compliance: Yes Side effects from medications: No Attending Groups: Yes Mental Status Exam Mental Status Exam Narrative: Pt is alert and oriented; behavior is cooperative and calm; dressed in casual attire; mood is described as good ; eye contact appropriate; Speech is normal rate, volume and not pressured; thought process is organized; Thought content is on tx; denies SI/HI/VH/AH. Diagnostics Vital Signs (24Hr): Vital Signs - 24 hr 01/06/25 19:25 01/07/25 07:37 Temperature 99.0 F 98.1 F Pulse Rate 99 77 Respiratory Rate 16 16 Blood Pressure 120/73 108/62 Pulse Oximetry 99 97 Oxygen Delivery Method Room Air Room Air BMI result Body Mass Index 32.7 Labs 01/03/25 15:32 01/05/25 07:43 Medications Medications Current Medications Acetaminophen (Acetaminophen 325 Mg Tablet) 650 mg PO Q6H PRN PRN Reason: Headache/Pain, Scale 1-10 Last Admin: 01/07/25 03:10 Dose: 650 mg Al Hydroxide/Mg Hydroxide (Magnesium Hydrox/Alum Hydrox 30 Ml Oral.Susp) 30 ml PO Q6H PRN PRN Reason: Heartburn/Nausea Aripiprazole (Aripiprazole 10 Mg Tablet) 10 mg PO DAILY [facility] Last Admin: 01/07/25 08:23 Dose: 10 mg Aripiprazole (Aripiprazole Er 400 Mg Suser.Syr) 400 mg IM Q30D [facility] Benzocaine (Benzocaine 20 % Oral Gel 9 Gm Tube) 1 appl MUCOUS MEM QID PRN; Protocol PRN Reason: tooth pain Last Admin: 01/07/25 03:06 Dose: 1 appl Bupropion HCl (Bupropion Hcl Xl 300 Mg Tab.Er.24h) 300 mg PO DAILY [facility] Last Admin: 01/07/25 08:23 Dose: 300 mg Clindamycin HCl (Clindamycin Hcl 150 Mg Capsule) 450 mg PO TID [facility] Stop: 01/08/25 15:01 Last Admin: 01/07/25 08:23 Dose: 450 mg Hydroxyzine HCl (Hydroxyzine Hcl 25 Mg Tablet) 25 mg PO Q6H PRN PRN Reason: mild anxiety Ibuprofen (Ibuprofen 800 Mg Tablet) 800 mg PO Q8H PRN PRN Reason: Pain, Severe (Pain Scale 7-10) Last Admin: 01/07/25 08:26 Dose: 800 mg Magnesium Hydroxide (Milk Of Magnesia 30 Ml Oral.Susp) 30 ml PO DAILY PRN PRN Reason: Constipation Last Admin: 01/06/25 15:08 Dose: 30 ml Nicotine Polacrilex (Nicotine Polacrilex 2 Mg Gum) 4 mg BUCCAL Q2H PRN PRN Reason: Nicotine Cravings Trazodone HCl (Trazodone Hcl 100 Mg Tablet) 100 mg PO BEDTIME [facility] Last Admin: 01/06/25 21:08 Dose: 100 mg Allergies Allergies Allergy/AdvReac Type Severity Reaction Status Date / Time No Known Allergies Allergy Verified 01/03/25 15:02 Assessment & Plan Assessment & Plan (1) Schizoaffective disorder, bipolar type: Status: Acute Code(s): F25.0 - Schizoaffective disorder, bipolar type Plan Patient is a 39-year-old male with history of schizoaffective disorder who presented to ER via ambulance due to suicide ideation with a plan to slit his throat secondary to increased dental pain. Plan: CV 15 minute safety checks obtain collateral Started on antibiotic in ER continue home medications Add: Ibuprophen and Anbesol oral gel encourage groups discharge planning 01/06: Active on unit, keeping to self. medication compliant. patient reports feeling better today; pt stated, I'm not in much pain today from my tooth . He reports sleeping well last night. denies SI/HI/VH/AH. Continue current tx plan. 01/07: Active on unit, keeping to self. attending groups. patient reports feeling better ; he reports some anxiety, plans on going to dentist after discharge. denies SI/HI/VH/AH. per nursing, slept 7 hours. Continue current tx plan. Patient educated on: diagnosis, medication risk/benefits and therapeutic strategies Reason for continued inpatient stay Substantial Risk for: med/psych decompensation Time Spent With Patient Time: Total time managing care of this patient today _20___ minutes.
[2025-01-07] MEDS: Magnesium Hydrox/Alum Hydrox 30 ML ORAL.SUSP PO ×2 (15:53→21:57)
[2025-01-07 20:00] VITALS: BP 120/68; PULSE 88; RESP 16; TEMP 36.8; O2SAT 96
[2025-01-08 07:05] VITALS: BP 116/63; PULSE 81; RESP 16; TEMP 36.7; O2SAT 96
[2025-01-08] MEDS: buPROPion HCl XL 300 MG TAB.ER.24H PO (08:14)
[2025-01-08] MEDS: Benzocaine 20 % Oral Gel 9 GM TUBE 1 APPL MUCOUS MEM ×3 (11:01→17:39)
--- NOTE | 2025-01-08 13:21 | P.PNPSI_ITS ---
Subjective Subjective Date of Service: 01/08/25 Reason For Visit: SI Subjective Notes: Conditional Voluntary Interim History: Active on unit, keeping to self. attending groups. patient reports he was unable to sleep last night but is not clear to reason; pt stated, I wasn't in pain and I wasn't anxious. I just couldn't sleep . Per nursing, pt slept 2 hours last night. He reports feeling sad d/t being in the hospital and being a holiday weekend. Pt stated, It's a holiday and I'm not out and about . denies SI/HI/VH/AH. Continue current tx plan. Medication Compliance: Yes Side effects from medications: No Attending Groups: Yes Mental Status Exam Mental Status Exam Narrative: Pt is alert and oriented; behavior is cooperative and calm; dressed in casual attire; mood is described as good ; eye contact appropriate; Speech is normal rate, volume and not pressured; thought process is organized; Thought content is on tx; denies SI/HI/VH/AH. Diagnostics Vital Signs (24Hr): Vital Signs - 24 hr 01/07/25 20:00 01/08/25 07:05 Temperature 98.2 F 98.1 F Pulse Rate 88 81 Respiratory Rate 16 16 Blood Pressure 120/68 116/63 Pulse Oximetry 96 96 Oxygen Delivery Method Room Air Room Air BMI result Body Mass Index 32.7 Labs 01/03/25 15:32 01/05/25 07:43 Medications Medications Current Medications Acetaminophen (Acetaminophen 325 Mg Tablet) 650 mg PO Q6H PRN PRN Reason: Headache/Pain, Scale 1-10 Last Admin: 01/07/25 21:57 Dose: 650 mg Al Hydroxide/Mg Hydroxide (Magnesium Hydrox/Alum Hydrox 30 Ml Oral.Susp) 30 ml PO Q6H PRN PRN Reason: Heartburn/Nausea Last Admin: 01/07/25 21:57 Dose: 30 ml Aripiprazole (Aripiprazole 10 Mg Tablet) 10 mg PO DAILY [facility] Last Admin: 01/08/25 08:14 Dose: 10 mg Aripiprazole (Aripiprazole Er 400 Mg Suser.Syr) 400 mg IM Q30D [facility] Benzocaine (Benzocaine 20 % Oral Gel 9 Gm Tube) 1 appl MUCOUS MEM QID PRN; Protocol PRN Reason: tooth pain Last Admin: 01/08/25 12:37 Dose: 1 appl Bupropion HCl (Bupropion Hcl Xl 300 Mg Tab.Er.24h) 300 mg PO DAILY [facility] Last Admin: 01/08/25 08:14 Dose: 300 mg Clindamycin HCl (Clindamycin Hcl 150 Mg Capsule) 450 mg PO TID [facility] Stop: 01/08/25 15:01 Last Admin: 01/08/25 08:15 Dose: 450 mg Hydroxyzine HCl (Hydroxyzine Hcl 25 Mg Tablet) 25 mg PO Q6H PRN PRN Reason: mild anxiety Last Admin: 01/08/25 02:20 Dose: 25 mg Ibuprofen (Ibuprofen 800 Mg Tablet) 800 mg PO Q8H PRN PRN Reason: Pain, Severe (Pain Scale 7-10) Last Admin: 01/08/25 10:59 Dose: 800 mg Magnesium Hydroxide (Milk Of Magnesia 30 Ml Oral.Susp) 30 ml PO DAILY PRN PRN Reason: Constipation Last Admin: 01/06/25 15:08 Dose: 30 ml Nicotine Polacrilex (Nicotine Polacrilex 2 Mg Gum) 4 mg BUCCAL Q2H PRN PRN Reason: Nicotine Cravings Trazodone HCl (Trazodone Hcl 100 Mg Tablet) 100 mg PO BEDTIME [facility] Last Admin: 01/07/25 20:09 Dose: 100 mg Trazodone HCl (Trazodone Hcl 50 Mg Tablet) 50 mg PO BEDTIME [facility] PRN PRN Reason: Insomnia Last Admin: 01/08/25 00:19 Dose: 50 mg Allergies Allergies Allergy/AdvReac Type Severity Reaction Status Date / Time No Known Allergies Allergy Verified 01/03/25 15:02 Assessment & Plan Assessment & Plan (1) Schizoaffective disorder, bipolar type: Status: Acute Code(s): F25.0 - Schizoaffective disorder, bipolar type Plan Patient is a 39-year-old male with history of schizoaffective disorder who presented to ER via ambulance due to suicide ideation with a plan to slit his throat secondary to increased dental pain. Plan: CV 15 minute safety checks obtain collateral Started on antibiotic in ER continue home medications Add: Ibuprophen and Anbesol oral gel encourage groups discharge planning 01/06: Active on unit, keeping to self. medication compliant. patient reports feeling better today; pt stated, I'm not in much pain today from my tooth . He reports sleeping well last night. denies SI/HI/VH/AH. Continue current tx plan. 01/07: Active on unit, keeping to self. attending groups. patient reports feeling better ; he reports some anxiety, plans on going to dentist after discharge. denies SI/HI/VH/AH. per nursing, slept 7 hours. Continue current tx plan. 01/08:Active on unit, keeping to self. attending groups. patient reports he was unable to sleep last night but is not clear to reason; pt stated, I wasn't in pain and I wasn't anxious. I just couldn't sleep . Per nursing, pt slept 2 hours last night. He reports feeling sad d/t being in the hospital and being a holiday weekend. Pt stated, It's a holiday and I'm not out and about . denies SI/HI/VH/AH. Continue current tx plan. Patient educated on: diagnosis, medication risk/benefits and therapeutic strategies Reason for continued inpatient stay Substantial Risk for: med/psych decompensation Time Spent With Patient Time: Total time managing care of this patient today _20___ minutes.
[2025-01-08] MEDS: Magnesium Hydrox/Alum Hydrox 30 ML ORAL.SUSP PO (14:58)
[2025-01-08 20:00] VITALS: BP 136/74; PULSE 72; RESP 16; TEMP 36.4; O2SAT 95
[2025-01-09 07:31] VITALS: BP 129/77; PULSE 75; RESP 18; TEMP 36.4; O2SAT 98
[2025-01-09] MEDS: buPROPion HCl XL 300 MG TAB.ER.24H PO (08:17)
[2025-01-09] MEDS: Benzocaine 20 % Oral Gel 9 GM TUBE 1 APPL MUCOUS MEM ×3 (08:28→20:43)
[2025-01-09] MEDS: Magnesium Hydrox/Alum Hydrox 30 ML ORAL.SUSP PO ×2 (09:44→20:42)
--- NOTE | 2025-01-09 11:28 | HO.PSYCHPN ---
Subjective Subjective Date of Service: 01/09/25 Reason For Visit: SI Subjective Notes: Conditional Voluntary Interim History: Active on unit, attending groups. patient reports feeling anxious; focused on tooth discomfort. Patient reports poor sleep last night; per nursing, slept in chair in mileu all night. denies SI/HI/VH/AH. Trazodone increased to 150mg PO bedtime. Medication Compliance: Yes Side effects from medications: No Attending Groups: Yes Mental Status Exam Mental Status Exam Narrative: Pt is alert and oriented; behavior is cooperative and calm; dressed in casual attire; mood is described as anxious ; eye contact appropriate; Speech is normal rate, volume and not pressured; thought process is organized; Thought content is on tx; denies SI/HI/VH/AH. Diagnostics Vital Signs (24Hr): Vital Signs - 24 hr 01/08/25 20:00 01/09/25 07:31 Temperature 97.6 F 97.5 F Pulse Rate 72 75 Respiratory Rate 16 18 Blood Pressure 136/74 129/77 Pulse Oximetry 95 98 Oxygen Delivery Method Room Air Room Air BMI result Body Mass Index 32.7 Labs 01/03/25 15:32 01/05/25 07:43 Medications Medications Current Medications Acetaminophen (Acetaminophen 325 Mg Tablet) 650 mg PO Q6H PRN PRN Reason: Headache/Pain, Scale 1-10 Last Admin: 01/08/25 14:17 Dose: 650 mg Al Hydroxide/Mg Hydroxide (Magnesium Hydrox/Alum Hydrox 30 Ml Oral.Susp) 30 ml PO Q6H PRN PRN Reason: Heartburn/Nausea Last Admin: 01/09/25 09:44 Dose: 30 ml Aripiprazole (Aripiprazole 10 Mg Tablet) 10 mg PO DAILY [facility] Last Admin: 01/09/25 08:17 Dose: 10 mg Aripiprazole (Aripiprazole Er 400 Mg Suser.Syr) 400 mg IM Q30D [facility] Benzocaine (Benzocaine 20 % Oral Gel 9 Gm Tube) 1 appl MUCOUS MEM QID PRN; Protocol PRN Reason: tooth pain Last Admin: 01/09/25 08:28 Dose: 1 appl Bupropion HCl (Bupropion Hcl Xl 300 Mg Tab.Er.24h) 300 mg PO DAILY [facility] Last Admin: 01/09/25 08:17 Dose: 300 mg Hydroxyzine HCl (Hydroxyzine Hcl 25 Mg Tablet) 25 mg PO Q6H PRN PRN Reason: mild anxiety Last Admin: 01/08/25 02:20 Dose: 25 mg Ibuprofen (Ibuprofen 800 Mg Tablet) 800 mg PO Q8H PRN PRN Reason: Pain, Severe (Pain Scale 7-10) Last Admin: 01/09/25 08:16 Dose: 800 mg Magnesium Hydroxide (Milk Of Magnesia 30 Ml Oral.Susp) 30 ml PO DAILY PRN PRN Reason: Constipation Last Admin: 01/06/25 15:08 Dose: 30 ml Nicotine Polacrilex (Nicotine Polacrilex 2 Mg Gum) 4 mg BUCCAL Q2H PRN PRN Reason: Nicotine Cravings Trazodone HCl (Trazodone Hcl 100 Mg Tablet) 100 mg PO BEDTIME [facility] Last Admin: 01/08/25 20:00 Dose: 100 mg Trazodone HCl (Trazodone Hcl 50 Mg Tablet) 50 mg PO BEDTIME MRX1 PRN PRN Reason: Insomnia Last Admin: 01/09/25 00:15 Dose: 50 mg Allergies Allergies Allergy/AdvReac Type Severity Reaction Status Date / Time No Known Allergies Allergy Verified 01/03/25 15:02 Assessment & Plan Assessment & Plan (1) Schizoaffective disorder, bipolar type: Status: Acute Code(s): F25.0 - Schizoaffective disorder, bipolar type Plan Patient is a 39-year-old male with history of schizoaffective disorder who presented to ER via ambulance due to suicide ideation with a plan to slit his throat secondary to increased dental pain. Plan: CV 15 minute safety checks obtain collateral Started on antibiotic in ER continue home medications Add: Ibuprophen and Anbesol oral gel encourage groups discharge planning 01/06: Active on unit, keeping to self. medication compliant. patient reports feeling better today; pt stated, I'm not in much pain today from my tooth . He reports sleeping well last night. denies SI/HI/VH/AH. Continue current tx plan. 01/07: Active on unit, keeping to self. attending groups. patient reports feeling better ; he reports some anxiety, plans on going to dentist after discharge. denies SI/HI/VH/AH. per nursing, slept 7 hours. Continue current tx plan. 01/08:Active on unit, keeping to self. attending groups. patient reports he was unable to sleep last night but is not clear to reason; pt stated, I wasn't in pain and I wasn't anxious. I just couldn't sleep . Per nursing, pt slept 2 hours last night. He reports feeling sad d/t being in the hospital and being a holiday weekend. Pt stated, It's a holiday and I'm not out and about . denies SI/HI/VH/AH. Continue current tx plan. 01/09: Active on unit, attending groups. patient reports feeling anxious; focused on tooth discomfort. Patient reports poor sleep last night; per nursing, slept in chair in mileu all night. denies SI/HI/VH/AH. Trazodone increased to 150mg PO bedtime. Patient educated on: diagnosis, medication risk/benefits and therapeutic strategies Reason for continued inpatient stay Substantial Risk for: med/psych decompensation Time Spent With Patient Time: Total time managing care of this patient today _20___ minutes.
[2025-01-09 20:00] VITALS: BP 117/67; PULSE 79; RESP 16; TEMP 37.8; O2SAT 97
[2025-01-10 07:10] VITALS: BP 116/71; PULSE 76; RESP 14; TEMP 36.6; O2SAT 97
[2025-01-10] MEDS: buPROPion HCl XL 300 MG TAB.ER.24H PO (08:36)
--- NOTE | 2025-01-10 12:43 | P.PNPSI_ITS ---
Subjective Subjective Date of Service: 01/10/25 Reason For Visit: SI Subjective Notes: Conditional Voluntary Interim History: Active on unit, attending groups. patient reports feeling good and ready to return home. He reports sleeping well last night. He reports his tooth pain has decreased. denies SI/HI/VH/AH. Plan to discharge Wednesday if continues to improve; pt aware. Medication Compliance: Yes Side effects from medications: No Attending Groups: Yes Mental Status Exam Mental Status Exam Narrative: Pt is alert and oriented; behavior is cooperative and calm; dressed in casual attire; mood is described as good ; eye contact appropriate; Speech is normal rate, volume and not pressured; thought process is organized; Thought content is on discharge; denies SI/HI/VH/AH. Diagnostics Vital Signs (24Hr): Vital Signs - 24 hr 01/09/25 20:00 01/10/25 07:10 Temperature 100.1 F 97.9 F Pulse Rate 79 76 Respiratory Rate 16 14 Blood Pressure 117/67 116/71 Pulse Oximetry 97 97 Oxygen Delivery Method Room Air Room Air BMI result Body Mass Index 32.7 Labs 01/03/25 15:32 01/05/25 07:43 Medications Medications Current Medications Acetaminophen (Acetaminophen 325 Mg Tablet) 650 mg PO Q6H PRN PRN Reason: Headache/Pain, Scale 1-10 Last Admin: 01/08/25 14:17 Dose: 650 mg Al Hydroxide/Mg Hydroxide (Magnesium Hydrox/Alum Hydrox 30 Ml Oral.Susp) 30 ml PO Q6H PRN PRN Reason: Heartburn/Nausea Last Admin: 01/09/25 20:42 Dose: 30 ml Aripiprazole (Aripiprazole 10 Mg Tablet) 10 mg PO DAILY [facility] Last Admin: 01/10/25 08:36 Dose: 10 mg Aripiprazole (Aripiprazole Er 400 Mg Suser.Syr) 400 mg IM Q30D [facility] Benzocaine (Benzocaine 20 % Oral Gel 9 Gm Tube) 1 appl MUCOUS MEM QID PRN; Protocol PRN Reason: tooth pain Last Admin: 01/09/25 20:43 Dose: 1 appl Bupropion HCl (Bupropion Hcl Xl 300 Mg Tab.Er.24h) 300 mg PO DAILY [facility] Last Admin: 01/10/25 08:36 Dose: 300 mg Hydroxyzine HCl (Hydroxyzine Hcl 25 Mg Tablet) 25 mg PO Q6H PRN PRN Reason: mild anxiety Last Admin: 01/08/25 02:20 Dose: 25 mg Ibuprofen (Ibuprofen 800 Mg Tablet) 800 mg PO Q8H PRN PRN Reason: Pain, Severe (Pain Scale 7-10) Last Admin: 01/10/25 12:27 Dose: 800 mg Magnesium Hydroxide (Milk Of Magnesia 30 Ml Oral.Susp) 30 ml PO DAILY PRN PRN Reason: Constipation Last Admin: 01/06/25 15:08 Dose: 30 ml Nicotine Polacrilex (Nicotine Polacrilex 2 Mg Gum) 4 mg BUCCAL Q2H PRN PRN Reason: Nicotine Cravings Trazodone HCl (Trazodone Hcl 50 Mg Tablet) 50 mg PO BEDTIME MRX1 PRN PRN Reason: Insomnia Last Admin: 01/09/25 00:15 Dose: 50 mg Trazodone HCl (Trazodone Hcl 50 Mg Tablet) 150 mg PO BEDTIME [facility] Last Admin: 01/09/25 20:32 Dose: 150 mg Allergies Allergies Allergy/AdvReac Type Severity Reaction Status Date / Time No Known Allergies Allergy Verified 01/03/25 15:02 Assessment & Plan Assessment & Plan (1) Schizoaffective disorder, bipolar type: Status: Acute Code(s): F25.0 - Schizoaffective disorder, bipolar type Plan Patient is a 39-year-old male with history of schizoaffective disorder who presented to ER via ambulance due to suicide ideation with a plan to slit his throat secondary to increased dental pain. Plan: CV 15 minute safety checks obtain collateral Started on antibiotic in ER continue home medications Add: Ibuprophen and Anbesol oral gel encourage groups discharge planning 01/06: Active on unit, keeping to self. medication compliant. patient reports feeling better today; pt stated, I'm not in much pain today from my tooth . He reports sleeping well last night. denies SI/HI/VH/AH. Continue current tx plan. 01/07: Active on unit, keeping to self. attending groups. patient reports feeling better ; he reports some anxiety, plans on going to dentist after discharge. denies SI/HI/VH/AH. per nursing, slept 7 hours. Continue current tx plan. 01/08:Active on unit, keeping to self. attending groups. patient reports he was unable to sleep last night but is not clear to reason; pt stated, I wasn't in pain and I wasn't anxious. I just couldn't sleep . Per nursing, pt slept 2 hours last night. He reports feeling sad d/t being in the hospital and being a holiday weekend. Pt stated, It's a holiday and I'm not out and about . denies SI/HI/VH/AH. Continue current tx plan. 01/09: Active on unit, attending groups. patient reports feeling anxious; focused on tooth discomfort. Patient reports poor sleep last night; per nursing, slept in chair in mileu all night. denies SI/HI/VH/AH. Trazodone increased to 150mg PO bedtime. 01/10: Active on unit, attending groups. patient reports feeling good and ready to return home. He reports sleeping well last night. He reports his tooth pain has decreased. denies SI/HI/VH/AH. Plan to discharge Wednesday if continues to improve; pt aware. Patient educated on: diagnosis, medication risk/benefits and therapeutic strategies Reason for continued inpatient stay Substantial Risk for: med/psych decompensation Time Spent With Patient Time: Total time managing care of this patient today _20___ minutes.
[2025-01-10 19:40] VITALS: BP 157/77; PULSE 98; RESP 16; TEMP 36.9; O2SAT 95
[2025-01-10] MEDS: Benzocaine 20 % Oral Gel 9 GM TUBE 1 APPL MUCOUS MEM (19:44)
[2025-01-10] MEDS: Magnesium Hydrox/Alum Hydrox 30 ML ORAL.SUSP PO (20:42)
--- NOTE | 2025-01-11 | ECG_ITS ---
Test Reason : jaw pain Blood Pressure : */* mmHG Vent. Rate : 78 BPM Atrial Rate : 78 BPM P-R Int : 172 ms QRS Dur : 94 ms QT Int : 390 ms P-R-T Axes : 29 25 37 degrees QTcB Int : 444 ms Normal sinus rhythm Normal ECG When compared with ECG of 04-Jan-2025 08:12, No significant change was found Referred By: Gina Gomez Electronically Signed By: Cheikh Anaya
[2025-01-11 08:00] VITALS: BP 114/68; PULSE 77; RESP 20; TEMP 36.4; O2SAT 98
[2025-01-11] MEDS: buPROPion HCl XL 300 MG TAB.ER.24H PO (08:36)
[2025-01-11] MEDS: Benzocaine 20 % Oral Gel 9 GM TUBE 1 APPL MUCOUS MEM ×3 (08:45→22:50)
--- NOTE | 2025-01-11 09:43 | P.PNPSI_ITS ---
Subjective Subjective Date of Service: 01/11/25 Reason For Visit: SI Subjective Notes: Conditional Voluntary Interim History: Active on unit, attending groups. patient continues to report feeling good and ready to return home. denies SI/HI/VH/AH. Patient reports he plans on following up with outpatient providers when discharged. Medication Compliance: Yes Side effects from medications: No Attending Groups: Yes Mental Status Exam Mental Status Exam Narrative: Pt is alert and oriented; behavior is cooperative and calm; dressed in casual attire; mood is described as good ; eye contact appropriate; Speech is normal rate, volume and not pressured; thought process is organized; Thought content is on discharge; denies SI/HI/VH/AH. Diagnostics Vital Signs (24Hr): Vital Signs - 24 hr 01/10/25 19:40 01/11/25 08:00 Temperature 98.5 F 97.6 F Pulse Rate 98 77 Respiratory Rate 16 20 Blood Pressure 157/77 H 114/68 Pulse Oximetry 95 98 Oxygen Delivery Method Room Air Room Air BMI result Body Mass Index 32.7 Labs 01/03/25 15:32 01/05/25 07:43 Medications Medications Current Medications Acetaminophen (Acetaminophen 325 Mg Tablet) 650 mg PO Q6H PRN PRN Reason: Headache/Pain, Scale 1-10 Last Admin: 01/11/25 08:37 Dose: 650 mg Al Hydroxide/Mg Hydroxide (Magnesium Hydrox/Alum Hydrox 30 Ml Oral.Susp) 30 ml PO Q6H PRN PRN Reason: Heartburn/Nausea Last Admin: 01/10/25 20:42 Dose: 30 ml Aripiprazole (Aripiprazole 10 Mg Tablet) 10 mg PO DAILY [facility] Last Admin: 01/11/25 08:36 Dose: 10 mg Aripiprazole (Aripiprazole Er 400 Mg Suser.Syr) 400 mg IM Q30D [facility] Benzocaine (Benzocaine 20 % Oral Gel 9 Gm Tube) 1 appl MUCOUS MEM QID PRN; Protocol PRN Reason: tooth pain Last Admin: 01/11/25 08:45 Dose: 1 appl Bupropion HCl (Bupropion Hcl Xl 300 Mg Tab.Er.24h) 300 mg PO DAILY [facility] Last Admin: 01/11/25 08:36 Dose: 300 mg Hydroxyzine HCl (Hydroxyzine Hcl 25 Mg Tablet) 25 mg PO Q6H PRN PRN Reason: mild anxiety Last Admin: 01/08/25 02:20 Dose: 25 mg Ibuprofen (Ibuprofen 800 Mg Tablet) 800 mg PO Q8H PRN PRN Reason: Pain, Severe (Pain Scale 7-10) Last Admin: 01/11/25 04:57 Dose: 800 mg Magnesium Hydroxide (Milk Of Magnesia 30 Ml Oral.Susp) 30 ml PO DAILY PRN PRN Reason: Constipation Last Admin: 01/06/25 15:08 Dose: 30 ml Nicotine Polacrilex (Nicotine Polacrilex 2 Mg Gum) 4 mg BUCCAL Q2H PRN PRN Reason: Nicotine Cravings Trazodone HCl (Trazodone Hcl 50 Mg Tablet) 50 mg PO BEDTIME MRX1 PRN PRN Reason: Insomnia Last Admin: 01/11/25 01:48 Dose: 50 mg Trazodone HCl (Trazodone Hcl 50 Mg Tablet) 150 mg PO BEDTIME [facility] Last Admin: 01/10/25 20:42 Dose: 150 mg Allergies Allergies Allergy/AdvReac Type Severity Reaction Status Date / Time No Known Allergies Allergy Verified 01/03/25 15:02 Assessment & Plan Assessment & Plan (1) Schizoaffective disorder, bipolar type: Status: Acute Code(s): F25.0 - Schizoaffective disorder, bipolar type Plan Patient is a 39-year-old male with history of schizoaffective disorder who presented to ER via ambulance due to suicide ideation with a plan to slit his throat secondary to increased dental pain. Plan: CV 15 minute safety checks obtain collateral Started on antibiotic in ER continue home medications Add: Ibuprophen and Anbesol oral gel encourage groups discharge planning 01/06: Active on unit, keeping to self. medication compliant. patient reports feeling better today; pt stated, I'm not in much pain today from my tooth . He reports sleeping well last night. denies SI/HI/VH/AH. Continue current tx plan. 01/07: Active on unit, keeping to self. attending groups. patient reports feeling better ; he reports some anxiety, plans on going to dentist after discharge. denies SI/HI/VH/AH. per nursing, slept 7 hours. Continue current tx plan. 01/08:Active on unit, keeping to self. attending groups. patient reports he was unable to sleep last night but is not clear to reason; pt stated, I wasn't in pain and I wasn't anxious. I just couldn't sleep . Per nursing, pt slept 2 hours last night. He reports feeling sad d/t being in the hospital and being a holiday weekend. Pt stated, It's a holiday and I'm not out and about . denies SI/HI/VH/AH. Continue current tx plan. 01/09: Active on unit, attending groups. patient reports feeling anxious; focused on tooth discomfort. Patient reports poor sleep last night; per nursing, slept in chair in mileu all night. denies SI/HI/VH/AH. Trazodone increased to 150mg PO bedtime. 01/10: Active on unit, attending groups. patient reports feeling good and ready to return home. He reports sleeping well last night. He reports his tooth pain has decreased. denies SI/HI/VH/AH. Plan to discharge Wednesday if continues to improve; pt aware. 01/11: Active on unit, attending groups. patient continues to report feeling good and ready to return home. denies SI/HI/VH/AH. Patient reports he plans on following up with outpatient providers when discharged. Patient educated on: diagnosis and medication risk/benefits Reason for continued inpatient stay Substantial Risk for: stable for discharge Time Spent With Patient Time: Total time managing care of this patient today _20___ minutes.
[2025-01-11] MEDS: Magnesium Hydrox/Alum Hydrox 30 ML ORAL.SUSP PO (09:45)
[2025-01-11 13:17] VITALS: BMI 33.5
[2025-01-11 19:25] VITALS: BP 117/80; PULSE 97; RESP 17; TEMP 36.7; O2SAT 96
[2025-01-11 22:13] LABS: Troponin-I High Sensitivity < 2.7 ng/L (<3.5-35.0)
--- NOTE | 2025-01-12 06:34 | HO.PM.IMCN ---
History of Present Illness Data of Consult Service Date: 01/12/25 Requesting physician: Gina Gomez Primary Care Provider: Unknown Physician HPI Reason for consult: Left mandibular/teeth pain Juan Case is a 39 years old man that has been admitted to the psychiatric service due to suicide ideation. He has been complaining of left mandible/teeth pain for awhile. He denied fever or chills. He completed an course of clindamycin. Last blood workup done on January 03 and showed no leukocytosis. Review of Systems Review of Systems: Yes all other systems are reviewed and are negative [facility] Medical History Schizoaffective disorder, bipolar type Social History Household Members: None Housing: Apartment Housing Other:: [facility] Do you presently have visiting nurse or other home services: No Alcohol intake: former Patient Tobacco Use Status: Never used Tobacco Smoked in Last 30 Days: No e-Cigarette/Vaping Use: Never Used Currently Displaying Signs/Symptoms of Drug Intoxication Withdrawal: No Have you been hit, kicked, punched, or otherwise hurt by someone within the past year? If so, by whom?: No Do you feel safe in your current relationship?: No Current Relationship Is there a partner from a previous relationship who is making you feel unsafe now?: No Are you made to feel afraid or neglected: No Advance Directives: No Advance Directives Information Provided: No Do you have thoughts of harming others: None Do you have a plan to hurt others: No Plan Recently lost weight without trying: Yes How much weight loss: 14-23 pounds Eating poorly because of decreased appetite: Yes Nutrition screen score: 5 Poor oral hygiene: Yes service: No Sexual orientation: Straight/Heterosexual Meds Allergies Allergy/AdvReac Type Severity Reaction Status Date / Time No Known Allergies Allergy Verified 01/03/25 15:02 Active Medications: Current Medications Acetaminophen (Acetaminophen 325 Mg Tablet) 650 mg PO Q6H PRN PRN Reason: Headache/Pain, Scale 1-10 Last Admin: 01/12/25 01:53 Dose: 650 mg Al Hydroxide/Mg Hydroxide (Magnesium Hydrox/Alum Hydrox 30 Ml Oral.Susp) 30 ml PO Q6H PRN PRN Reason: Heartburn/Nausea Last Admin: 01/11/25 09:45 Dose: 30 ml Amoxicillin/Clavulanate Potassium (Amoxicillin/Potassium Clav 875 Mg Tablet) 875 mg PO Q12H [facility] Aripiprazole (Aripiprazole 10 Mg Tablet) 10 mg PO DAILY [facility] Last Admin: 01/11/25 08:36 Dose: 10 mg Aripiprazole (Aripiprazole Er 400 Mg Suser.Syr) 400 mg IM Q30D [facility] Benzocaine (Benzocaine 20 % Oral Gel 9 Gm Tube) 1 appl MUCOUS MEM QID PRN; Protocol PRN Reason: tooth pain Last Admin: 01/11/25 22:50 Dose: 1 appl Bupropion HCl (Bupropion Hcl Xl 300 Mg Tab.Er.24h) 300 mg PO DAILY [facility] Last Admin: 01/11/25 08:36 Dose: 300 mg Hydroxyzine HCl (Hydroxyzine Hcl 25 Mg Tablet) 25 mg PO Q6H PRN PRN Reason: mild anxiety Last Admin: 01/08/25 02:20 Dose: 25 mg Ibuprofen (Ibuprofen 800 Mg Tablet) 800 mg PO Q8H PRN PRN Reason: jaw pain Last Admin: 01/11/25 18:45 Dose: 800 mg Magnesium Hydroxide (Milk Of Magnesia 30 Ml Oral.Susp) 30 ml PO DAILY PRN PRN Reason: Constipation Last Admin: 01/06/25 15:08 Dose: 30 ml Nicotine Polacrilex (Nicotine Polacrilex 2 Mg Gum) 4 mg BUCCAL Q2H PRN PRN Reason: Nicotine Cravings Trazodone HCl (Trazodone Hcl 50 Mg Tablet) 50 mg PO BEDTIME MRX1 PRN PRN Reason: Insomnia Last Admin: 01/12/25 01:53 Dose: 50 mg Trazodone HCl (Trazodone Hcl 50 Mg Tablet) 150 mg PO BEDTIME [facility] Last Admin: 01/11/25 22:07 Dose: 150 mg Physical Exam Vital Signs and Narrative: Vital Signs: Last Vital Signs Temp 98.1 F 01/11/25 19:25 Pulse 97 01/11/25 19:25 Resp 17 01/11/25 19:25 BP 117/80 01/11/25 19:25 Pulse Ox 96 01/11/25 19:25 O2 Del Method Room Air 01/11/25 19:25 BMI result Body Mass Index 33.5 HEENT: Mouth exam: Poor dentition: There is tenderness to the left lower teeth without discharges. Gum is erythematous. Results Labs 01/03/25 15:32 01/05/25 07:43 Assessment and Plan (1) Pain, dental: Status: Acute (2) Suicidal ideation: Status: Acute Plan Juan Case is a 39 y/o man with very poor dentition complaining of: Left mandibular/teeth pain. Completed a course of clindamycin. Start treatment with Augmentin 875 mg p.o. b.i.d. X7 days. Check CBC and CRP. Obtain neck soft tissue CT scan with IV contrast to assess for odontogenic infection. If no abscesses, complete course of Augmentin and refer patient to a dentist.
[2025-01-12 07:05] VITALS: BP 122/76; PULSE 88; RESP 14; TEMP 36.5; O2SAT 97
[2025-01-12 07:51] LABS: MANUAL DIFF FLAG NO
[2025-01-12 07:57] LABS: Hematocrit 43.3 % (42.0-52.0); Hemoglobin 14.9 g/dl (14.0-18.0); Imm Gran Abs Auto 0.02 X10*3/uL (0.00-0.03); Imm Gran Pct Auto 0.3 % (0.0-0.4); Lymphocytes Absolute Auto 2.1 X10*3/uL (1.2-4.9); Mean Corpuscular HGB Conc 34.4 g/dl (31.0-36.0); Mean Corpuscular Hemoglobin 29.0 pg (27.0-33.0); Mean Corpuscular Volume 84.2 fL (80.0-98.0); NRBC Abs Auto 0.000 X10*3/uL (0.0-0.012); NRBC Pct Auto 0.0 /100WBC (0.0-0.2); Platelet Count 243 X10*3/uL (160-400); Red Blood Count 5.14 X10*6/uL (4.60-5.80); White Blood Count 7.1 X10*3/uL (4.8-10.8)
[2025-01-12] MEDS: buPROPion HCl XL 300 MG TAB.ER.24H PO (09:06)
[2025-01-12] MEDS: Magnesium Hydrox/Alum Hydrox 30 ML ORAL.SUSP PO (09:06)
[2025-01-12] MEDS: iohexoL 350 MG/ML 100 ML INFUS..BTL IV (09:22)
--- NOTE | 2025-01-12 09:46 | PM.PSYDC ---
DS: Providers Provider Date of Service: 01/12/25 Date of admission: 01/04/25 12:08 Date of discharge: 01/12/25 Primary care physician: Unknown Physician Admitting clinician: Marily Marcum Attending physician on admission: Gary Emerson Consults: 01/11/25 20:30 Consult to Hospitalist Routine Comment: Consulting Provider: [facility] Reason For Exam: severe lower jaw pain for days. ? infection Attending physician on discharge: Gary Emerson Discharging clinician: Marily Marcum DS: Diagnosis Discharge Diagnosis (1) Pain, dental: Status: Acute (2) Suicidal ideation: Status: Acute DS: Medications Discharge Medications Home Medications: Previous Rx's ?Medication ?Instructions ?Recorded aripiprazole 400 mg suspension, 400 mg IM Q28D 24 days #1 ea 02/16/24 extended rel.intramuscular syringe (Abilify Maintena) aripiprazole 10 mg tablet (Abilify) 10 mg PO DAILY 7 days #7 tabs 08/17/24 bupropion HCl 300 mg 24 hr tablet, 300 mg PO DAILY 30 days #30 tabs 08/17/24 extended release trazodone 150 mg tablet 150 mg PO BEDTIME 30 days #30 tabs 01/11/25 Mental Status Exam Mental Status Exam Narrative: Pt is alert and oriented; behavior is cooperative and calm; dressed in casual attire; mood is described as good ; eye contact appropriate; Speech is normal rate, volume and not pressured; thought process is organized; Thought content is on discharge; denies SI/HI/VH/AH. Data Data Completed and Pending Completed studies during hospitalization [Text1]: 01/11/25 01/12/25 21:45 07:39 WBC 7.1 RBC 5.14 Hgb 14.9 Hct 43.3 MCV 84.2 MCH 29.0 MCHC 34.4 RDW 13.2 Plt Count 243 MPV 8.2 L Immature Gran % (Auto) 0.3 Neut % (Auto) 58.6 Lymph % (Auto) 28.9 [place] % (Auto) 7.6 Eos % (Auto) 4.2 H Baso % (Auto) 0.4 Lymph # (Auto) 2.1 [place] # (Auto) 0.5 Eos # (Auto) 0.3 Baso # (Auto) 0.0 Abs Immat Gran (auto) 0.02 Absolute Neuts (auto) 4.2 Absolute Nucleated RBC 0.000 Nucleated RBC % (auto) 0.0 Troponin I High Sens < 2.7 C-Reactive Protein < 0.10 Imaging Diagnostic Imaging Impressions Soft Tissue Neck CT 01/12/25 08:34 IMPRESSION: 1. Maxillary and mandibular carious lesions without periapical lucencies. There are no cortical erosions. There is no evidence of odontogenic abscess or soft tissue swelling. 2. Remainder of the neck is normal in appearance. There is no mass or lymphadenopathy present. Electronically signed by: Shane Connloly MD 01/12/2025 09:38 AM EDT RP DS: Summary Hospital Course Hospital Course: Patient is a 39-year-old male with history of schizoaffective disorder who presented to ER via ambulance due to suicide ideation with a plan to slit his throat secondary to increased dental pain. Per crisis report, patient reported this has been going on for the past several days. Patient reported worsening depression, hopelessness and suicidal ideation with plan. Patient reported the dental pain is what has reportedly caused these emotions. Patient's tool maintenance worker reported patient has been responding to internal stimuli and reported it increases when patient is unwell. Patient reported increased depression due to jaw pain; patient was given medication and does not have pain currently. Patient reported experiencing auditory and visual hallucinations between the hours of 10pm and 2am . He denies HI. He reports poor sleep and appetite. Did not appear to be responding to internal stimuli during assessment. During admission assessment, patient presents alert and oriented x3. Calm and cooperative. Patient reports feeling okay today; patient stated, the tooth ache made me suicidal. The pain is still there but it's a 1 or 2 now, before it was a 10. The antibiotic and Tylenol are helping . Patient reports being medication compliant at home; He reports having a VNA who visits him daily. Patient denies SI/HI/VH/AH. Patient reports he wants to be in the hospital so he can learn how to cope with pain . Patient reports his sleep and appetite are decent. Patient reports having a prescriber through [facility] but he does not have a therapist and states that he is interested in having one. Plan: CV 15 minute safety checks obtain collateral Started on antibiotic in ER continue home medications Add: Ibuprophen and Anbesol oral gel encourage groups discharge planning Active on unit, keeping to self. medication compliant. patient reports feeling better today; pt stated, I'm not in much pain today from my tooth . He reports sleeping well last night. denies SI/HI/VH/AH. Continue current tx plan. Active on unit, keeping to self. attending groups. patient reports feeling better ; he reports some anxiety, plans on going to dentist after discharge. denies SI/HI/VH/AH. per nursing, slept 7 hours. Continue current tx plan. Active on unit, keeping to self. attending groups. patient reports he was unable to sleep last night but is not clear to reason; pt stated, I wasn't in pain and I wasn't anxious. I just couldn't sleep . Per nursing, pt slept 2 hours last night. He reports feeling sad d/t being in the hospital and being a holiday weekend. Pt stated, It's a holiday and I'm not out and about . denies SI/HI/VH/AH. Continue current tx plan. Active on unit, attending groups. patient reports feeling anxious; focused on tooth discomfort. Patient reports poor sleep last night; per nursing, slept in chair in mile[place] all night. denies SI/HI/VH/AH. Trazodone increased to 150mg PO bedtime. Active on unit, attending groups. patient reports feeling good and ready to return home. He reports sleeping well last night. He reports his tooth pain has decreased. denies SI/HI/VH/AH. Plan to discharge Wednesday if continues to improve; pt aware. Active on unit, attending groups. patient continues to report feeling good and ready to return home. denies SI/HI/VH/AH. Patient was seen by hospitalist for tooth pain again;pt see note. Patient reports he plans on following up with outpatient providers when discharged. Status at Discharge Cognitive/behavioral status at discharge: Patient has insight and demonstrates good judgment in terms of wanting to pursue treatment. Patient has a safety plan that includes presenting to the closest ER or calling 911 if feeling unsafe. Functional status at discharge: independent ambulation Overall status at discharge: patient is back to baseline Time Spent with Patient Time attestation: Total time managing care of this patient today _20___ minutes. Time spent: Less than 30 minutes Discharge Plan Discharge Anticipated Discharge Date/Time: 01/12/25 09:47 Patient Disposition: Home, Self-Care Discharge Diagnosis: Schizoaffective d/o Referrals: Karol Waldrop ([facility] provider) [Other] - 01/23/25 11:00 am Referral Note: in person appointment [facility] [Provider Group] - 1 Week Referral Note: 01-11-25 [facility] was added to patients chart. Please call [phone] to schedule a follow up appt within 7-10 days of discharge. Patient signed release for [facility] but they state he is not a patient and will have to call to establish with them. Discharge Medications: New trazodone 150 mg tablet 150 mg PO BEDTIME 30 Days Qty: 30 0RF amoxicillin-pot clavulanate 875-125 mg Tablet 1 tab PO Q12H 7 Days Qty: 14 0RF Continued Abilify Maintena 400 mg suspension,extended rel syring 400 mg IM Q28D 24 Days Qty: 1 0RF Rx Instructions: last received 02/11/24 bupropion HCl 300 mg Tablet Extended Release 24 Hr 300 mg PO DAILY 30 Days Qty: 30 0RF aripiprazole [Abilify] 10 mg tablet 10 mg PO DAILY 7 Days Qty: 7 0RF Rx Instructions: take 1 tab daily during week prior to getting [place] Maintenna Discontinued trazodone 100 mg Tablet 100 mg PO BEDTIME 30 Days Qty: 30 0RF Discharge Orders: Discharge Order (Routine); Ordered 01/12/25 Ordered By: Marily Marcum Diet: Regular diet Activity on Discharge: As tolerated Stand Alone Forms: Patient Portal Discharge page, Community Support Print Language: Andorran Care Plan Goals: Maintain mood and safe behaviors Take medications as prescribed Practice coping skills Continue with outpatient providers and reach out to them as needed Health Concerns: Mood stability and behaviors Plan of Treatment: Follow up with your PCP, psychiatric provider and other outpatient providers regarding above concerns Take medications as prescribed Assessment: Patient has insight and demonstrates good judgment in terms of wanting to pursue treatment. Patient has a safety plan that includes presenting to the closest ER or calling 911 if feeling unsafe. Discharge Date/Time: 01/12/25 11:08
--- NOTE | 2025-01-12 12:09 | PM.EVENT ---
Event Note Date of Service: 01/12/25 Event Note: Labs reviewed, head CT reviewed, no acute findings. Patient discharged to home prior to follow up examination. Time Spent With Patient Time: Total time managing care of this patient today ____ minutes.
== END 2025-01-12 11:08 | disposition home or self-care (01) | DRG 885 ==
LOC: HO.ED 15:45 → HO.PADLT16 01-04 12:11
PROVIDERS: Internal Medicine; Admitting Provider Registered Nurse; Emergency Provider Emergency Medicine; Responsible Provider Registered Nurse; Visit Provider Psychiatry & Neurology Psychiatry
DX: F25.0 Schizoaffective disorder, bipolar type (principal); R45.851 Suicidal ideations; Z79.899 Other long term (current) drug therapy
CPT/HCPCS: 36415; 70491; 80053; 80061; 80143; 80179; 80307; 81003; 83036; 84484; 85025; 86140; 93005; 99285; Q9967; S9485

== ENCOUNTER → 2025-01-04 07:57 | Outpatient (BNV) | payer OTHER, SELFPAY | PROVIDERS: Admitting Provider Registered Nurse; Emergency Provider Emergency Medicine; Responsible Provider Registered Nurse; Visit Provider Internal Medicine | DX: Z13.6 Encounter for screening for cardiovascular disorders (principal) | CPT/HCPCS: 93010 ==

== ENCOUNTER 2025-01-04 12:08 | Outpatient (BNV) | payer OTHER, SELFPAY | END 2025-01-11 22:00 | PROVIDERS: Admitting Provider Registered Nurse; Emergency Provider Emergency Medicine; Responsible Provider Registered Nurse; Visit Provider Internal Medicine Cardiovascular Disease | DX: R68.84 Jaw pain (principal) | CPT/HCPCS: 93010 ==

== ENCOUNTER 2025-01-04 12:08 | Outpatient (BNV) | payer OTHER, SELFPAY | END 2025-01-12 08:34 | PROVIDERS: Admitting Provider Registered Nurse; Emergency Provider Emergency Medicine; Responsible Provider Registered Nurse; Visit Provider Radiology Diagnostic Radiology | DX: J32.0 Chronic maxillary sinusitis (principal) | CPT/HCPCS: 70491 ==

== ENCOUNTER → 2025-01-04 12:08 | Outpatient (BNV) | payer OTHER, SELFPAY | PROVIDERS: Admitting Provider Registered Nurse; Emergency Provider Emergency Medicine; Responsible Provider Registered Nurse; Visit Provider Internal Medicine | DX: K08.89 Other specified disorders of teeth and supporting structures (principal); R45.851 Suicidal ideations | CPT/HCPCS: 99221; 99499 ==

== ENCOUNTER → 2025-01-04 12:08 | Outpatient (BNV) | payer OTHER, SELFPAY | PROVIDERS: Admitting Provider Registered Nurse; Emergency Provider Emergency Medicine; Responsible Provider Registered Nurse; Visit Provider Registered Nurse | DX: F25.0 Schizoaffective disorder, bipolar type (principal) | CPT/HCPCS: 90792; 99231; 99232 ==

== ENCOUNTER 2025-02-22 10:27 | Inpatient (IN) | payer OTHER, SELFPAY ==
[2025-02-22 10:34] VITALS: BMI 27.3
[2025-02-22 10:38] VITALS: BP 131/67; PULSE 127; RESP 19; TEMP 36.9; O2SAT 96
--- NOTE | 2025-02-22 10:54 | MHC.EDTECH ---
Addendum entered by [place] Billy 02/22/25 10:56: Rn aware Original Note: Patient unable to provide urine sample at this time. Urine cup provided to patient and patient aware to provide sample as soon as possible. Patient given water and gingerale.
--- NOTE | 2025-02-22 11:02 | ECG_ITS ---
Test Reason : SOB Blood Pressure : */* mmHG Vent. Rate : 85 BPM Atrial Rate : 85 BPM P-R Int : 174 ms QRS Dur : 98 ms QT Int : 376 ms P-R-T Axes : 35 11 26 degrees QTcB Int : 447 ms Normal sinus rhythm Nonspecific ST abnormality Abnormal ECG When compared with ECG of 11-Jan-2025 22:00, No significant change was found Referred By: Ashlyn Jean-Baptiste Electronically Signed By: Cheikh Anaya
--- NOTE | 2025-02-22 11:02 | ED.PSYCH ---
HPI - Psych General Chief Complaint: Psychiatric Symptoms Stated Complaint: SI Time Seen by Provider: 02/22/25 10:33 Source: patient Mode of arrival: ambulatory Limitations: no limitations History of Present Illness ED Provider: Ashlyn Jean-Baptiste PA-C HPI Narrative: Patient presents to the emergency department today with suicidal ideation of wanting to cut his throat for a plan. He reports having anhedonia for this past week along with no appetite for the last 3 days. Past medical history significant for depression schizoaffective disorder and anxiety. He is denying any HI and has no audio hallucinations but does report sometimes seeing things that he does not want to elaborate on. He has never attempted per him to self-harm before in the past but has thought about it. He denies any headaches dizziness or visual changes. He is endorsing nasal congestion and dry cough that started this morning but otherwise no shortness of breath, abdominal pain or nausea or vomiting no diarrhea no fevers and no chills. Reports he has just been drinking fluids and voiding but otherwise no appetite. He endorses the lack of appetite more so due to his mental health rather than from an infectious etiology. Patient has had to be hospitalized for this before in the past he reports last time being admitted here was 1 month ago for the same reason. MD complaint: suicidal ideation History of same: Yes Relieving factors: none Related Data Previous Rx's ?Medication ?Instructions ?Recorded aripiprazole 400 mg suspension, 400 mg IM Q28D 24 days #1 ea 02/16/24 extended rel.intramuscular syringe (Christen Merida) bupropion HCl 300 mg 24 hr tablet, 300 mg PO DAILY 30 days #30 tabs 08/17/24 extended release trazodone 150 mg tablet 150 mg PO BEDTIME 30 days #30 tabs 01/11/25 Allergies Allergy/AdvReac Type Severity Reaction Status Date / Time No Known Allergies Allergy Verified 02/22/25 10:38 Review of Systems Review of Systems: Yes all other systems are reviewed and are negative PMFSH Past Medical History Attestation statement: The following information was validated with the patient. Source: old records reviewed and nursing notes reviewed Medical History Pain, dental Suicidal ideation Schizoaffective disorder, bipolar type Social History Social History Household Members: None Housing: Apartment Housing Other:: [facility] Do you presently have visiting nurse or other home services: No Alcohol intake: former Patient Tobacco Use Status: Never used Tobacco e-Cigarette/Vaping Use: Never Used Advance Directives: No Advance Directives Information Provided: Yes Do you have a plan to hurt others: No Plan service: No Sexual orientation: Straight/Heterosexual Physical Exam Exam: Exam: General: Appears in no acute distress, appears well nourished body habitus is obese, appears stated age. No septic or ill-appearing. Vitals reviewed normal, PMH/Social and Surgical hx reviewed including allergies and current medications. - reviewed for prior visits here and red as it pertains to similar chief complaint. Head: Normocephalic, no obvious trauma or skin lesions noted. Eyes: EOMI, no scleral icterus no injection ENMT: moist oral mucosa, uvula is midline no trismus, no lymphadenopathy Neck: trachea midline Cardiovascular: peripheral perfusion normal, Regular heart rate regular rhythm Respiratory: no respiratory distress lungs clear to auscultation bilaterally no chest wall tenderness Abdomen: nondistended Extremities: warm and moving without difficulty Psych: Cooperative flat affect Neuro: Alert and oriented. Vital Signs: Vital Signs: Last Vital Signs Temp 98.5 F 02/22/25 10:38 Pulse 127 H 02/22/25 10:38 Resp 19 02/22/25 10:38 BP 131/67 02/22/25 10:38 Pulse Ox 96 02/22/25 10:38 O2 Del Method Room Air 02/22/25 10:38 BMI result Body Mass Index 27.3 Medications Administered Generic Name Dose Route Start Last Admin Trade Name Freq PRN Reason Stop Dose Admin Bupropion HCl 300 mg 02/22/25 11:10 02/22/25 13:08 Bupropion Hcl Xl 300 Mg Tab.Er.24h PO 300 mg DAILY SERGIO Administration Medical Decision Making Medical Decision Making MDM Narrative: 39 y/o M with hx of schizoaffective disorder brings himself to the emergency department today for concern of suicide ideations with plan to cut his own throat. Patient and physical as above. Upon arrival to ED he is afebrile with a benign normal exam given his complaint of a cough that started just when he got here but COVID swab was ordered along with a crisis lab workup but I anticipate likely physical clearance with anticipation for psychiatric evaluation. Patient is medically cleared. 1317: Patient had psychiatric consult they were recommending a an inpatient level of care he will be placed in Phys observation pending pyshicatic Time: 13:18 Date: 02/22/25 Provider: Ashlyn Jean-Baptiste PA-C Patient in physician observation for psychiatric evaluation.?. No current complaints. VS stable. Will continue to monitor while awaiting placement. Time: 14:30 Date: 02/22/25 Provider: Ashlyn Jean-Baptiste PA-C Physician observation ended at 1400. Patient to be admitted as inpatient to psychiatry here. Differential Diagnosis Differential Diagnoses: The differential diagnosis associated with the presentation includes Consult Healthcare Provider Management of the patient was discussed with: Behavioral Health Provider Lab Data MDM Lab Attestation statement: I reviewed the patient's lab results. 02/22/25 11:24 02/22/25 11:24 Labs: Lab Results 02/22/25 02/22/25 Range/Units 11:24 13:03 WBC 4.8 (4.8-10.8) X10*3/uL RBC 5.34 (4.60-5.80) X10*6/uL Hgb 15.4 (14.0-18.0) g/dl Hct 45.1 (42.0-52.0) % MCV 84.5 (80.0-98.0) fL MCH 28.8 (27.0-33.0) pg MCHC 34.1 (31.0-36.0) g/dl RDW 12.7 (11.0-16.0) % Plt Count 327 D (160-400) X10*3/uL MPV 8.3 L (9.4-12.4) fL Immature Gran % (Auto) 0.2 (0.0-0.4) % Neut % (Auto) 51.9 (45-73) % Lymph % (Auto) 37.8 (20-40) % [place] % (Auto) 6.3 (2-11) % Eos % (Auto) 3.2 (0-4) % Baso % (Auto) 0.6 (0-2) % Lymph # (Auto) 1.8 (1.2-4.9) X10*3/uL [place] # (Auto) 0.3 (0.1-1.2) X10*3/uL Eos # (Auto) 0.2 (0.0-0.4) X10*3/uL Baso # (Auto) 0.0 (0.0-0.2) X10*3/uL Abs Immat Gran (auto) 0.01 (0.00-0.03) X10*3/uL Absolute Neuts (auto) 2.5 (2.0-8.3) x10*3/uL Absolute Nucleated RBC 0.000 (0.0-0.012) X10*3/uL Nucleated RBC % (auto) 0.0 (0.0-0.2) /100WBC Sodium 140 (135-145) mmol/L Potassium 3.8 (3.3-5.1) mmol/L Chloride 109 H (96-108) mmol/L Carbon Dioxide 22 (22-29) mmol/L Anion Gap 13 (12-20) BUN 7 L (9-16) mg/dL Creatinine 1.32 (0.5-1.4) mg/dL Estim Creat Clear Calc 75.1 Estimated GFR > 60 Random Glucose 98 (60-115) mg/dL Calcium 9.6 (8.4-10.2) mg/dL Total Bilirubin 0.9 (0.0-1.0) mg/dL AST 37 (5-37) U/L ALT 56 H (0-40) U/L Alkaline Phosphatase 73 (39-117) U/L Total Protein 7.2 (6.5-8.0) g/dL Albumin 4.5 (3.5-5.0) g/dL Urine Color Dark Yellow Urine Appearance Clear Urine pH 6.0 (5.0-9.0) Ur Specific [place] >= 1.030 H (1.005-1.025) Urine Protein 30 (1+) H (Neg-Trace) mg/dL Urine Glucose (UA) Negative (Negative) mg/dL Urine Ketones Trace (Negative) mg/dL Urine Blood Negative (Negative) Urine Nitrite Negative (Negative) Ur Leukocyte Esterase Negative (Negative) Urine RBC 0-2 (0-2) /HPF Urine WBC 0-5 (0-5) /HPF Ur Squamous Epith Cells 0-2 (0-2) /HPF Urine Bacteria None Seen (None Seen) Hyaline Casts 3-5 (0-2) /LPF Granular Casts Present Salicylates < 5.0 L (15-30) mg/dL Urine Opiates Screen Not Detected (Not Detect) Ur Buprenorphine Scrn Not Detected (Not Detect) ng/mL Ur Oxycodone Screen Not Detected (Not Detect) ng/mL Urine Methadone Screen Not Detected (Not Detect) ng/mL Urine Fentanyl Screen Not Detected (Not Detect) Acetaminophen < 3 (<30) mcg/mL Ur Barbiturates Screen Not Detected (Not Detect) Ur Phencyclidine Scrn Not Detected (Not Detect) Ur Amphetamines Screen Not Detected (Not Detect) U Benzodiazepines Scrn Not Detected (Not Detect) Urine Cocaine Screen Not Detected (Not Detect) U Marijuana (THC) Screen Not Detected (Not Detect) Ethyl Alcohol < 10 mg/dL COVID-19 (MARIMAR) Negative (Negative) COVID-19 Clin Com See Note External Record Review External record reviewed: Outpatient record Tests considered The following testing was considered but not selected: Would have considered doing a chest x-ray and patient had his symptoms not just began today been chronic or had his lung sounds been abnormal but as they are benign was deferred Chronic Conditions Patient?s care impacted by: Other Social Determinants Patient?s care significantly limited by Social Determinants of Health including: Other Social Determinant of Health Critical Care Time Critical Care Time Critical Care Time: No Discharge Plan Discharge Clinical Impression: Suicidal ideation, Schizoaffective disorder, bipolar type Patient Disposition: Admitted As Inpatient Interventions: [place]-Suicide Risk Severity Scale Last Done: 02/22/25 11:26
[2025-02-22 11:29] LABS: MANUAL DIFF FLAG NO
[2025-02-22 11:31] LABS: Hematocrit 45.1 % (42.0-52.0); Hemoglobin 15.4 g/dl (14.0-18.0); Imm Gran Abs Auto 0.01 X10*3/uL (0.00-0.03); Imm Gran Pct Auto 0.2 % (0.0-0.4); Lymphocytes Absolute Auto 1.8 X10*3/uL (1.2-4.9); Mean Corpuscular HGB Conc 34.1 g/dl (31.0-36.0); Mean Corpuscular Hemoglobin 28.8 pg (27.0-33.0); Mean Corpuscular Volume 84.5 fL (80.0-98.0); NRBC Abs Auto 0.000 X10*3/uL (0.0-0.012); NRBC Pct Auto 0.0 /100WBC (0.0-0.2); Platelet Count 327 X10*3/uL (160-400); Red Blood Count 5.34 X10*6/uL (4.60-5.80); White Blood Count 4.8 X10*3/uL (4.8-10.8)
[2025-02-22 11:49] LABS: Alanine Aminotransferase 56 U/L (0-40); Albumin Level 4.5 g/dL (3.5-5.0); Anion Gap 13 (12-20); Aspartate Amino Transferase 37 U/L (5-37); Blood Urea Nitrogen 7 mg/dL (9-16); COVID-19 Test Negative (Negative); Calcium 9.6 mg/dL (8.4-10.2); Carbon Dioxide 22 mmol/L (22-29); Chloride 109 mmol/L (96-108); Creatinine Clr Calc Pharmacy 75.1; Estimated Glomerular Filt Rate > 60; IDNOW Serial# 08D9AD1C; Potassium 3.8 mmol/L (3.3-5.1); Sodium 140 mmol/L (135-145); Total Protein 7.2 g/dL (6.5-8.0)
[2025-02-22 11:52] LABS: Alkaline Phosphatase 73 U/L (39-117)
[2025-02-22 11:54] LABS: Acetaminophen LAB < 3 mcg/mL (<30); Salicylate < 5.0 mg/dL (15-30)
[2025-02-22] MEDS: buPROPion HCl XL 300 MG TAB.ER.24H PO (13:08)
[2025-02-22 13:15] LABS: Appearance Urine Clear; Glucose Urine UA Negative (Negative); PH 6.0 (5.0-9.0); Specific Gravity - Urine >= 1.030 (1.005-1.025); UMIC TRIGGER UA YES
[2025-02-22 13:22] LABS: Cannabinoid Screen Urine Not Detected (Not Detect)
--- NOTE | 2025-02-22 14:42 | PHA.MEDREC ---
Pharmacy Consult ? Medication Reconciliation Pharmacy has completed the medication reconciliation. Reviewed med rec done by nursing.
[2025-02-22 15:55] VITALS: BP 120/73; PULSE 96; RESP 18; TEMP 36.2; O2SAT 97; BMI 33.4
--- NOTE | 2025-02-22 16:58 | PC.ADMIT ---
Patient was admitted from the ED POD on a CV for tx of Schizoafective Disorder. Pt self presented to the ED reporting SI with thoughts to cut his neck. Juan has a hx of IPLOC admission at [facility], with his most recent being this past December on M3. Upon admission assessment, pt is A&Ox3, cooperative with the admission process but slightly guarded/limited in regards to answering certain questions. He denies any clear precipitant other than feeling down in the dumps . He reports he has been sleeping more often and his appetite has been poor due to increased feelings of depression. He reports occasional VH but I just brush it off because I don't know if it's just a shadow or a car going by . Response is vague when asked about AH, stated I don't know, maybe I have before but not right now . Continues to endorse SI but denies any plan or intent. Tox was negative, skin check unremarkable and pt placed on 15 minute checks. States his goal for this admission is Stabilization , though he reports being compliant with his home medications prior to presenting to the hospital.
--- NOTE | 2025-02-22 17:32 | PC.NURSE ---
Patient decline the flu vaccine, reports already immunized this season
[2025-02-22 20:00] VITALS: BP 124/60; PULSE 97; RESP 17; TEMP 36.3; O2SAT 97
[2025-02-22] MEDS: Magnesium Hydrox/Alum Hydrox 30 ML ORAL.SUSP PO (20:41)
[2025-02-23 08:00] VITALS: BP 114/59; PULSE 72; RESP 14; TEMP 36.3; O2SAT 97
--- NOTE | 2025-02-23 08:30 | HO.PM.IMCN ---
History of Present Illness Data of Consult Service Date: 02/23/25 Primary Care Provider: [facility] Reason for consult: Medical consult 39-year-old male with a past medical history of depression, schizoaffective disorder bipolar type, anxiety presented to the emergency department with suicide ideation with a plan to cut his throat. Patient was here 1 month ago. His medical evaluation revealed no leukocytosis, no anemia. CMP without evidence of electrolyte imbalances, renal or liver impairment. Urine negative for infection, tox screen negative. Last admission patient reported persistent tooth pain, he had a negative CT and completed a course of clindamycin. On exam he has no medical concerns. Review of Systems Review of Systems: Denies any shortness of breath, chest pain, headaches, dysuria, abdominal pain or discomfort, nausea, vomiting or diarrhea. Denies fever, chills. Denies mouth pain PMFSH Medical History Pain, dental Suicidal ideation Schizoaffective disorder, bipolar type Social History Household Members: None Housing: Apartment Housing Other:: [facility] Do you presently have visiting nurse or other home services: Yes Alcohol intake: former Patient Tobacco Use Status: Never used Tobacco Smoked in Last 30 Days: No e-Cigarette/Vaping Use: Never Used Patient Interested in Nicotine Replacement: No Currently Displaying Signs/Symptoms of Drug Intoxication Withdrawal: No Have you been hit, kicked, punched, or otherwise hurt by someone within the past year? If so, by whom?: No Do you feel safe in your current relationship?: No Current Relationship Is there a partner from a previous relationship who is making you feel unsafe now?: No Are you made to feel afraid or neglected: No Advance Directives: No Advance Directives Information Provided: Yes Do you have thoughts of harming others: None Do you have a plan to hurt others: No Plan Recently lost weight without trying: No How much weight loss: Not applicable Eating poorly because of decreased appetite: No Nutrition screen score: 0 Nutrition Risks: No Nutritional Risk Poor oral hygiene: No service: No Sexual orientation: Straight/Heterosexual Meds Allergies Allergy/AdvReac Type Severity Reaction Status Date / Time No Known Allergies Allergy Verified 02/22/25 10:38 Active Medications: Current Medications Acetaminophen (Acetaminophen 325 Mg Tablet) 650 mg PO Q6H PRN PRN Reason: Headache/Pain, Scale 1-10 Al Hydroxide/Mg Hydroxide (Magnesium Hydrox/Alum Hydrox 30 Ml Oral.Susp) 30 ml PO Q6H PRN PRN Reason: Heartburn/Nausea Last Admin: 02/22/25 20:41 Dose: 30 ml Bupropion HCl (Bupropion Hcl Xl 300 Mg Tab.Er.24h) 300 mg PO DAILY [facility] Last Admin: 02/22/25 13:08 Dose: 300 mg Hydroxyzine HCl (Hydroxyzine Hcl 25 Mg Tablet) 25 mg PO Q6H PRN PRN Reason: mild anxiety Magnesium Hydroxide (Milk Of Magnesia 30 Ml Oral.Susp) 30 ml PO DAILY PRN PRN Reason: Constipation Nicotine Polacrilex (Nicotine Polacrilex 2 Mg Gum) 2 mg BUCCAL Q2H PRN PRN Reason: Nicotine Cravings Non-Formulary Medication (Aripiprazole [Abilify Maintena]) 400 mg IM Q28D [facility] Trazodone HCl (Trazodone Hcl 50 Mg Tablet) 150 mg PO BEDTIME [facility] Last Admin: 02/22/25 21:50 Dose: Not Given Physical Exam Vital Signs and Narrative: Vital Signs: Last Vital Signs Temp 97.4 F 02/23/25 08:00 Pulse 72 02/23/25 08:00 Resp 14 02/23/25 08:00 BP 114/59 L 02/23/25 08:00 Pulse Ox 97 02/23/25 08:00 O2 Del Method Room Air 02/23/25 08:00 BMI result Body Mass Index 33.4 CONST: Alert and oriented, in NAD. Well nourished HEENT: Normocephalic, atraumatic, MMM, Eyes clear, Neck supple RESP: Lungs clear, RRR even and regular HEART:,RRR, S1, S2. No edema GI:Abdomen Soft NT, ND. + BS times four :Deferred SKIN: Warm dry and intact, no visible lesions or rashes NEURO:CN II-XII Intact bilaterally, Sensation intact. Speech clear. Ambulating with steady gait. PSYCH: Normal affect Results Labs 02/22/25 11:24 02/22/25 11:24 Labs: Laboratory Results - last 24 hr 02/22/25 02/22/25 11:24 13:03 MCV 84.5 MCH 28.8 MCHC 34.1 RDW 12.7 Plt Count 327 D MPV 8.3 L Immature Gran % (Auto) 0.2 Neut % (Auto) 51.9 Lymph % (Auto) 37.8 [place] % (Auto) 6.3 Eos % (Auto) 3.2 Baso % (Auto) 0.6 Lymph # (Auto) 1.8 [place] # (Auto) 0.3 Eos # (Auto) 0.2 Baso # (Auto) 0.0 Abs Immat Gran (auto) 0.01 Absolute Neuts (auto) 2.5 Absolute Nucleated RBC 0.000 Nucleated RBC % (auto) 0.0 Anion Gap 13 Estim Creat Clear Calc 75.1 Estimated GFR > 60 Random Glucose 98 Calcium 9.6 Total Bilirubin 0.9 AST 37 ALT 56 H Alkaline Phosphatase 73 Total Protein 7.2 Albumin 4.5 Urine Color Dark Yellow Urine Appearance Clear Urine pH 6.0 Ur Specific [place] >= 1.030 H Urine Protein 30 (1+) H Urine Glucose (UA) Negative Urine Ketones Trace Urine Blood Negative Urine Nitrite Negative Ur Leukocyte Esterase Negative Urine RBC 0-2 Urine WBC 0-5 Ur Squamous Epith Cells 0-2 Urine Bacteria None Seen Hyaline Casts 3-5 Granular Casts Present Salicylates < 5.0 L Urine Opiates Screen Not Detected Ur Buprenorphine Scrn Not Detected Ur Oxycodone Screen Not Detected Urine Methadone Screen Not Detected Urine Fentanyl Screen Not Detected Acetaminophen < 3 Ur Barbiturates Screen Not Detected Ur Phencyclidine Scrn Not Detected Ur Amphetamines Screen Not Detected U Benzodiazepines Scrn Not Detected Urine Cocaine Screen Not Detected U Marijuana (THC) Screen Not Detected Ethyl Alcohol < 10 COVID-19 ([facility]) Negative COVID-19 Clin Com See Note Assessment and Plan (1) Depression: Status: Acute Plan 39-year-old male with no significant past medical history. Admitted to inpatient psych for further stabilization after presenting to the ED with suicide ideation. Depression/schizoaffective disorder bipolar type/suicidal ideation Treatment per psychiatric team Thank you for allowing me to participate in the care of this patient. Will follow with you, please notify medical provider with any changes in condition or concerns.
[2025-02-23] MEDS: buPROPion HCl XL 300 MG TAB.ER.24H PO (08:32)
--- NOTE | 2025-02-23 19:02 | P.HPPS_ITS ---
HPI Date of Service: 02/23/25 Chief Complaint: SI Sources of Information: patient interviewed, chart reviewed and crisis/core team assessment reviewed HPI Subjective Notes: Conditional Voluntary Narrative: Mr. Case is a 39 y/o [place] M with h/o schizoaffective d/o and multiple inpatient psychiatric admissions who self presented to the [facility] [place] yesterday due to SI to cut his neck. Pt has had multiple inpt psychiatric admission at [facility] [place], most recently from 01/05- 01/12/25. He reports that he has been taking his meds as rx'd. He started feeling depressed again 1.5-2 wks ago and wasn't eating or drinking, sleeping a lot, anhedonia. He endorses SI to cut his neck. He denies recent self harming behavior but reports that he has punched himself in the head due to dental pain. Endorses VH of manuel, blurry, luminescent shadows and AH of noises that aren't there and occasional voices (but this has improved overall). Denies CAH. Denies h/o juventino Endorses excessive worries, some muscle tension Denies h/o significant trauma. Reports having nightmares for past 3 months. Denies substance use. Past Psychiatric History: History of multiple inpatient psychiatric hospitalizations at [facility] [place] [facility] (since 2011, most recent from 01/05-01/12/25 and in August 2024), [place] Outpatient prescriber: Kirsten Shankar ([facility])- [phone] Does not have outpatient therapist at this time. Involved with [facility] Current psychotropic meds- Wellbutrin XL 300 mg- states this was recently increased, unclear how much it's helped Abilify Maintena 400 mg Q monthly which he said he has been on for years. He reports taking his last dose on 01/21/25. Per external med rec- it was last filled on 02/19 SA: one near attempt at 18yo, planning to jump off bridge Per crisis eval- h/o posturing towards grandmother, gesturing aggressively toward mother h/o near catatonic states per crisis Med trials- per chart- lithium; a long time ago, helped mood wellbutrin: maybe helpful, maybe a numbing effect? Vraylar: nausea? ECT in past Medical Evaluation Reviewed: Yes [facility] Medical History Pain, dental Suicidal ideation Schizoaffective disorder, bipolar type Family History: Denies Social History: Lives on his own. Single. No kids. Disability. Some college. Born in [place] in [facility], moved to around [age] with his family Substance History: Pt denies Per crisis assessment- has h/o cannabis and ETOH use Trauma History: Denies Diagnostics Vital Signs (24Hr): Vital Signs - 24 hr 02/22/25 20:00 02/23/25 08:00 Temperature 97.4 F 97.4 F Pulse Rate 97 72 Respiratory Rate 17 14 Blood Pressure 124/60 114/59 L Pulse Oximetry 97 97 Oxygen Delivery Method Room Air Room Air BMI result Body Mass Index 33.4 Labs 02/22/25 11:24 02/22/25 11:24 Labs: Laboratory Results - last 48 hr 02/22/25 02/22/25 11:24 13:03 WBC 4.8 RBC 5.34 Hgb 15.4 Hct 45.1 MCV 84.5 MCH 28.8 MCHC 34.1 RDW 12.7 Plt Count 327 D MPV 8.3 L Immature Gran % (Auto) 0.2 Neut % (Auto) 51.9 Lymph % (Auto) 37.8 [place] % (Auto) 6.3 Eos % (Auto) 3.2 Baso % (Auto) 0.6 Lymph # (Auto) 1.8 [place] # (Auto) 0.3 Eos # (Auto) 0.2 Baso # (Auto) 0.0 Abs Immat Gran (auto) 0.01 Absolute Neuts (auto) 2.5 Absolute Nucleated RBC 0.000 Nucleated RBC % (auto) 0.0 Sodium 140 Potassium 3.8 Chloride 109 H Carbon Dioxide 22 Anion Gap 13 BUN 7 L Creatinine 1.32 Estim Creat Clear Calc 75.1 Estimated GFR > 60 Random Glucose 98 Calcium 9.6 Total Bilirubin 0.9 AST 37 ALT 56 H Alkaline Phosphatase 73 Total Protein 7.2 Albumin 4.5 Urine Color Dark Yellow Urine Appearance Clear Urine pH 6.0 Ur Specific [place] >= 1.030 H Urine Protein 30 (1+) H Urine Glucose (UA) Negative Urine Ketones Trace Urine Blood Negative Urine Nitrite Negative Ur Leukocyte Esterase Negative Urine RBC 0-2 Urine WBC 0-5 Ur Squamous Epith Cells 0-2 Urine Bacteria None Seen Hyaline Casts 3-5 Granular Casts Present Salicylates < 5.0 L Urine Opiates Screen Not Detected Ur Buprenorphine Scrn Not Detected Ur Oxycodone Screen Not Detected Urine Methadone Screen Not Detected Urine Fentanyl Screen Not Detected Acetaminophen < 3 Ur Barbiturates Screen Not Detected Ur Phencyclidine Scrn Not Detected Ur Amphetamines Screen Not Detected U Benzodiazepines Scrn Not Detected Urine Cocaine Screen Not Detected U Marijuana (THC) Screen Not Detected Ethyl Alcohol < 10 COVID-19 ([facility]) Negative COVID-19 Clin Com See Note Meds/Allergies Allergies Allergies Allergy/AdvReac Type Severity Reaction Status Date / Time No Known Allergies Allergy Verified 02/22/25 10:38 Mental Status Exam Mental Status Exam Narrative: Appearance: Fair grooming/hygiene, intermittent eye contact Attitude: Cooperative Speech: Some latency, paucity of spontaneous speech Motor activity: Slow. Calm and without any tics, tremors or dyskinesias. Steady gait Mood: as noted above Affect: blunted Thought process: generally goal directed, occasional thought blocking Thought content: as noted above Perception: Denies current AH/VH and does not appear to respond to internal stimuli Alert/oriented in all spheres Cognition grossly intact Insight: intact Judgment: generally intact Assessment & Plan Patient educated on: diagnosis, medication risk/benefits and therapeutic strategies Informed Consent: understands Reason for continued inpatient stay Substantial Risk for: harm to self and med/psych decompensation Statement Statement: I have reviewed the history and physical and performed a pertinent examination on my patient. No changes have occurred unless specified. If the History and Physical was not performed prior to admission, the Hospitalist's service will be consulted for completing the admission physical. Time Spent With Patient Time: Total time managing care of this patient today _60___ minutes.
[2025-02-23 20:00] VITALS: BP 131/76; PULSE 98; RESP 16; TEMP 36.7; O2SAT 97
--- NOTE | 2025-02-23 23:18 | PC.NURSE ---
Juan has been sleeping since 2099. Nurse did not wake up patient to give him sleeping medication (Trazodone).
[2025-02-24 08:00] VITALS: BP 157/76; PULSE 70; RESP 20; TEMP 36.4; O2SAT 97
[2025-02-24] MEDS: buPROPion HCl XL 300 MG TAB.ER.24H PO (08:51)
[2025-02-24] MEDS: Magnesium Hydrox/Alum Hydrox 30 ML ORAL.SUSP PO (15:25)
[2025-02-24 20:00] VITALS: BP 118/81; PULSE 121; RESP 18; TEMP 36.7; O2SAT 96
--- NOTE | 2025-02-24 20:40 | HO.PSYCHPN ---
Subjective Subjective Date of Service: 02/24/25 Reason For Visit: SI Subjective Notes: Conditional Voluntary Healthcare Proxy: No Guardianship: No Medical Problems Affecting Mental Status: No Interim History: Medical record and nursing notes reviewed; case discussed during rounds with team/nursing staff, and met with patient for supportive therapy/psychoeducation, as well as medication management. Patient slept for 7 hours, requests to have trazodone mood to PRNs and lowered down to 100 mg. Patient requests melatonin at bedtime for sleep. Reports chest pain 02/16 pointed to meet chest, he thinks he may have heartburn instead. He reported that he feel depressed and hopeless the denies safety concerns. He actually from after the conversation in the bathroom. Review with patient of some medication changes today. Patient is receptive with the plan. Medication Compliance: Yes Side effects from medications: No Attending Groups: Intermittent Review of Systems Acute medical concerns: No Medical Review of Systems: unchanged Review of Systems Review of Systems Denies any shortness of breath, chest pain, headaches, dysuria, abdominal pain or discomfort, diarrhea. Denies fever, chills. Denies mouth pain. Report heart burn and vomited in the bathroom. Mental Status Exam Mental Status Exam Narrative: Appearance: Fair grooming/hygiene, intermittent eye contact Attitude: Cooperative Speech: Some latency, paucity of spontaneous speech Motor activity: Slow. Calm and without any tics, tremors or dyskinesias. Steady gait Mood: depressed and hopeless Affect: blunted Thought process: generally goal directed, occasional thought blocking Thought content: as noted above Perception: Denies current AH/VH and does not appear to respond to internal stimuli Alert/oriented in all spheres Cognition grossly intact Insight: intact Judgment: generally intact Diagnostics Vital Signs (24Hr): Vital Signs - 24 hr 02/24/25 08:00 Temperature 97.6 F Pulse Rate 70 Respiratory Rate 20 Blood Pressure 157/76 H Pulse Oximetry 97 Oxygen Delivery Method Room Air BMI result Body Mass Index 33.4 Labs 02/22/25 11:24 02/22/25 11:24 Medications Medications Current Medications Acetaminophen (Acetaminophen 325 Mg Tablet) 650 mg PO Q6H PRN PRN Reason: Headache/Pain, Scale 1-10 Al Hydroxide/Mg Hydroxide (Magnesium Hydrox/Alum Hydrox 30 Ml Oral.Susp) 30 ml PO Q6H PRN PRN Reason: Heartburn/Nausea Last Admin: 02/24/25 15:25 Dose: 30 ml Bupropion HCl (Bupropion Hcl Xl 300 Mg Tab.Er.24h) 300 mg PO DAILY [facility] Last Admin: 02/24/25 08:51 Dose: 300 mg Calcium Carbonate (Calcium Carbonate 750 Mg Tab.Chew) 750 mg PO Q6H PRN PRN Reason: Heartburn Last Admin: 02/24/25 19:17 Dose: 750 mg Hydroxyzine HCl (Hydroxyzine Hcl 25 Mg Tablet) 25 mg PO Q6H PRN PRN Reason: mild anxiety Last Admin: 02/24/25 20:36 Dose: 25 mg Magnesium Hydroxide (Milk Of Magnesia 30 Ml Oral.Susp) 30 ml PO DAILY PRN PRN Reason: Constipation Melatonin (Melatonin 3 Mg Tablet) 9 mg PO BEDTIME [facility] Nicotine Polacrilex (Nicotine Polacrilex 2 Mg Gum) 2 mg BUCCAL Q2H PRN PRN Reason: Nicotine Cravings Non-Formulary Medication (Aripiprazole [Abilify Maintena]) 400 mg IM Q28D [facility] Olanzapine (Olanzapine 5 Mg Tablet) 5 mg PO BID PRN PRN Reason: agitation Omeprazole (Omeprazole 20 Mg Capsule.Dr) 20 mg PO DAILY@0630 [facility] Ondansetron HCl (Ondansetron Odt 4 Mg Tab.Rapdis) 4 mg TRANSLINGU Q8H PRN PRN Reason: Nausea and Vomiting Trazodone HCl (Trazodone Hcl 100 Mg Tablet) 100 mg PO BEDTIME PRN PRN Reason: insomnia Allergies Allergies Allergy/AdvReac Type Severity Reaction Status Date / Time No Known Allergies Allergy Verified 02/22/25 10:38 Assessment & Plan Assessment & Plan (1) Depression: Status: Acute Code(s): F32.A - Depression, unspecified Plan Plan: Admitted to for safety and stabilization Legal status- CV 15 min safety checks Admission medical consult done by hospitalist, reviewed by t/w. Labs and EKG reviewed. QTc 447 ms on 02/22/25 Milieu therapy Care coordination- will contact pt's care team on Wednesday to clarify when he last received the Abilfy Maintena Meds- Continue bupropion 300 mg qd, trazodone 150 mg qhs Hydroxyzine prn for anxiety olanzapine 5 mg tid prn for agitation 02/24/25: Patient slept for 7 hours, requests to have trazodone mood to PRNs and lowered down to 100 mg. Patient requests melatonin at bedtime for sleep. Reports chest pain 10/10 pointed to meet chest, he thinks he may have heartburn instead. He reported that he feel depressed and hopeless the denies safety concerns. He actually from after the conversation in the bathroom. Review with patient of some medication changes today. Patient is receptive with the plan. Trazodone down to 100 mg, changed to p.r.n. per patient request, Increase melatonin 9 mg at bedtime for insomnia. Tums p.r.n. for heartburn. Zofran 4 mg Q 8 hours p.r.n. for nauseous and vomiting Omeprazole 20 mg daily in the morning Patient educated on: diagnosis, medication risk/benefits and therapeutic strategies Informed Consent: further education needed Reason for continued inpatient stay Substantial Risk for: med/psych decompensation Time Spent With Patient Time: Total time managing care of this patient today ____ minutes.
[2025-02-25 08:00] VITALS: BP 110/70; PULSE 98; RESP 16; TEMP 36.5; O2SAT 98
[2025-02-25] MEDS: buPROPion HCl XL 300 MG TAB.ER.24H PO (08:39)
--- NOTE | 2025-02-25 13:37 | HO.PSYCHPN ---
Subjective Subjective Date of Service: 02/25/25 Reason For Visit: SI Subjective Notes: Conditional Voluntary Healthcare Proxy: No Guardianship: No Medical Problems Affecting Mental Status: No Interim History: Medical record and nursing notes reviewed; case discussed during rounds with team/nursing staff, and met with patient for supportive therapy/psychoeducation, as well as medication management. Patient was med compliant, denies side effects, feeling better with stomach issues/heartburn. Still feel little bit nauseous. Reports depression anxiety. Denies SI/SIB/HI/AVH. Per nursing, patient intermittently reports suicide thoughts, somewhat guarded and isolative with flat affect. Medication Compliance: Yes Side effects from medications: No Attending Groups: Intermittent Review of Systems Acute medical concerns: No Medical Review of Systems: unchanged Review of Systems Review of Systems Denies any shortness of breath, chest pain, headaches, dysuria, abdominal pain or discomfort, diarrhea. Denies fever, chills. Denies mouth pain. Mental Status Exam Mental Status Exam Narrative: Appearance: Fair grooming/hygiene, intermittent eye contact Attitude: Cooperative Speech: Some latency, paucity of spontaneous speech Motor activity: Slow. Calm and without any tics, tremors or dyskinesias. Steady gait Mood: depressed and anxious Affect: blunted- flat Thought process: generally goal directed, occasional thought blocking Thought content: as noted above Perception: Denies current AH/VH and does not appear to respond to internal stimuli Alert/oriented in all spheres Cognition grossly intact Insight: intact Judgment: generally intact Diagnostics Vital Signs (24Hr): Vital Signs - 24 hr 02/24/25 20:00 02/25/25 08:00 Temperature 98.1 F 97.7 F Pulse Rate 121 H 98 Respiratory Rate 18 16 Blood Pressure 118/81 110/70 Pulse Oximetry 96 98 Oxygen Delivery Method Room Air Room Air BMI result Body Mass Index 33.4 Labs 02/22/25 11:24 02/22/25 11:24 Medications Medications Current Medications Acetaminophen (Acetaminophen 325 Mg Tablet) 650 mg PO Q6H PRN PRN Reason: Headache/Pain, Scale 1-10 Last Admin: 02/25/25 09:08 Dose: 650 mg Al Hydroxide/Mg Hydroxide (Magnesium Hydrox/Alum Hydrox 30 Ml Oral.Susp) 30 ml PO Q6H PRN PRN Reason: Heartburn/Nausea Last Admin: 02/24/25 15:25 Dose: 30 ml Bupropion HCl (Bupropion Hcl Xl 300 Mg Tab.Er.24h) 300 mg PO DAILY [facility] Last Admin: 02/25/25 08:39 Dose: 300 mg Calcium Carbonate (Calcium Carbonate 750 Mg Tab.Chew) 750 mg PO Q6H PRN PRN Reason: Heartburn Last Admin: 02/24/25 19:17 Dose: 750 mg Hydroxyzine HCl (Hydroxyzine Hcl 25 Mg Tablet) 25 mg PO Q6H PRN PRN Reason: mild anxiety Last Admin: 02/24/25 20:36 Dose: 25 mg Magnesium Hydroxide (Milk Of Magnesia 30 Ml Oral.Susp) 30 ml PO DAILY PRN PRN Reason: Constipation Melatonin (Melatonin 3 Mg Tablet) 9 mg PO BEDTIME [facility] Last Admin: 02/24/25 22:19 Dose: Not Given Nicotine Polacrilex (Nicotine Polacrilex 2 Mg Gum) 2 mg BUCCAL Q2H PRN PRN Reason: Nicotine Cravings Non-Formulary Medication (Aripiprazole [Abilify Maintena]) 400 mg IM Q28D [facility] Olanzapine (Olanzapine 5 Mg Tablet) 5 mg PO BID PRN PRN Reason: agitation Omeprazole (Omeprazole 20 Mg Capsule.Dr) 20 mg PO DAILY@0630 [facility] Last Admin: 02/25/25 06:09 Dose: 20 mg Ondansetron HCl (Ondansetron Odt 4 Mg Tab.Rapdis) 4 mg TRANSLINGU Q8H PRN PRN Reason: Nausea and Vomiting Trazodone HCl (Trazodone Hcl 100 Mg Tablet) 100 mg PO BEDTIME PRN PRN Reason: insomnia Allergies Allergies Allergy/AdvReac Type Severity Reaction Status Date / Time No Known Allergies Allergy Verified 02/22/25 10:38 Assessment & Plan Assessment & Plan (1) Depression: Status: Acute Code(s): F32.A - Depression, unspecified Plan Plan: Admitted to for safety and stabilization Legal status- CV 15 min safety checks Admission medical consult done by hospitalist, reviewed by t/w. Labs and EKG reviewed. QTc 447 ms on 02/22/25 Milieu therapy Care coordination- will contact pt's care team on Wednesday to clarify when he last received the Abilfy Maintena Meds- Continue bupropion 300 mg qd, trazodone 150 mg qhs Hydroxyzine prn for anxiety olanzapine 5 mg tid prn for agitation 02/24/25: Patient slept for 7 hours, requests to have trazodone mood to PRNs and lowered down to 100 mg. Patient requests melatonin at bedtime for sleep. Reports chest pain 02/16 pointed to meet chest, he thinks he may have heartburn instead. He reported that he feel depressed and hopeless the denies safety concerns. He actually from after the conversation in the bathroom. Review with patient of some medication changes today. Patient is receptive with the plan. Trazodone down to 100 mg, changed to p.r.n. per patient request, Increase melatonin 9 mg at bedtime for insomnia. Tums p.r.n. for heartburn. Zofran 4 mg Q 8 hours p.r.n. for nauseous and vomiting Omeprazole 20 mg daily in the morning 02/25/25: Patient was med compliant, denies side effects, feeling better with stomach issues/heartburn. Still feel little bit nauseous. Reports depression anxiety. Denies SI/SIB/HI/AVH. Per nursing, patient intermittently reports suicide thoughts, somewhat guarded and isolative with flat affect. Patient educated on: diagnosis, medication risk/benefits and therapeutic strategies Informed Consent: understands and further education needed Reason for continued inpatient stay Substantial Risk for: med/psych decompensation Time Spent With Patient Time: Total time managing care of this patient today ____ minutes.
[2025-02-25 19:22] VITALS: BP 107/64; PULSE 90; RESP 17; TEMP 36.7; O2SAT 96
[2025-02-26 08:00] VITALS: BP 106/71; PULSE 78; RESP 16; TEMP 36.4; O2SAT 97
[2025-02-26] MEDS: buPROPion HCl XL 300 MG TAB.ER.24H PO (08:45)
--- NOTE | 2025-02-26 18:11 | HO.PSYCHPN ---
Subjective Subjective Date of Service: 02/26/25 Reason For Visit: SI Interim History: chart reviewed, case discussed with tx team Pt reports feeling a little better compared to yesterday, as he experienced 'gripping pain' in his stomach. Asks for MOM, Tums, and Maalox, which are all already ordered. He slept in a chair in the common area x 3 hrs last night, states that he just couldn't sleep. Slept during much of the day today. In regards to AH, he states that he doesn't know if he's heard voices today. Reports seeing ghost things'. Reports decreased SI, denies any current plan/intent to harm himself T/W left a message w/ Natty from his care team to clarify when he last received the Abilify Maintena injection. Awaiting call back Medication Compliance: Yes Side effects from medications: No Mental Status Exam Mental Status Exam Narrative: Appearance: lying in bed. fair grooming/hygiene, intermittent eye contact Attitude: Cooperative Speech: Some latency, paucity of spontaneous speech Motor activity: Calm and without any tics, tremors or dyskinesias. Steady gait Mood: 'a little better' Affect: blunted- flat Thought process: generally goal directed Thought content: as noted above Perception: does not appear to respond to internal stimuli Insight: fair Judgment: generally intact Diagnostics Vital Signs (24Hr): Vital Signs - 24 hr 02/25/25 19:22 02/26/25 08:00 Temperature 98.1 F 97.6 F Pulse Rate 90 78 Respiratory Rate 17 16 Blood Pressure 107/64 106/71 Pulse Oximetry 96 97 Oxygen Delivery Method Room Air Room Air BMI result Body Mass Index 33.4 Labs 02/22/25 11:24 02/22/25 11:24 Medications Medications Current Medications Acetaminophen (Acetaminophen 325 Mg Tablet) 650 mg PO Q6H PRN PRN Reason: Headache/Pain, Scale 1-10 Last Admin: 02/25/25 17:31 Dose: 650 mg Al Hydroxide/Mg Hydroxide (Magnesium Hydrox/Alum Hydrox 30 Ml Oral.Susp) 30 ml PO Q6H PRN PRN Reason: Heartburn/Nausea Last Admin: 02/24/25 15:25 Dose: 30 ml Bupropion HCl (Bupropion Hcl Xl 300 Mg Tab.Er.24h) 300 mg PO DAILY SERGIO Last Admin: 02/26/25 08:45 Dose: 300 mg Calcium Carbonate (Calcium Carbonate 750 Mg Tab.Chew) 750 mg PO Q6H PRN PRN Reason: Heartburn Last Admin: 02/24/25 19:17 Dose: 750 mg Hydroxyzine HCl (Hydroxyzine Hcl 25 Mg Tablet) 25 mg PO Q6H PRN PRN Reason: mild anxiety Last Admin: 02/24/25 20:36 Dose: 25 mg Magnesium Hydroxide (Milk Of Magnesia 30 Ml Oral.Susp) 30 ml PO DAILY PRN PRN Reason: Constipation Melatonin (Melatonin 3 Mg Tablet) 9 mg PO BEDTIME SERGIO Last Admin: 02/25/25 23:52 Dose: Not Given Nicotine Polacrilex (Nicotine Polacrilex 2 Mg Gum) 2 mg BUCCAL Q2H PRN PRN Reason: Nicotine Cravings Non-Formulary Medication (Aripiprazole [Abilify Maintena]) 400 mg IM Q28D SERGIO Olanzapine (Olanzapine 5 Mg Tablet) 5 mg PO BID PRN PRN Reason: agitation Omeprazole (Omeprazole 20 Mg Capsule.Dr) 20 mg PO DAILY@0630 [facility] Last Admin: 02/26/25 06:03 Dose: 20 mg Ondansetron HCl (Ondansetron Odt 4 Mg Tab.Rapdis) 4 mg TRANSLINGU Q8H PRN PRN Reason: Nausea and Vomiting Trazodone HCl (Trazodone Hcl 100 Mg Tablet) 100 mg PO BEDTIME PRN PRN Reason: insomnia Allergies Allergies Allergy/AdvReac Type Severity Reaction Status Date / Time No Known Allergies Allergy Verified 02/22/25 10:38 Assessment & Plan Assessment & Plan (1) Depression: Status: Acute Code(s): F32.A - Depression, unspecified Plan Plan: Admitted to for safety and stabilization Legal status- CV 15 min safety checks Admission medical consult done by hospitalist, reviewed by t/w. Labs and EKG reviewed. QTc 447 ms on 02/22/25 Milieu therapy Care coordination- will contact pt's care team on Wednesday to clarify when he last received the Abilfy Maintena Meds- Continue bupropion 300 mg qd, trazodone 150 mg qhs Hydroxyzine prn for anxiety olanzapine 5 mg tid prn for agitation 02/24/25: Patient slept for 7 hours, requests to have trazodone mood to PRNs and lowered down to 100 mg. Patient requests melatonin at bedtime for sleep. Reports chest pain 02/16 pointed to meet chest, he thinks he may have heartburn instead. He reported that he feel depressed and hopeless the denies safety concerns. He actually from after the conversation in the bathroom. Review with patient of some medication changes today. Patient is receptive with the plan. Trazodone down to 100 mg, changed to p.r.n. per patient request, Increase melatonin 9 mg at bedtime for insomnia. Tums p.r.n. for heartburn. Zofran 4 mg Q 8 hours p.r.n. for nauseous and vomiting Omeprazole 20 mg daily in the morning 02/25/25: Patient was med compliant, denies side effects, feeling better with stomach issues/heartburn. Still feel little bit nauseous. Reports depression anxiety. Denies SI/SIB/HI/AVH. Per nursing, patient intermittently reports suicide thoughts, somewhat guarded and isolative with flat affect. 02/26/25: Reports gradual improvement in psychiatric and physical sx. Left lory w/ Natty from pt's care team to clarify when he received last dose of Abilify Maintena- awaiting call back. Continue current tx plan for now Patient educated on: medication risk/benefits Informed Consent: understands Reason for continued inpatient stay Substantial Risk for: med/psych decompensation Time Spent With Patient Time: Total time managing care of this patient today _25__ minutes.
[2025-02-26 19:50] VITALS: BP 116/66; PULSE 99; RESP 16; TEMP 37.4; O2SAT 95
[2025-02-27 08:00] VITALS: BP 133/67; PULSE 94; RESP 18; TEMP 36.9; O2SAT 98
[2025-02-27] MEDS: buPROPion HCl XL 300 MG TAB.ER.24H PO (08:32)
--- NOTE | 2025-02-27 18:41 | P.PNPSI_ITS ---
Subjective Subjective Date of Service: 02/27/25 Reason For Visit: SI Interim History: chart reviewed, case discussed with tx team SW spoke w/ pt's care team. They reported that his last Abillify Maintena shot was given on 01/25 Discussed plan to d/c on if pt remains stable. Met w/ pt in his room while he was eating dinner. He reports poor sleep last night (got 5 hrs per nurse). Unable to say why he couldn't sleep. He has prn trazodone and melatonin ordered. t/w asked if he wants alternative med for sleep and he declined. He reports feeling tired. Denies SI/violent ideation, AH/VH He is agreeable w/ getting his Maintena injection tomorrow am Mental Status Exam Mental Status Exam Narrative: Appearance: fair grooming/hygiene, intermittent eye contact Attitude: Cooperative Speech: Some latency, paucity of spontaneous speech Motor activity: Calm and without any tics, tremors or dyskinesias. Mood: 'okay' Affect: blunted- flat Thought process: generally goal directed Thought content: as noted above Perception: does not appear to respond to internal stimuli Insight: fair Judgment: generally intact Diagnostics Vital Signs (24Hr): Vital Signs - 24 hr 02/26/25 19:50 02/27/25 08:00 Temperature 99.4 F 98.5 F Pulse Rate 99 94 Respiratory Rate 16 18 Blood Pressure 116/66 133/67 Pulse Oximetry 95 98 Oxygen Delivery Method Room Air Room Air BMI result Body Mass Index 33.4 Labs 02/22/25 11:24 02/22/25 11:24 Medications Medications Current Medications Acetaminophen (Acetaminophen 325 Mg Tablet) 650 mg PO Q6H PRN PRN Reason: Headache/Pain, Scale 1-10 Last Admin: 02/25/25 17:31 Dose: 650 mg Al Hydroxide/Mg Hydroxide (Magnesium Hydrox/Alum Hydrox 30 Ml Oral.Susp) 30 ml PO Q6H PRN PRN Reason: Heartburn/Nausea Last Admin: 02/24/25 15:25 Dose: 30 ml Bupropion HCl (Bupropion Hcl Xl 300 Mg Tab.Er.24h) 300 mg PO DAILY SERGIO Last Admin: 02/27/25 08:32 Dose: 300 mg Calcium Carbonate (Calcium Carbonate 750 Mg Tab.Chew) 750 mg PO Q6H PRN PRN Reason: Heartburn Last Admin: 02/24/25 19:17 Dose: 750 mg Hydroxyzine HCl (Hydroxyzine Hcl 25 Mg Tablet) 25 mg PO Q6H PRN PRN Reason: mild anxiety Last Admin: 02/24/25 20:36 Dose: 25 mg Magnesium Hydroxide (Milk Of Magnesia 30 Ml Oral.Susp) 30 ml PO DAILY PRN PRN Reason: Constipation Melatonin (Melatonin 3 Mg Tablet) 9 mg PO BEDTIME PRN PRN Reason: insomnia Nicotine Polacrilex (Nicotine Polacrilex 2 Mg Gum) 2 mg BUCCAL Q2H PRN PRN Reason: Nicotine Cravings Non-Formulary Medication (Aripiprazole [Abilify Maintena]) 400 mg IM Q28D SERGIO Olanzapine (Olanzapine 5 Mg Tablet) 5 mg PO BID PRN PRN Reason: agitation Omeprazole (Omeprazole 20 Mg Capsule.Dr) 20 mg PO DAILY@0630 [facility] Last Admin: 02/27/25 07:04 Dose: 20 mg Ondansetron HCl (Ondansetron Odt 4 Mg Tab.Rapdis) 4 mg TRANSLINGU Q8H PRN PRN Reason: Nausea and Vomiting Trazodone HCl (Trazodone Hcl 100 Mg Tablet) 100 mg PO BEDTIME PRN PRN Reason: insomnia Allergies Allergies Allergy/AdvReac Type Severity Reaction Status Date / Time No Known Allergies Allergy Verified 02/22/25 10:38 Assessment & Plan Assessment & Plan (1) Depression: Status: Acute Code(s): F32.A - Depression, unspecified Plan Plan: Admitted to for safety and stabilization Legal status- CV 15 min safety checks Admission medical consult done by hospitalist, reviewed by t/w. Labs and EKG reviewed. QTc 447 ms on 02/22/25 Milieu therapy Care coordination- will contact pt's care team on Wednesday to clarify when he last received the Abilfy Maintena Meds- Continue bupropion 300 mg qd, trazodone 150 mg qhs Hydroxyzine prn for anxiety olanzapine 5 mg tid prn for agitation 02/24/25: Patient slept for 7 hours, requests to have trazodone mood to PRNs and lowered down to 100 mg. Patient requests melatonin at bedtime for sleep. Reports chest pain 02/16 pointed to meet chest, he thinks he may have heartburn instead. He reported that he feel depressed and hopeless the denies safety concerns. He actually from after the conversation in the bathroom. Review with patient of some medication changes today. Patient is receptive with the plan. Trazodone down to 100 mg, changed to p.r.n. per patient request, Increase melatonin 9 mg at bedtime for insomnia. Tums p.r.n. for heartburn. Zofran 4 mg Q 8 hours p.r.n. for nauseous and vomiting Omeprazole 20 mg daily in the morning 02/25/25: Patient was med compliant, denies side effects, feeling better with stomach issues/heartburn. Still feel little bit nauseous. Reports depression anxiety. Denies SI/SIB/HI/AVH. Per nursing, patient intermittently reports suicide thoughts, somewhat guarded and isolative with flat affect. 02/26/25: Reports gradual improvement in psychiatric and physical sx. Left lory w/ Natty from pt's care team to clarify when he received last dose of Abilify Maintena- awaiting call back. Continue current tx plan for now 02/27/25: Last Abilify Maintena dose confirmed by pt's outpatient support team - given 01/25. Will give next dose tomorrow. He seems to be around his baseline. Will likey d/c on 03/01 Patient educated on: medication risk/benefits and therapeutic strategies Informed Consent: understands Reason for continued inpatient stay Substantial Risk for: med/psych decompensation Time Spent With Patient Time: Total time managing care of this patient today 25_ minutes.
[2025-02-27 20:00] VITALS: BP 110/62; PULSE 85; RESP 20; TEMP 36.6; O2SAT 97
[2025-02-28 07:34] VITALS: BP 126/76; PULSE 72; RESP 18; TEMP 36.2; O2SAT 97
[2025-02-28] MEDS: buPROPion HCl XL 300 MG TAB.ER.24H PO (08:27)
--- NOTE | 2025-02-28 19:41 | P.PNPSI_ITS ---
Subjective Subjective Date of Service: 02/28/25 Reason For Visit: SI Interim History: chart reviewed, case discussed with tx team Met w/ pt w/ SW Pt reports poor sleep last night again. He hasn't attended any groups- states he does'nt feel up to it. His mood is 'so-so'. He denies SI. Discussed plan for pt to d/c tomorrow. His bunker worker will pick him up. He was accepting of this news. Mental Status Exam Mental Status Exam Narrative: Appearance: fair grooming/hygiene, fair eye contact Attitude: Cooperative Speech: Limited spontaneous speech, somewhat soft. otherwise wnl Motor activity: Calm and without any tics, tremors or dyskinesias. Mood: 'so-so Affect: blunted- flat Thought process: generally goal directed Thought content: denies SI/violent ideation. Perception: denies AH/VH. does not appear to respond to internal stimuli Insight: fair Judgment: generally intact Diagnostics Vital Signs (24Hr): Vital Signs - 24 hr 02/27/25 20:00 02/28/25 07:34 Temperature 97.8 F 97.1 F Pulse Rate 85 72 Respiratory Rate 20 18 Blood Pressure 110/62 126/76 Pulse Oximetry 97 97 Oxygen Delivery Method Room Air Room Air BMI result Body Mass Index 33.4 Labs 02/22/25 11:24 02/22/25 11:24 Medications Medications Current Medications Acetaminophen (Acetaminophen 325 Mg Tablet) 650 mg PO Q6H PRN PRN Reason: Headache/Pain, Scale 1-10 Last Admin: 02/25/25 17:31 Dose: 650 mg Al Hydroxide/Mg Hydroxide (Magnesium Hydrox/Alum Hydrox 30 Ml Oral.Susp) 30 ml PO Q6H PRN PRN Reason: Heartburn/Nausea Last Admin: 02/24/25 15:25 Dose: 30 ml Aripiprazole (Aripiprazole Er 400 Mg Suser.Syr) 400 mg IM Q28D SERGIO Bupropion HCl (Bupropion Hcl Xl 300 Mg Tab.Er.24h) 300 mg PO DAILY SERGIO Last Admin: 02/28/25 08:27 Dose: 300 mg Calcium Carbonate (Calcium Carbonate 750 Mg Tab.Chew) 750 mg PO Q6H PRN PRN Reason: Heartburn Last Admin: 02/24/25 19:17 Dose: 750 mg Hydroxyzine HCl (Hydroxyzine Hcl 25 Mg Tablet) 25 mg PO Q6H PRN PRN Reason: mild anxiety Last Admin: 02/24/25 20:36 Dose: 25 mg Magnesium Hydroxide (Milk Of Magnesia 30 Ml Oral.Susp) 30 ml PO DAILY PRN PRN Reason: Constipation Melatonin (Melatonin 3 Mg Tablet) 9 mg PO BEDTIME PRN PRN Reason: insomnia Nicotine Polacrilex (Nicotine Polacrilex 2 Mg Gum) 2 mg BUCCAL Q2H PRN PRN Reason: Nicotine Cravings Olanzapine (Olanzapine 5 Mg Tablet) 5 mg PO BID PRN PRN Reason: agitation Omeprazole (Omeprazole 20 Mg Capsule.Dr) 20 mg PO DAILY@0630 [facility] Last Admin: 02/28/25 06:34 Dose: 20 mg Ondansetron HCl (Ondansetron Odt 4 Mg Tab.Rapdis) 4 mg TRANSLINGU Q8H PRN PRN Reason: Nausea and Vomiting Trazodone HCl (Trazodone Hcl 100 Mg Tablet) 100 mg PO BEDTIME PRN PRN Reason: insomnia Allergies Allergies Allergy/AdvReac Type Severity Reaction Status Date / Time No Known Allergies Allergy Verified 02/22/25 10:38 Assessment & Plan Assessment & Plan (1) Schizoaffective disorder, bipolar type: Status: Acute Code(s): F25.0 - Schizoaffective disorder, bipolar type Plan Plan: Admitted to for safety and stabilization Legal status- CV 15 min safety checks Admission medical consult done by hospitalist, reviewed by t/w. Labs and EKG reviewed. QTc 447 ms on 02/22/25 Milieu therapy Care coordination- will contact pt's care team on Wednesday to clarify when he [facility] Med[facility]- Continue bupropion 300 mg qd, trazodone 150 mg qhs Hydroxyzine prn for anxiety olanzapine 5 mg tid prn for agitation 02/24/25: Patient slept for 7 hours, requests to have trazodone mood to PRNs and lowered down to 100 mg. Patient requests melatonin at bedtime for sleep. Reports chest pain 02/16 pointed to meet chest, he thinks he may have heartburn instead. He reported that he feel depressed and hopeless the denies safety concerns. He actually from after the conversation in the bathroom. Review with patient of some medication changes today. Patient is receptive with the plan. Trazodone down to 100 mg, changed to p.r.n. per patient request, Increase melatonin 9 mg at bedtime for insomnia. Tums p.r.n. for heartburn. Zofran 4 mg Q 8 hours p.r.n. for nauseous and vomiting Omeprazole 20 mg daily in the morning 02/25/25: Patient was med compliant, denies side effects, feeling better with stomach issues/heartburn. Still feel little bit nauseous. Reports depression anxiety. Denies SI/SIB/HI/AVH. Per nursing, patient intermittently reports suicide thoughts, somewhat guarded and isolative with flat affect. 02/26/25: Reports gradual improvement in psychiatric and physical sx. Left lory w/ Natty from pt's care team to clarify when he received last dose of Abilify Maintena- awaiting call back. Continue current tx plan for now 02/27/25: Last Abilify Maintena dose confirmed by pt's outpatient support team - given 01/25. Will give next dose tomorrow. He seems to be around his baseline. Will likey d/c on 03/01 02/28: Stable, seems to be at baseline.Will d/c tomorrow Reason for continued inpatient stay Substantial Risk for: med/psych decompensation Time Spent With Patient Time: Total time managing care of this patient today 20____ minutes.
[2025-02-28 20:00] VITALS: BP 148/82; PULSE 97; RESP 20; TEMP 36.2; O2SAT 95
[2025-03-01 07:00] VITALS: BMI 34.6
[2025-03-01 08:00] VITALS: BP 131/73; PULSE 80; RESP 20; TEMP 36.5; O2SAT 97
[2025-03-01] MEDS: buPROPion HCl XL 300 MG TAB.ER.24H PO (08:46)
[2025-03-01] MEDS: ARIPiprazole ER 400 MG SUSER.SYR IM (11:17)
--- NOTE | 2025-03-01 11:49 | PC.NURSE ---
Patient engages easily. Reports mood continues depressed, anxious however improved from admission. Denies SI/HI plan or intent. Denies perceptual disturbances, no overt psychosis or expressed delusions. Discharge paperwork reviewed with patient, reports understanding. Appointments reviewed with patient, reports understanding. Medication reviewed with patient, reports understanding. Abilify Maintenna 400mg IM administered prior to discharge R deltoid. Information to obtain PCP through [facility] [place]. Aware to present to nearest emergency room, or call 911 if in crisis. All belongings taken with patient.
--- NOTE | 2025-03-01 18:49 | P.DS_ITS ---
DS: Providers Provider Date of Service: 03/01/25 Date of admission: 02/22/25 13:30 Date of discharge: 03/01/25 Primary care physician: [facility] Attending physician on admission: Flaca Maurer Consults: Willow Whiteside [employer]- admission H&P Attending physician on discharge: Flaca Maurer DS: Diagnosis Discharge Diagnosis (1) Schizoaffective disorder, bipolar type: Status: Acute DS: Medications Discharge Medications Home Medications: Previous Rx's ?Medication ?Instructions ?Recorded acetaminophen 325 mg tablet 650 mg (2 x 325 mg) PO Q6H PRN 03/01/25 Headache/Pain, Scale 1-10 #0 tabs aluminum-magnesium hydroxide 200 30 ml PO Q6H PRN Hear tburn/Nausea 03/01/25 mg-200 mg/5 mL oral suspension #0 mL (MAG-AL) aripiprazole 400 mg suspension, 400 mg IM Q28D 28 days #1 ea 03/01/25 extended rel.intramuscular syringe bupropion HCl 300 mg 24 hr tablet, 300 mg PO DAILY 30 days #30 tabs 03/01/25 extended release calcium carbonate (Antacid Ext Str 2.5 tab PO Q6H PRN Heartburn #0 03/01/25 (calcium carb)) tabs hydroxyzine HCl 25 mg tablet 25 mg PO TID PRN mild anx iety 90 03/01/25 days #30 tabs omeprazole 20 mg capsule,delayed 20 mg PO DAILY@0630 3 0 days #30 03/01/25 release caps Mental Status Exam Mental Status Exam Narrative: Appearance: fair grooming/hygiene, fair eye contact Attitude: Cooperative Speech: Limited spontaneous speech, somewhat soft. otherwise wnl Motor activity: Calm and without any tics, tremors or dyskinesias. Mood: 'okay' Affect: blunted- flat Thought process: generally goal directed Thought content: denies SI/violent ideation. States that he feels safe returning home Perception: denies AH/VH. does not appear to respond to internal stimuli Insight: fair Judgment: generally intact Data Cardiology Testing atient: Juan Case Ordering Physician: Ashlyn Jean-Baptiste PA-C Date of Service: 02/22/25 Procedure(s): ECG 12 lead EKG Accession Number(s): [id number] cc: Pressey,Ashlyn PA-C~ Reason for Exam: Check QTc interval Test Reason : SOB Blood Pressure : */* mmHG Vent. Rate : 85 BPM Atrial Rate : 85 BPM P-R Int : 174 ms QRS Dur : 98 ms QT Int : 376 ms P-R-T Axes : 35 11 26 degrees QTcB Int : 447 ms Normal sinus rhythm Nonspecific ST abnormality Abnormal ECG When compared with ECG of 11-Jan-2025 22:00, No significant change was found Referred By: Ashlyn Jean-Baptiste Electronically Signed By: Cheikh Anaya DS: Summary Hospital Course Hospital Course: Mr. Case is a 39 y/o Indian M with h/o schizoaffective d/o and multiple inpatient psychiatric admissions who self presented to [place] [facility] [place] 02[place]22[place]25 due to SI to cut his neck. He was transferred to for safety and stabilization and signed a CV. Pt has had multiple inpt psychiatric admission at [facility], most recently from 01/05- 01/12/25. He reports that he has been taking his meds as rx'd. He started feeling depressed again 1.5-2 wks ago and wasn't eating or drinking, sleeping a lot, anhedonia, then experienced SI with a plan to cut his neck. Admission labs and EKG were done and the hospitalist performed an admission medical H&P. UDS and BAL were neg. EKG on 02/22/25 showed QTc of 447 ms. Pt was continued on his home medications, including: bupropion XL 300 mg qam, hydroxyzine 25 mg tid prn for anxiety and trazodone 150 mg qhs. He declined to titrate the bupropion since he reported that it was recently adjusted. He was offered olanzapine 5 mg tid prn for agitation. His Abilify Maintena was held until the team could verify when he received his last dose. He was given Abilify Maintena 400 mg injection on the day of discharge () after we confirmed that his last dose was given on 01/25. Trazodone was tapered and ultimately d/c'd per pt request, as he felt like it contributed to nightmares. He was started on melatonin 9 mg. He c/o heart burn and nausea and was started on omeprazole and Tums with good effect. Pt was medication adherent. He spent most of his time in his room but progressively spent more time in the milieu, keeping to himself on the last couple days of admission. The SI subsided early in his admission and he denid AH/VH or any violent ideation. He did not engage in any inappropriate behaviors throughout his admission. He ate his meals. He reported ongoing issues with insomnia but declined to make further medication adjustments to address it. He denied any medication SE. Time spent discussing smoking cessation with patient: 3 to 10 minutes (denies tobacco use) Status at Discharge Functional status at discharge: independent ambulation Overall status at discharge: patient is back to baseline Time Spent with Patient Time attestation: Total time managing care of this patient today ____ minutes. Time spent: Greater than 30 minutes Specific discharge activities: 45 min spent on pt care on DOS including pt interview, care coordination and d/c planning Discharge Plan Discharge Anticipated Discharge Date/Time: 03/01/25 11:06 Patient Disposition: Home, Self-Care Discharge Diagnosis: Schizoaffective disorder, bipolar type Referrals: Karol Waldrop ([facility]) [Other] - 03/20/25 11:20 am Referral Note: in person appointment Center,[facility] [Primary Care Provider, Medical] - 1 Week Discharge Medications: New acetaminophen 325 mg Tablet 650 mg PO Q6H PRN (Reason: Headache/Pain, Scale 1-10) Qty: 0 0RF bupropion HCl 300 mg Tablet Extended Release 24 Hr 300 mg PO DAILY 30 Days Qty: 30 0RF hydroxyzine HCl 25 mg Tablet 25 mg PO TID PRN (Reason: mild anxiety) 90 Days Qty: 30 0RF Antacid Ext Str (calcium carb) 300 mg (750 mg) Tablet,Chewable 2.5 tab PO Q6H PRN (Reason: Heartburn) Qty: 0 0RF omeprazole 20 mg Capsule,Delayed Release(Dr/Ec) 20 mg PO DAILY@0630 30 Days Qty: 30 0RF MAG-AL 200-200 mg/5 mL Suspension 30 ml PO Q6H PRN (Reason: Heartburn/Nausea) Qty: 0 0RF aripiprazole 400 mg Suspension,Extended Rel Syring 400 mg IM Q28D 28 Days Qty: 1 0RF Rx Instructions: Last injection given 03/01/25 at [facility] Discontinued Abilify Maintena 400 mg suspension,extended rel syring 400 mg IM Q28D 24 Days Qty: 1 0RF Rx Instructions: last received 02/11/24 bupropion HCl 300 mg Tablet Extended Release 24 Hr 300 mg PO DAILY 30 Days Qty: 30 0RF trazodone 150 mg tablet 150 mg PO BEDTIME 30 Days Qty: 30 0RF Discharge Orders: Discharge Order (Routine); Ordered 03/01/25 Ordered By: Flaca Maurer Diet: Regular diet Activity on Discharge: No Restrictions Stand Alone Forms: Patient Portal Discharge page, Community Support Print Language: Namibian Care Plan Goals: Maintain safe behaviors Practice coping skills Take your medications as prescribed Maintain regular follow-ups with your outpatient providers Health Concerns: Mood stability and behaviors Plan of Treatment: Follow up with your psychiatric provider, PCP and other outpatient providers Take your medication as prescribed Assessment: Risk assessment at the time of discharge: Patient was interviewed on the day of discharge and found to be fully oriented, without any SI or violent ideation. Pt has improved insight and judgment and plans to continue treatment Pt is not at imminent risk of harm to self or others and has a safety plan that includes presenting to the closest ER or calling 911 if feeling unsafe. Pt has been observed closely by unit staff and has not engaged in any behaviors that suggest dangerous to self or others and has demonstrated appropriate bheaviors and impulse control. Discharge Date/Time: 03/01/25 11:34
== END 2025-03-01 11:34 | disposition home or self-care (01) | DRG 885 ==
LOC: HO.ED 13:44 → HO.PADLT16 14:07
PROVIDERS: Physician Assistant Medical; Admitting Provider Psychiatry & Neurology Psychiatry; Emergency Provider Emergency Medicine; Visit Provider Psychiatry & Neurology Psychiatry
DX: F25.0 Schizoaffective disorder, bipolar type (principal); R45.851 Suicidal ideations; Z20.822 Contact with and (suspected) exposure to COVID-19; Z79.899 Other long term (current) drug therapy
CPT/HCPCS: 80053; 80143; 80179; 80307; 81001; 85025; 87635; 93005; 99285; J0401; S9485

== ENCOUNTER → 2025-02-22 11:02 | Outpatient (BNV) | payer OTHER, SELFPAY | PROVIDERS: Admitting Provider Psychiatry & Neurology Psychiatry; Emergency Provider Emergency Medicine; Visit Provider Internal Medicine Cardiovascular Disease | DX: R94.31 Abnormal electrocardiogram [ECG] [EKG] (principal); R06.02 Shortness of breath | CPT/HCPCS: 93010 ==

== ENCOUNTER → 2025-02-22 13:30 | Outpatient (BNV) | payer OTHER, SELFPAY | PROVIDERS: Admitting Provider Psychiatry & Neurology Psychiatry; Emergency Provider Emergency Medicine; Visit Provider Psychiatry & Neurology Psychiatry | DX: F32.A Depression, unspecified (principal) | CPT/HCPCS: 90792; 99231; 99232; 99239 ==

== ENCOUNTER → 2025-02-22 13:30 | Outpatient (BNV) | payer OTHER, SELFPAY | PROVIDERS: Admitting Provider Psychiatry & Neurology Psychiatry; Emergency Provider Emergency Medicine; Visit Provider Nurse Practitioner Family | DX: F32.A Depression, unspecified (principal) | CPT/HCPCS: 99221 ==